=== PATIENT | male | born 1935 | race Caucasian/White ===

== ENCOUNTER 2023-05-17 09:37 | Outpatient (OUT) | payer MEDICARE, SELFPAY ==
--- NOTE | 2023-05-17 09:44 | ECG_ITS ---
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: : 1935 Requested By: JEFFREY GRIMM Order Number: [id number] Reading MD: ZAID CANSECO Measurements Intervals [place] Rate: 62 P: -24 LA: 181 QRS: -54 QRSD: 126 T: 77 QT: 444 QTc: 452 Interpretive Statements SINUS RHYTHM WITH OCCASIONAL VENTRICULAR PREMATURE COMPLEXES LEFT ANTERIOR FASCICULAR BLOCK [QRS AXIS <= -45, QR IN I, RS IN II] VOLTAGE CRITERIA FOR LVH [MEETS CRITERIA IN ONE OF: R(aVL), S(V1), R(V5), R(V5/V6)+S(V1)] POSSIBLE SEPTAL MYOCARDIAL INFARCTION [30 ms Q WAVE IN V1/V2], OF INDETERMINATE AGE No previous ECG available for comparison Electronically Signed On 05-17-2023 22:35:32 EDT by ZAID CANSECO
--- NOTE | 2023-05-17 10:40 | XR_ITS ---
The [address] [address] Patient Name: CHRISTIANE SALAS MRN: [id number] date: 1935 Sex: M Assigned Patient Location: [facility] Current Patient Location: [facility] Accession/Order Number: [id number] Exam Date: 05/17/2023 10:40 Report Date: 05/17/2023 11:50 At the request of: JEFFREY GRIMM Procedure: XR chest 2V EXAM: XR chest 2V HISTORY: Preop exam COMPARISON: None. TECHNIQUE: PA and lateral views of the chest. FINDINGS: The cardiomediastinal silhouette is normal. No focal consolidation is identified. There is no pneumothorax. No pleural effusion is noted. The osseous structures are intact. XR/XR chest 2V IMPRESSION: No acute cardiopulmonary process. Electronically authenticated by: CHAZ DALAL Date: 05/17/2023 11:50
[2023-05-17 10:46] LABS: Basophils Absolute Auto 0.1 10^3/uL (0.0-0.1); Eosinophils Absolute Auto 0.2 10^3/uL (0.0-0.7); Eosinophils Percent Auto 2.7 % (0.9-7.0); Hemoglobin 14.2 g/dL (14.0-18.0); Immature Granulocytes Abs Auto 0.01 10^3/uL (0.00-0.03); Immature Granulocytes Pct Auto 0.2 % (0.0-0.5); Lymphocytes Absolute Auto 1.8 10^3/uL (1.2-3.8); Lymphocytes Percent Auto 30.4 % (20.5-60.0); Mean Corpuscular HGB Conc 32.3 g/dL (29.9-35.2); Mean Corpuscular Hemoglobin 28.4 pg (25.9-34.0); Monocytes Absolute Auto 0.7 10^3/uL (0.3-0.8); Monocytes Percent Auto 11.2 % (1.7-12.0); Neutrophils Absolute Auto 3.2 10^3/uL (1.4-6.5); Neutrophils Percent Auto 54.5 % (43.0-75.0); Platelet Count 133 10^3/uL (150-450); Red Cell Distribution Width 13.9 % (11.0-15.0); White Blood Count 5.9 10^3/uL (4.0-11.0)
[2023-05-17 11:05] LABS: INR 1.06; Partial Thromboplastin Time 26.8 sec (22.3-36.2); Prothrombin Time 11.2 sec (9.0-11.6)
[2023-05-17 11:10] LABS: Anion Gap 10.1; Calcium 8.9 mg/dL (8.5-10.1); Carbon Dioxide 29.2 mmol/L (21.0-32.0); Chloride 107 mmol/L (98-107); Estimated GFR (African America >60 (>=60); Estimated GFR (Non-African Ame >60 (>=60); Glucose 99 mg/dL (74-106); Potassium 4.3 mmol/L (3.5-5.1); Sodium 142 mmol/L (136-145)
== END 2023-05-17 09:38 | disposition home or self-care (01) ==
LOC: PST 09:40
PROVIDERS: Visit Provider Urology
DX: Z01.810 Encounter for preprocedural cardiovascular examination (principal); Z01.812 Encounter for preprocedural laboratory examination; N20.1 Calculus of ureter
CPT/HCPCS: 71046; 80048; 85025; 85610; 85730; 93005

== ENCOUNTER 2023-05-19 09:13 | Day surgery (SDC) | payer MEDICARE, SELFPAY ==
[2023-05-17 10:01] VITALS: BP 143/82; PULSE 69; RESP 16; TEMP 36.4; O2SAT 95; BMI 28.3
[2023-05-19] VITALS (9 sets, daily range): BP systolic 140–159; BP diastolic 69–82; PULSE 62–70; RESP 16–20; TEMP 36.1–36.2; O2SAT 93–96
--- NOTE | 2023-05-19 | FL_ITS ---
[address] [address] Patient Name: CHRISTIANE SALAS MRN: [id number] date: 1935 Sex: M [facility] Patient Location: [facility] Accession/Order Number: [id number] Exam Date: 05/19/2023 11:25 Report Date: 05/19/2023 13:23 At the request of: JEFFREY GRIMM Procedure: FL fluoroscopy <1hr NON-READ EXAM: FL fluoroscopy <1hr NON-READ HISTORY: TECHNIQUE: FINDINGS: Please see Operative Report. Electronically authenticated by: RADIOLOGIST NO Date: 05/19/2023 13:23
--- OUTSIDE RECORDS SUMMARY | 2023-05-19 09:21 | XMS_ITS | CCD ---
Author Name Unknown Address [address] [facility] [address] [place] [address] Organization [facility] Care Team Providers Care Mortgage Underwriter Name Role Phone IVETTE PURCELL Unavailable Unavailable MAST, CANDELARIA Unavailable Unavailable BRITNI SANTOS Unavailable Unavailable MAST, CANDELARIA Unavailable Unavailable MCKEON, JEFFREY Admitting Unavailable MCKEON, JEFFREY Attending Unavailable MCKEON, JEFFREY Consulting Unavailable MAST, CANDELARIA Consulting Unavailable MCKEON, JEFFREY Admitting Unavailable MCKEON, JEFFREY Attending Unavailable MCKEON, JEFFREY Consulting Unavailable ARTEM REYES Consulting Unavailable PONCHO HOLM Consulting Unavailable MAST, CANDELARIA Consulting Unavailable Mast, Candelaria E Unavailable Unavailable Unavailable Unavailable Unavailable Da Saba Unavailable Mast, Candelaria Unavailable Mast, Candelaria Unavailable Britni Santos Unavailable Ivette Purcell Admitting Unavailable Ivette Purcell Attending Unavailable Mast, Candelaria Primary Care Unavailable Mast, Candelaria Attending Unavailable Mast, Candelaria Admitting Unavailable Mast, Candelaria Primary Care Unavailable Jazzy, Dr. Butterfield Attending Unavaila ble Mast, Dr. Candelaria Gonzalez Primary Care Unavailabl e Mast, Dr. Candelaria Gonzalez Primary Care Unavailabl e Ivette Purcell Referring Unavailable Ivette Purcell Attending Unavailable Ivette Purcell Attending Unavailable Mast, Dr. Candelaria Gonzalez Primary Care Unavailabl e Ivette Purcell Referring Unavailable Mast, Dr. Candelaria Gonzalez Primary Care Unavailabl e Mast, Dr. Candelaria Gonzalez Primary Care Unavailabl e Ivette Purcell Referring Unavailable Ivette Purcell Attending Unavailable Candelaria Gusman DO Primary Care Provider Ivette Purcell MD Unavailable IVETTE PURCELL Referring Unavailable CANDELARIA GUSMAN Primary Care Unavailable IVETTE PURCELL Attending Unavailable CANDELARIA GUSMAN Primary Care Unavailable Desirae Silva Unavailable CANDELARIA GUSMAN Primary Care Physician Jeffrey MCKEON Admitting Unavailable Jeffrey MCKEON Referring Unavailable Jeffrey MCKEON Attending Unavailable Buddy Pleitez Attending Unavailable MCKEONJeffrey Attending Unavailable Jeffrey MCKEON Attending Unavailable Jeffrye MCKEON Admitting Unavailable Jeffrey MCKEON Attending Unavailable Allergies Allergy Classification Reported Allergen(s) Allergy Type Date of Onset Reaction(s) Facility (6 sources) Penicillin; Translations: [penicillin] Drug Allergy 5 Unknown, [facility] Repository (2 sources) predniSONE; Translations: [predniSONE] Drug Allergy [facility] Repository (18 sources) Angiotensin Converting Enzyme (Venkata) Inhibitors; Translations: [VENKATA Inhibitors] Allergy to drug (finding) 3 [facility] 3 Repository (18 sources) Penicillins; Translations: [Penicillins] Allergy to drug (finding) 3 [facility] 3 Repository (18 sources) Amoxicillin; Translations: [amoxicillin] Drug Allergy dizziness,nause a, stomach upset, dizziness [facility] Other (17 sources) Penicillin G Drug Allergy Unknown [facility] Other (1 source) Penicillins Drug allergy (disorder) 0 [facility] Repository (1 source) predniSONE Drug Allergy 0 [facility] Repository (1 source) Angiotensin-con verting enzyme inhibitor agent Drug Allergy 3 [facility] (1 source) Penicillins Drug Allergy 3 [facility] Work Phone: Medications Current Medications Medication Drug Class(es) Dates Sig (Normalized) Sig (Original) acetaminophen 325 mg / HYDROcodone bitartrate 5 mg oral tablet (1 source) Opioid Agonist Start: 04-13-2023 End: 04-16-2023 [place] 325 mg-5 mg oral tablet 1 tab(s), Oral, q6hr for pain for 3 day(s), 12 tab(s), Refill(s) 0, [facility] [id number], 167.6, cm, 04/13/23 10:07:00 EST, Height/Length Dosing, 79, kg, 04/13/23 10:07:00 EST, Weight Dosing Start Date: 04/13/23 Stop Date: 04/16/23 Status: Ordered albuterol 0.83 mg/ml inhalation solution (20 sources) beta2-Adrenergic Agonist Start: 05-06-2023 albuterol 0.083% Inh Leticia 3 mL Refill(s) 0 Start Date: 05/06/23 Status: Ordered Albuterol Sulfat e (2.5 MG/3ML) 0.083% USE ONE VIAL VIA NEBULIZER THREE TIMES A DAY NEEDED FOR INHALATION. Inhalation Three times a day PRN for 30 days PRN Active take 1 puff(s) by in halation every four hours albuterol 90 mcg/actuation inhaler Inhal e 1 puff every 4 hours if needed. 0 Active Albuterol Sulfat e (2.5 MG/3ML) 0.083% USE ONE VIAL VIA NEBULIZER THREE TIMES A DAY NEEDED FOR INHALATION. Inhalation Three times a day PRN PRN Active ascorbic acid 226 mg / beta carotene 42443 unt / cuprous oxide 0.8 mg / dl-alpha tocopheryl acetate 200 unt / zinc oxide 34.8 mg oral capsule (1 source) Vitamin C PreserVision ARE DS - 2 Orally daily Active aspirin 81 mg delayed release oral tablet (20 sources) Platelet Aggregation Inhibitor, Nonsteroidal Anti-inflammatory Drug Start: 0 take 1 tablet by mouth once daily aspirin 81 mg Oral EC Tab 81 mg = 1 tab(s), Oral, Daily, Refills(s) 0 Start Date: 09/26/19 Status: Ordered take 1 tablet by francis th every twenty-four hours Aspirin 81 MG 1 tablet Orally Once a day for 30 day(s) Active doxycycline hyclate 100 mg oral tablet (3 sources) Tetracycline-class Drug Start: 03-10-2021 take 1 tablet by mouth every twelve hours Doxycycline Hyclate 100 MG 1 tablet Orally every 12 hrs for 10 days Mar, Active Eye Vitamins (17 sources) Eye Vitamins Orally Active Fish Oils (20 sources) Start: 10-23-2018 take 1 capsule by mouth once daily Fish Oil 1 cap(s), Oral, Daily, Refill(s) 0 Start Date: 10/23/18 Status: Ordered Fish Oil 1200 MG Oral Capsule TAKE DIRECTED. Quantity: 0 Refills: 0 Ordered: 14-Oct-2021 DO Active take 1 capsule by mouth once niyah ly Fish Oil 500 MG Oral Capsule TAKE 1 CAPSULE Daily Quantity: 0 Refills: 0 Ordered: 08-Jan-2021 DO Active take 1 capsule by mouth once niyah ly Fish Oil 1200 MG 1 capsule Orally Once a day Active fluocinonide 0.0005 mg/mg topical gel (11 sources) Corticosteroid Start: 05-06-2023 fluocinonide T op 0.05% Gel Refill(s) 0 Start Date: 05/06/23 Status: Ordered Start: 04-06-2022 Fluocinonide 0 .05 % External Gel APPLY TOPICALLY EVERY DAY NEEDED Quantity: 30 Refills: 0 Ordered: 06-Apr-2022 DO Start : 06-Apr-2022 Active fluocinonide (Li dex) 0.05 % gel Apply topically once daily as needed. 0 Active fluticasone propionate 0.05 mg/actuat metered dose nasal spray (18 sources) Corticosteroid take 1 spray(s) nasa l route twice daily as needed Flonase 50 MCG/ACT 1 spray in each nostril Nasally Twice a day for 30 day(s) prn Active take 1 spray(s) nasa l route twice daily as needed Flonase 50 MCG/ACT 1 spray in each nostril Nasally Twice a day for 30 day(s) prn Active 60 actuat fluticasone propionate 0.25 mg/actuat / salmeterol 0.05 mg/actuat dry powder inhaler (4 sources) Corticosteroid, beta2-Adrenergic Agonist Start: 03-17-2022 take 1 puff(s) by inhalation twice daily Wixela Inhub 250-50 MCG/ACT 1 puff Inhalation Twice a day for 30 days Mar, Active 14 actuat fluticasone furoate 0.1 mg/actuat / vilanterol 0.025 mg/actuat dry powder inhaler (19 sources) Corticosteroid, beta2-Adrenergic Agonist Start: 03-21-2023 take 1 puff(s) by inhalation once daily Fluticasone Furoate-Vilanter ol 100-25 MCG/ACT 1 puff Inhalation Once a day for 90 days Mar, Active Start: 07-16-2019 take 1 puff(s) by in halation every other day Breo Ellipta 1 puff(s), Inhalation, Every other day Start Date: 07/16/19 Status: Ordered Start: 04-16-2019 take 1 puff(s) by in halation every other day BREO ELLIPTA 100 mcg/25 mcg 1 puff Inhalation every other day for 90 days Apr, Active take 1 puff(s) by in halation once daily Breo Ellipta 100-25 MCG/ACT 1 puff Inhalation Once a day for 90 days Active Breo Ellipta 200 -25 MCG/INH Inhalation Aerosol Powder Breath Activated as directed Quantity: 0 Refills: 0 Ordered: 08-Jan-2021 DO Active Hydrochlorothiazide-25 mg 25 mg (12 sources) Start: 04-16-2019 take 0.5 tablet by mouth once daily Hydrochlorothiazide-25 mg 25 mg 0.5 tablet Orally daily Apr, Active Start: 04-16-2019 take 1 tablet by francis th every other day Hydrochlorothiazide-25 mg 25 mg 1 tablet Orally every other day for 30 day(s) Apr, Active Hydrochlorothiazide-25 mg 25 MG (5 sources) Start: 04-16-2019 take 0.5 tablet by mouth once daily Hydrochlorothiazide-25 mg 25 MG 0.5 tablet Orally daily Apr, Active hydrocortisone 0.025 mg/mg topical ointment (2 sources) Corticosteroid Start: 05-06-2023 hydrocortisone topical 2.5% ointment Refill(s) 0 Start Date: 05/06/23 Status: Ordered Hydrocortisone 2 .5 % 1 application Externally Once a day Active Knee Scooter for Ambulation (2 sources) Start: 09-27-2019 Knee Scooter for Ambulation Knee Scooter for Ambulation, Print Requisition, Compound Start Date: 09/27/19 Status: Ordered Magnesium (1 source) take 2 tablets by mouth once daily Magnesium 200 MG 2 tablets with a meal Orally Once a day Active metroNIDAZOLE 0.0075 mg/mg topical gel (11 sources) Nitroimidazole Antimicrobial Start: 05-06-2023 metronidazole topical 0.75% gel Refill(s) 0 Start Date: 05/06/23 Status: Ordered Start: 04-06-2022 metroNIDAZOLE 0.75 % External Gel APPLY TOPICALLY TO FACE EVERY DAY Quantity: 45 Refills: 0 Ordered: 08-Apr-2022 DO Start : 06-Apr-2022 Active metroNIDAZOLE (M etrogel) 0.75 % gel Apply topically once daily. APPLY TOPICALLY TO FACE 0 Active Nitro 0.4 mg Tab (3 sources) Start: 10-23-2018 Nitro 0.4 mg T ab = 1 tab(s), SubLingual, q5min, PRN Chest pain, # 25 tab(s), Refills(s) 3 Start Date: 10/23/18 Status: Ordered nitroglycerin 0.4 mg sublingual tablet (20 sources) Nitrate Vasodilator Nitroglyceri n 0.4 MG 1 tablet under the tongue and allow to dissolve as needed Sublingual as needed PRN Active nitroglycerin (N itrostat) 0.[address] 1 tablet (0.4 mg) under the tongue every 5 minutes if needed for chest pain. UNDER THE TONGUE EVERY 5 MINUTES UP TO 3 DOSES NEEDED FOR CHEST PAIN. 0 Active omega 0-ejv-cda-fish oil 360 mg-108 mg- 180 mg-1,200 mg capsule (1 source) omega 3-dha-epa- fish oil 360 mg-108 mg- 180 mg-1,200 mg capsule Take by mouth. 0 Active ondansetron 4 mg oral tablet (2 sources) Serotonin-3 Receptor Antagonist Start: 021 take 1 tablet by mouth three times daily Zofran ODT 4 mg Tab 4 mg = 1 tab(s), Oral, TID, # 10 tab(s), Refills(s) 0, Pharmacy: [id number], 167.6, cm, 12/19/20 13:23:00 EDT, Height/Length Dosing, 77, kg, 12/19/20 13:23:00 EDT, Weight Dosing Start Date: 12/19/20 Status: Ordered predniSONE 20 mg oral tablet (3 sources) Start: 022 take 3 tablets by mouth every twenty-four hours predniSONE 20 MG 3 tablet Orally Once a day for 5 days Mar, Active PreserVision AREDS 2 (3 sources) Start: 021 take 1 tablet by mouth twice daily PreserVision AREDS 2 1 tab(s), Oral, BID, Refill(s) 0 Start Date: 12/19/20 Status: Ordered rosuvastatin calcium 40 mg oral tablet (20 sources) HMG-CoA Reductase Inhibitor Start: 019 take 1 tablet by mouth at bedtime Crestor 40 mg Tab 40 mg = 1 tab(s), Oral, Bedtime, Refills(s) 0 Start Date: 10/23/18 Status: Ordered tacrolimus 0.001 mg/mg topical ointment (2 sources) Calcineurin Inhibitor Immunosuppressant Start: 024 tacrolimus topical 0.1% ointment Refill(s) 0 Start Date: 05/06/23 Status: Ordered Protopic Active tamsulosin hydrochloride 0.4 mg oral capsule (1 source) alpha-Adrenergic Neel Start: 04-13-2023 End: 04-27-2023 take 1 capsule by mouth once daily Flomax 0.4 mg Cap 0.4 mg = 1 cap(s), Oral, Daily, X 14 day(s), # 14 cap(s), Refills(s) 0, Pharmacy: [id number], 167.6, cm, 04/13/23 10:07:00 EST, Height/Length Dosing, 79, kg, 04/13/23 10:07:00 EST, Weight Dosing Start Date: 04/13/23 Stop Date: 04/27/23 Status: Ordered valsartan 80 mg oral tablet (2 sources) Angiotensin 2 Receptor Neel Start: 03-12-2021 take 1 tablet by mouth every twenty-four hours Valsartan 80 MG 1 tablet Orally Once a day for 30 day(s) Mar, Active vit L-P-lezqop-zinc-lut ein (Eye Multivit-Lutein,C-E -Cu-Zn,) 226 mg-90 mg-2 mg-34.8 mg-5 mg capsule (1 source) vit W-M-oagbpm-zinc-susy tein (Eye Multivit-Lutein,C- E-Cu-Zn,) 226 mg-90 mg-2 mg-34.8 mg-5 mg capsule Take by mouth. 0 Active Zofran ODT 4 mg Tab-Dis (2 sources) Start: 04-13-2023 take 1 tablet by mouth every eight hours as needed for nausea Zofran ODT 4 mg Tab-Dis 4 mg = 1 tab(s), Oral, q8hr, PRN Nausea/Vomiting, # 30 tab(s), Refills(s) 0, Pharmacy: [id number], 167.6, cm, 04/13/23 10:07:00 EST, Height/Length Dosing, 79, kg, 04/13/23 10:07:00 EST, Weight Dosing Start Date: 04/13/23 Status: Ordered Completed/Discontinued Medications Medication Drug Class(es) Dates Sig (Normalized) Sig (Original) Eye Multivitamin/Lutein CAPS (10 sources) Eye Multivitamin /Lutein CAPS TAKE DIRECTED. Quantity: 0 Refills: 0 Ordered: 14-Oct-2021 DO Active hydroCHLOROthiazide 25 mg oral tablet (20 sources) Thiazide Diuretic Start: End: 4 take 1 tablet by mouth once daily hydroCHLOROthiazide (HYDRODiuril) 25 mg tablet Take 1 tablet (25 mg) by mouth once daily. 0 07/01/2020 03/08/2023 Discontinued (Therapy completed) Start: 09-26-2019 take 1 tablet by francis th every other day hydrochlorothiazide 25 mg oral tablet 25 mg = 1 tab(s), Oral, Every other day, Refills(s) 0 Start Date: 09/26/19 Status: Ordered take 0.5 tablet by m outh once daily hydroCHLOROthiazide 25 MG Oral Tablet TAKE 0.5 TABLET Daily Quantity: 45 Refills: 3 Ordered: 15-Jul-2022 DO Active losartan potassium 25 mg oral tablet (15 sources) Angiotensin 2 Receptor Neel Start: 03-10-2020 take 0.5 tablet by mouth once daily Losartan Potassium 25 MG Oral Tablet TAKE 1/2 TABLET BY MOUTH ONE TIME A DAY Quantity: 45 Refills: 0 Ordered: 05-Dec-2020 DO Start : 10-Mar-2020 Active Start: 10-23-2018 losartan 25 mg Tab 12.5 mg = 0.5 tab(s), Oral, Bedtime, Refills(s) 0 Start Date: 10/23/18 Status: Ordered magnesium oxide 400 mg oral tablet (2 sources) Start: 11-18-2022 take 1 tablet by mouth twice daily Magnesium Oxide 400 MG Oral Tablet TAKE 1 TABLET TWICE DAILY. Quantity: 180 Refills: 1 Ordered: 18-Nov-2022 Ivette Purcell MD Start : 18-Nov-2022 Active magnesium oxide (Mag-Ox) 400 mg tablet 1 tablet (400 mg) once daily. 0 Active 24 hr metoprolol succinate 25 mg extended release oral tablet (20 sources) beta-Adrenergic Neel Start: 11-18-2022 take 1 tablet by mouth once daily Metoprolol Succinate ER 25 MG Oral Tablet Extended Release 24 Hour TAKE 1 TABLET DAILY. Quantity: 90 Refills: 3 Ordered: 18-Nov-2022 Ivette Purcell MD Start : 18-Nov-2022 Active Start: 08-06-2020 take 0.5 tablet by out twice daily Metoprolol Tartrate 25 MG Oral Tablet TAKE 1/2 (ONE-HALF) TABLET BY MOUTH TWICE DAILY Quantity: 90 Refills: 0 Ordered: 11-Aug-2022 Ivette Purcell MD Start : 06-Aug-2020 Active Start: 08-06-2020 End: 03-08-2023 take 0.5 tablet by mouth once daily metoprolol tartrate (Lopressor) 25 mg tablet Take 0.5 tablets (12.5 mg) by mouth once daily. 0 08/06/2020 03/08/2023 Discontinued (Duplicate order) Start: 09-26-2019 Metoprolol tar trate 25 mg Tab 12.5 mg = 0.5 tab(s), Oral, BID Start Date: 09/26/19 Status: Ordered take 1 tablet by francis once daily metoprolol tartrate (Lopressor) 25 mg tablet Take 1 tablet (25 mg) by mouth once daily. 0 Active Problems Active Problems Problem Classification Problem Date Documented Date Episodic/Chronic Asthma (20 sources) Asthma; Translations: [Asthma, unspecified type, unspecified] Onset: 3 Resolved: 2 Chronic Calculus of urinary tract (11 sources) Calculus of kidney; Translations: [Renal colic] Onset: 9 Episodic Cardiac dysrhythmias (20 sources) Unspecified atrial fibrillation; Translations: [Cardiac arrhythmia] Onset: 9 Resolved: 2 Chronic Cardiac dysrhythmias (12 sources) Bradycardia, unspecified; Translations: [Bradycardia] Onset: 3 Episodic Chronic obstructive pulmonary disease and bronchiectasis (20 sources) Chronic obstructive lung disease; Translations: [Chronic obstructive pulmonary disease, unspecified] Onset: 1 Resolved: 1 Chronic Coronary atherosclerosis and other heart disease (20 sources) Atherosclerotic heart disease of [place] coronary artery without angina pectoris; Translations: [Disorder of coronary artery] Onset: 8 03-08-2023 Chronic Coronary atherosclerosis and other heart disease (1 source) Presence of coronary angioplasty implant and graft; Translations: [PRESENCE COR ANGPLSTY IMPLANT AND GRAFT] Onset: 9 Episodic Coronary atherosclerosis and other heart disease (1 source) Coronary atherosclerosis and other heart disease Onset: 8 Disorders of lipid metabolism (20 sources) Hyperlipidemia; Translations: [Other and unspecified hyperlipidemia] Onset: 3 03-08-2023 Chronic Disorders of lipid metabolism (1 source) Pure hypercholesterolemia, unspecified; Translations: [PURE HYPERCHOLESTEROLEMIA UNSPEC] Onset: 9 Essential hypertension (20 sources) Essential (primary) hypertension; Translations: [Hypertensive disorder] Onset: 8 Resolved: 2 Chronic Essential hypertension (2 sources) Essential hypertension Onset: 8 Genitourinary symptoms and ill-defined conditions (10 sources) Hematuria, unspecified; Translations: [Microscopic hematuria] Onset: 9 09-17-2018 Episodic Heart valve disorders (20 sources) Aortic valve stenosis; Translations: [Aortic valve disorders] Onset: 3 03-08-2023 Chronic Heart valve disorders (4 sources) Cardiac murmur, unspecified; Translations: [Heart murmur] Onset: 9 09-17-2018 Episodic Hyperplasia of prostate (6 sources) Benign prostatic hyperplasia without lower urinary tract symptoms; Translations: [Benign prostatic hypertrophy with outflow obstruction] Onset: 9 07-16-2019 Chronic Immunizations and screening for infectious disease (8 sources) Patient encounter status; Translations: [Other specified vaccination] Onset: 2 Resolved: 2 Episodic Inflammatory conditions of male genital organs (3 sources) 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-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 Other aftercare (1 source) ocean transportation intermediary (current) use of anticoagulants; Translations: [PLATING EQUIPMENT TENDER CURRNT USE ANTICOAGULANTS] Onset: 9 Episodic Other aftercare (1 source) [facility] (current) use of aspirin; Translations: [HALF-WAY CURRENT USE OF ASPIRIN] Onset: 9 Episodic Other and ill-defined heart disease (18 sources) Diastolic dysfunction; Translations: [Heart disease, unspecified] Chronic Other and ill-defined heart disease (4 sources) Heart disease, unspecified; Translations: [Diastolic dysfunction I51.9] Onset: 1 Resolved: 2 Chronic Other diseases of kidney and ureters (1 source) Urinary tract obstruction; Translations: [Hydronephrosis with renal and ureteral calculous obstruction] Onset: 4 Episodic Other injuries and conditions due to external causes (3 sources) Compression injury of nerve 07-16-2019 Episodic Other lower respiratory disease (18 sources) Dyspnea; Translations: [Other respiratory abnormalities] Onset: 3 12-15-2022 Episodic Other lower respiratory disease (1 source) Dyspnea on exertion; Translations: [Other forms of dyspnea] 03-08-2023 Episodic Other lower respiratory disease (2 sources) Other forms of dyspnea; Translations: [Other forms of dyspnea] Onset: 3 Episodic Other nutritional; endocrine; and metabolic disorders (18 sources) Overweight in adulthood with body mass index of 25 or more but less than 30; Translations: [Overweight] Onset: 3 03-08-2023 Episodic Other nutritional; endocrine; and metabolic disorders (3 sources) Body mass index 25-29 - overweight 07-16-2019 Episodic Ashley-; endo-; and myocarditis; cardiomyopathy (except that caused by tuberculosis or sexually transmitted disease) (18 sources) Valvular endocarditis; Translations: [Endocarditis, valve unspecified, unspecified cause] Onset: 3 Chronic Residual codes; unclassified (17 sources) Sleep apnea; Translations: [Unspecified sleep apnea] Onset: 3 12-15-2022 Chronic Residual codes; unclassified (1 source) Sleep apnea, unspecified Chronic Residual codes; unclassified (1 source) Obstructive sleep apnea syndrome; Translations: [Obstructive sleep apnea (adult) (pediatric)] 03-08-2023 Chronic Residual codes; unclassified (2 sources) Obstructive sleep apnea (adult) (pediatric); Translations: [Obstructive sleep apnea (adult) (pediatric)] Onset: 3 Chronic Retinal detachments; defects; vascular occlusion; and retinopathy (20 sources) Degenerative disorder of macula ; Translations: [Macular degeneration] Chronic Screening and history of mental health and substance abuse codes (5 sources) Personal history of nicotine dependence; Translations: [Ex-smoker] Onset: 9 03-08-2023 Episodic Spondylosis; intervertebral disc disorders; other back problems (19 sources) Acute back pain with sciatica; Translations: [Lumbago with sciatica, left side] Episodic Substance-related disorders (3 sources) Smoker 09-25-2019 Chronic Comment on above: Added secondary to d ocumentation in Social History. Unclassified (1 source) Pure hypercholesterolemia, unspecified / E78.00(ICD-9) Onset: 8 Unclassified (2 sources) Athscl heart disease of [place] coronary artery w/o ang pctrs / I25.10(ICD-9) Onset: 8 Unclassified (1 source) Bradycardia, unspecified; Translations: [Bradycardia, unspecified] Onset: 3 Unclassified (1 source) Supraventricular tachycardia, unspecified; Translations: [Supraventricular tachycardia, unspecified] Onset: 3 Unclassified (3 sources) Drug therapy finding 09-17-2018 Unclassified (1 source) Obstructive hydronephrosis 05-06-2023 Past or Other Problems Problem Classification Problem Date Documented Date Episodic/Chronic Conditions associated with dizziness or vertigo (2 sources) Benign paroxysmal vertigo, left ear Onset: 01-15-2021 Resolved: 02-05-2021 Episodic Unclassified (17 sources) Never smoked tobacco; Translations: [Never a smoker] Unclassified (1 source) Onset: 03-08-2023 03-08-2023 Unclassified (1 source) Supraventricular tachycardia, unspecified; Translations: [Supraventricular tachycardia, unspecified] Onset: 03-08-2023 Results Test Name Value Interpretation Reference Range Facil ity ECG 12-Leadon 05-18-2023 ECG 12-Lead [id number] 0TIFF [facility] Consultation Noteon 05-17-19 Consultation Note [id number]#1.0 0TIFF [facility] ECG 12-Leadon 05-17-2023 ECG 12-Lead [id number]#1.0 0TIFF [facility] Lab Reportson 05-17-2023 Lab Reports [id number] 0TIFF [facility] Lab Reports [id number]#1.0 0TIFF [facility] RAD - MISCon 05-17-2023 RAD - MISC [id number]#1.0 0TIFF [facility] Consent for Procedure/Surger yon 05-16-2023 Consent for Procedure/Surgery [id number] 0TIFF [facility] Consent for Treatmenton Consent for Treatment [id number]#1.0 0TIFF [facility] Creatinineon 05-10-2023 Creatinine [Mass/Vol] 0.9 mg/dL Normal 0[facility]5-1.3 [facility] Comment on above: Order Comment: order scanned into chart. [id number] 05/10/2023 08:20:25 EST Performed By: #### [id number] ####[facility] [id number] [place] [address] Physician Orderon 05-10-2023 Physician Order [id number]. 00TIFF [facility] XR IVPon 05-10-2023 XR IVP Exam Date/Time: 05/10/2023 09:15 EST Reason for Exam: Ureteral stone with hydro;Other (please specify) Report IMPRESSION: MILD LEFT-SIDED HYDROURETERONEPHROSIS SECONDARY TO A 5 MM CALCULUS WITHIN THE DISTAL LEFT URETER. EXAMINATION: XR IVP HISTORY: Ureteral calculus with hydronephrosis COMPARISON: CT abdomen pelvis 04/13/2023 TECHNIQUE: Pulmonology Physician view of the abdomen and pelvis was obtained followed by images obtained at 3, 5, and 10 minutes post administration of contrast. Post void radiographs were taken FINDINGS: Pulmonology Physician radiograph demonstrates a 5 mm calculus at the expected level of the distal left ureter. There is prompt excretion of contrast bilaterally. Normal course of the ureters. Mild left-sided hydroureteronephrosis secondary to the calculus within the distal left ureter. No overt abnormality of the urinary bladder. Ordering Provider: Jeffrey MCKEON FINAL REPORT Dictated: 05/10/2023 4:28 pm Brooks Kirk DO Signed (Electronic Signature): 05/10/2023 4:28 pm Signed by: Brooks Kirk DO Transcribed by: HEAVEN Technologist: CHRIST Technical Comments Contrast: Isovue 300 Contrast amount in ml's: 50 Normal [facility] eGFRon 05-10-2023 eGFR 83 mL/min/1.73 m2 Normal >=59 [facility] Comment on above: Order Comment: Order added by Discern Expert. Performed By: #### 2 [id number], [id number] ####[facility] [address] [place] [address] Ambulatory Visit Summaryon 0 05-06-2023 Ambulatory Visit Summary ABHIJIT TAVAREZ :1935 Visit Date:05/06/2023 Ambulatory Visit Instructions Your Diagnosis Ureteral stone with hydronephrosis History of kidney stones BPH with urinary obstruction Your Care Team Attending Physician - SIRISHA JEAN, Jeffrey Arredondo Primary Care Physician - CANDELARIA GUSMAN DO This Is Your Medications List Contact prescribing physician if questions or concerns albuterol (albuterol 0.083% Inh Leticia 3 mL) aspirin (aspirin 81 mg Oral EC Tab) fluocinonide topical (fluocinonide Top 0.05% Gel) hydrocortisone topical (hydrocortisone topical 2.5% ointment) metoprolol (Metoprolol tartrate 25 mg Tab) metronidazole topical (metronidazole topical 0.75% gel) multivitamin with minerals (PreserVision AREDS 2) nitroglycerin (Nitro 0.4 mg Tab) omega-3 polyunsaturated fatty acids (Fish Oil) rosuvastatin (Crestor 40 mg Tab) tacrolimus topical (tacrolimus topical 0.1% ointment) Procedures Performed Open reduction of fracture (09/26/2019), ESWL - Extracorporeal shock wave lithotripsy of bile duct calculus (09/21/2018), TURP - Transurethral resection of prostate (06/27/2018), Angioplasty, Cataract extraction, Stent placement, Tonsillectomy, Vasectomy. Discharge Vitals Heart Rate (Peripheral) 68 Respiratory Rate 16 Blood Pressure 117/81 Height 168 cm Height 66 in Weight 79 kg Weight 173.8 lb BMI 27.99 What to do next Scheduled Follow-Up Appointments Tuesday 8:00 AM EST Where: [facility] You Need to Schedule the Following Appointments Follow Up with SIRISHA JEAN, LO Harper When: Where: [address] [place] [address]- You Need to Complete the Following Creatinine, Blood, Routine collect, 05/06/23, Order for future visit, Lab Collect, Ureteral stone with hydronephrosis Normal History of kidney stones, pp_set_radiology _subspecialty, Not Required, F...\.br\ Medications\.br\ What How Much When Instructions\.br \ Unchanged albuterol (albuterol 0.083% Inh Leticia 3 mL) Contact prescribing physician if questions or concerns \.br\ Unchanged aspirin (aspirin 81 mg Oral EC Tab) 1 Tablets By Mouth Every day Contact prescribing physician if questions or concerns \.br\ Unchanged fluocinonide topical (fluocinonide Top 0.05% Gel) Contact prescribing physician if questions or concerns \.br\ Unchanged hydrocortisone topical (hydrocortisone topical 2.5% ointment) Contact prescribing physician if questions or concerns \.br\ Unchanged metoprolol (Metoprolol tartrate 25 mg Tab) 0.5 Tablets By Mouth 2 times a day Contact prescribing physician if questions or concerns \.br\ Unchanged metronidazole topical (metronidazole topical 0.75% gel) Contact prescribing physician if questions or concerns \.br\ Unchanged multivitamin with minerals (PreserVision AREDS 2) 1 Tablets By Mouth 2 times a day Contact prescribing physician if questions or concerns \.br\ Unchanged nitroglycerin (Nitro 0.4 mg Tab) 1 Tablets Sublingual Every 5 minutes as needed for Chest pain Contact prescribing physician if questions or concerns \.br\ Unchanged omega-3 polyunsaturated fatty acids (Fish Oil) 1 Capsules By Mouth Every day Contact prescribing physician if questions or concerns \.br\ Unchanged rosuvastatin (Crestor 40 mg Tab) 1 Tablets By Mouth At bedtime Contact prescribing physician if questions or concerns \.br\ Unchanged tacrolimus topical (tacrolimus topical 0.1% ointment) Contact prescribing physician if questions or concerns \.br\ Allergies\.br\ penicillin (Swelling)\.br\ Problems\.br\ Ongoing - Any problem that you are currently receiving treatment for.\.br\ Anticoagulated\. br\ Atrial fibrillation\.br \ BMI 28.0-28.9,adult\ .br\ BPH with urinary obstruction\.br\ Chronic prostatitis\.br\ Coronary artery disease\.br\ Enlarged prostate with urinary obstruction\.br\ Former smoker\.br\ Heart murmur\.br\ History of kidney stones\.br\ Hypercholesterem ia\.br\ Kidney stones\.br\ Microscopic hematuria\.br\ Nocturia\.br\ Pinched nerve\.br\ Smoker\.br\ Ureteral stone with hydronephrosis\. br\ Urinary urgency\.br\ Patient Survey\.br\ You may receive a survey via text or e-mail asking about your office visit. Please share your experience with us by completing your survey. We appreciate your feedback and thank you for choosing us for your care.\.br\ Education Materials\.br\ Hydronephrosis\. br\ \.br\ Hydronephrosis is the swelling of one or both kidneys due to a blockage that stops urine from flowing out of the body. Kidneys filter waste from the blood and produce urine. This condition can lead to kidney failure and may become life-threatening if not treated promptly.\.br\ What are the causes?\.br\ In infants and children, common causes include problems that occur when a baby is developing in the womb. These can include problems in the kidneys or in the tubes that drain urine into the bladder (ureters).\.br\ In adults, common causes include:\.br\ ? \.br\ Kidney stones.\.br\ ? \.br\ .\.br\ ? \.br\ A tumor or cyst in the abdomen or pelvis.\.br\ ? \.br\ An enlarged prostate gland.\.br\ Other causes include:\.br\ ? \.br\ Bladder infection.\.br\ ? \.br\ Scar tissue from a previous surgery or injury.\.br\ ? \.br\ A blood clot.\.br\ ? \.br\ Cancer of the prostate, bladder, uterus, ovary, or colon.\.br\ What are the signs or symptoms?\.br\ Symptoms of this condition include:\.br\ ? \.br\ Pain or discomfort in your side (flank) or abdomen.\.br\ ? \.br\ Swelling in your abdomen.\.br\ ? \.br\ Nausea and vomiting.\.br\ ? \.br\ Fever.\.br\ ? \.br\ Pain when passing urine.\.br\ ? \.br\ Feelings of urgency when you need to urinate.\.br\ ? \.br\ Urinating more often than normal.\.br\ In some cases, you may not have any symptoms.\.br\ How is this diagnosed?\.br\ This condition may be diagnosed based on:\.br\ ? \.br\ Your symptoms and medical history.\.br\ ? \.br\ A physical exam.\.br\ ? \.br\ Blood and urine tests.\.br\ ? \.br\ Imaging tests, such as an ultrasound, CT scan, or MRI.\.br\ ? \.br\ A procedure to look at your urinary tract and bladder by inserting a scope into the urethra (cystoscopy).\.b r\ How is this treated?\.br\ Treatment for this condition depends on where the blockage is, how long it has been there, and what caused it. The goal of treatment is to remove the blockage. Treatment may include:\.br\ ? \.br\ Antibiotic medicines to treat or prevent infection.\.br\ ? \.br\ A procedure to place a small, thin tube (stent) into a blocked ureter. The stent will keep the ureter open so that urine can drain through it.\.br\ ? \.br\ A nonsurgical procedure that crushes kidney stones with shock waves (extracorporeal shock wave lithotripsy).\.b r\ ? \.br\ If kidney failure occurs, treatment may include dialysis or a kidney transplant.\.br\ Follow these instructions at home:\.br\ \.br\ ? \.br\ Take dpku-lgc-bqninxc and prescription medicines only as told by your health care provider.\.br\ ? \.br\ If you were prescribed an antibiotic medicine, take it exactly as told by your health care provider. Do not stop taking the antibiotic even if you start to feel better.\.br\ ? \.br\ Rest and return to your normal activities as told by your health care provider. Ask your health care provider what activities are safe for you.\.br\ ? \.br\ Drink enough fluid to keep your urine pale yellow.\.br\ ? \.br\ Keep all follow-up visits. This is important.\.br\ Contact a health care provider if:\.br\ ? \.br\ You continue to have symptoms after treatment.\.br\ ? \.br\ You develop new symptoms.\.br\ ? \.br\ Your urine becomes cloudy or bloody.\.br\ ? \.br\ You have a fever.\.br\ Get help right away if:\.br\ ? \.br\ You have severe flank or abdominal pain.\.br\ ? \.br\ You cannot drink fluids without vomiting.\.br\ Summary\.br\ ? \.br\ Hydronephrosis is the swelling of one or both kidneys due to a blockage that stops urine from flowing out of the body.\.br\ ? \.br\ Hydronephrosis can lead to kidney failure and may become life-threatening if not treated promptly.\.br\ ? \.br\ The goal of treatment is to remove the blockage. It may include a procedure to insert a stent into a blocked ureter, a procedure to break up kidney stones, or taking antibiotic medicines.\.br\ ? \.br\ Follow your health care provider's instructions for taking care of yourself at home, including instructions about drinking fluids, taking medicines, and limiting activities.\.br\ This information is not intended to replace advice given to you by your health care provider. Make sure you discuss any questions you have with your health care provider.\.br\ Document Revised: 06/10/2020 Document Reviewed: 06/10/2020 [employer] Patient Education ? 2022 [employer].\.br\ \.br\ [facility] Patient Educationon 05-06-19 Patient Education Urology Hydronephrosis Hydronephrosis is the swelling of one or both kidneys due to a blockage that stops urine from flowing out of the body. Kidneys filter waste from the blood and produce urine. This condition can lead to kidney failure and may become life-threatening if not treated promptly. What are the causes? In infants and children, common causes include problems that occur when a baby is developing in the womb. These can include problems in the kidneys or in the tubes that drain urine into the bladder (ureters). In adults, common causes include: ? Kidney stones. ? . ? A tumor or cyst in the abdomen or pelvis. ? An enlarged prostate gland. Other causes include: ? Bladder infection. ? Scar tissue from a previous surgery or injury. ? A blood clot. ? Cancer of the prostate, bladder, uterus, ovary, or colon. What are the signs or symptoms? Symptoms of this condition include: ? Pain or discomfort in your side (flank) or abdomen. ? Swelling in your abdomen. ? Nausea and vomiting. ? Fever. ? Pain when passing urine. ? Feelings of urgency when you need to urinate. ? Urinating more often than normal. In some cases, you may not have any symptoms. How is this diagnosed? This condition may be diagnosed based on: ? Your symptoms and medical history. ? A physical exam. ? Blood and urine tests. ? Imaging tests, such as an ultrasound, CT scan, or MRI. ? A procedure to look at your urinary tract and bladder by inserting a scope into the urethra (cystoscopy). How is this treated? Treatment for this condition depends on where the blockage is, how long it has been there, and what caused it. The goal of treatment is to remove the blockage. Treatment may include: ? Antibiotic medicines to treat or prevent infection. ? A procedure to place a small, thin tube (stent) into a blocked ureter. The stent will keep the ureter open so that urine can drain through it. ? A nonsurgical procedure that crushes kidney stones with shock waves (extracorporeal shock wave lithotripsy). ? If kidney failure occurs, treatment may include dialysis or a kidney transplant. Follow these instructions at home: ? Take bgai-zzn-lvloolm and prescription medicines only as told by your health care provider. ? If you were prescribed an antibiotic medicine, take it exactly as told by your health care provider. Do not stop taking the antibiotic even if you start to feel better. ? Rest and return to your normal activities as told by your health care provider. Ask your health care provider what activities are safe for you. ? Drink enough fluid to keep your urine pale yellow. ? Keep all follow-up visits. This is important. Contact a health care provider if: ? You continue to have symptoms after treatment. ? You develop new symptoms. ? Your urine becomes cloudy or bloody. ? You have a fever. Get help right away if: ? You have severe flank or abdominal pain. ? You cannot drink fluids without vomiting. Summary ? Hydronephrosis is the swelling of one or both kidneys due to a blockage that stops urine from flowing out of the body. ? Hydronephrosis can lead to kidney failure and may become life-threatening if not treated promptly. ? The goal of treatment is to remove the blockage. It may include a procedure to insert a stent into a blocked ureter, a procedure to break up kidney stones, or taking antibiotic medicines. ? Follow your health care provider's instructions for taking care of yourself at home, including instructions about drinking fluids, taking medicines, and limiting activities. This information is not intended to replace advice given to you by your health care provider. Make sure you discuss any questions you have with your health care provider. Document Revised: 06/10/2020 Document Reviewed: 06/10/2020 [employer] Patient Education ? 2022 [employer]. [facility] Screenson 05-06-2023 Screens [id number] Normal [facility] Urology Office/Clinic Noteon 05-06-2023 Urology Office/Clinic Note Chief Complaint ER f/u HPI Staff New pt here for f/u to ER visit. Last seen in office 07/16/19 by PRW. Previous dx: enlarged prostate with urinary obstruction, kidney stones, nocturia. S/p TURP 06/27/18 and ESWL 09/21/18. [facility] ER visit 04/13/23. CC: L flank pain, N&V, irregular heartbeat, clammy, and dizzy. Given [place], Zofran, fluids, and Flomax. Urine strainer also provided. CT AP wo con 04/13/23 [facility] [place] - 6 x 4 mm L UVJ stone. Denies current pain. Denies pain/burning and visible blood in urine. Does not think he passed stone. Intermittent urgency, occasional leaking. Not often. Not bothersome. Strong stream. History of Present Illness Tests reviewed: reviewed UA, ER records, CT, and labs. I have reviewed the previous health record information and history for this patient from external provider. I have reviewed and verified the staff HPI to be accurate for this encounter. There have been no associated fever, chills, flank pain, or blood in the urine. Denies any urinary infections since last encounter. Review of Systems PHQ Score Initial Depression Screen Score: 0 SCORE ROS - Provider Constitutional: denies weight loss, denies hot flashes. Eyes: denies eye problems. Gastrointestinal: denies nausea, denies vomiting. Cardiovascular: denies chest pain or angina. Integumentary: no dryness Musculoskeletal: denies musculoskeletal symptoms. ENMT: denies otolaryngeal symptoms. Respiratory: no shortness of breath. Heme/Lymph: denies easy bleeding tendency, denies easy bruising tendency. Psychiatric: no confusion, no anxiety. Genitourinary: See HPI. Physical Exam Vitals & Measurements HR: 68(Peripheral) RR: 16 BP: 117/81 HT: 66 in HT: 168 cm WT: 79 kg WT: 173.8 lb BMI: 27.99 General Appearance: alert, no distress, well nourished, well developed male. Head: normocephalic . Eyes: normal orbit and globe. ENMT: normal examination of external ears. Chest: Lungs CTA, respirations non labored. Cardiovascular: regular rate and rhythm. Abdomen: soft, non distended, no tenderness, no mass or organomegaly, no hernia. Genitourinary: normal scrotum, normal testes, normal urethra, normal epididymis, normal vas deferens/spermatic cord. Flank Pain: Symmetrical tenderness on exam. Bladder: nonpalpable. Penis: normal shaft, normal glans. Lymph Nodes: unremarkable palpation of the cervical area. Skin: warm, dry, no bruising. Psychiatric: cooperative, affect appropriate for age, normal judgement, euthymic mood. Assessment/Plan Abhijit is an 88 yo male new to our office due to recent [facility] ER visit. Last seen by Dr. Mckeon 07/2019. Last seen in office 07/16/19 by PRW. 1. Ureteral stone with hydronephrosis (N13.2: Hydronephrosis with renal and ureteral calculous obstruction) Pt presented to [facility] ER 04/13/23 with left sided flank pain, N/V, irregular heartbeat, and dizziness. CT AP wo con 04/13/23 shows a 6x 4 mm distal left ureteral calculus near the UVJ with mild left hydronephrosis and ill-defined perinephric edema. Given [place], Zofran, fluids, and Flomax. Urine strainer also provided, however pt states he was not given one. Pt does not think he passed the stone. UA today negative for blood. Pt states he looked in the toilet after voiding the first few weeks, but has no longer been watching to see if he passes it. Pt does state that he has been dealing with intermittent twinges even prior to ER visit. Total of 4 months. KUB 05/04/23 does not mention stone. Stool burden. Symmetrical tenderness on exam. Discussed scheduling CT vs IVP for further eval. Will proceed with IVP. If the stone is still present, will schedule cysto, ureteroscopy, laser litho with stent placement. Risks/benefits discussed today. In the event of uncontrolled pain, N/V, fever or chills, pt needs to present to the ER. -Schedule IVP, pt to be called with results 2. History of kidney stones (Z87.442: Personal history of urinary calculi) S/p L ESWL 09/2018. No renal stones seen on recent CT. 3. BPH with urinary obstruction (N40.1: Benign prostatic hyperplasia with lower urinary tract symptoms) S/p TURP 06/27/18. Not taking any BPH meds. IPSS 8. Follow-up With When Contact Information Jeffrey MCKEON MD, [address] [place] [address]- Additional Instructions: Schedule IVP --- to be called with results Patient Education Hydronephrosis I, Carmen Beck, personally scribed for Dr. Mckeon on 05/06/2023 10:02:48. . Documentation recorded by the scribCarmen johnson, accurately reflects the services(s) I performed and decisions made by me. Authenticated by Dr. Mckeon on 05/06/2023 10:05:38. Problem List/Past Medical History Ongoing Anticoagulated Atrial fibrillation BMI 28.0-28.9,adult BPH with urinary obstruction Chronic prostatitis Coronary artery disease Enlarged prostate with urinary obstruction Former smoker Hea (more content not included)... Normal [facility] Comment on above: Result Comment: Elec tronically Signed By: Jeffrey MCKEON MD\.br\Date and Time Signed: 05/06/23 10:05 EST\.br\Electronically Co-Signed By: Carmen Beck\.br\Date and Time Co-Signed: 05/06/23 10:02 EST XR Abdomen 1 Viewon 05-05-19 24 XR Abdomen 1 View Exam Date/Time: 05/04/2023 13:47 EST Reason for Exam: N20.0 Calculus of kidney;Kidney stone Report IMPRESSION: THERE ARE NO ACUTE CHANGES CLINICAL HISTORY: Kidney stone, N20.0 Calculus of kidney COMPARISON: NONE. KUB FINDINGS: There are no distended loops of bowel. There is no evidence of obstruction. Evaluation for kidney stones is limited due to overlying bowel gas. There are no acute osseous changes. Ordering Provider: Jeffrey MCKEON FINAL REPORT Dictated: 05/05/2023 12:22 pm Sterling JEAN, Ghulam Delaney Signed (Electronic Signature): 05/05/2023 12:22 pm Signed by: Ghulam Katz MD, V. Transcribed by: HEAVEN Technologist: RADHA Technical Comments Radiation Dose: Ka,r in mGy = na DAP = na Normal [facility] Consent for Treatmenton 04-08 Consent for Treatment [id number] 0TIFF Normal [facility] BMPon 04-13-2023 Anion gap [Moles/Vol] 11 mmol/L Normal 6-16 [facility] Comment on above: Performed By: #### 2 [id number], [id number], 3942355, 1026977, 88138264, 7359918 ####[facility] [address] [place] [address] BUN/Creat Ratio 22 No Units High 10-20 [facility] Comment on above: Performed By: #### 2 223972, [id number], 8525350, 5579302, 39328946, 2180464 ####[facility] [address] [place] [address] Calcium [Mass/Vol] 8.9 mg/dL Normal 8.9-11.1 [facility] Comment on above: Performed By: #### 2 990615, 55937795, 2766749, 9365036, 17971163, 8860458 ####[facility] [address] [place] [address] Chloride [Moles/Vol] 106 mmol/L Normal 101-111 [facility] Comment on above: Performed By: #### 2 798389, 05830908, 8570156, 0683320, 87691054, 2286389 ####[facility] [address] [place] [address] CO2 [Moles/Vol] 26 mmol/L Normal 21-31 [facility] Comment on above: Performed By: #### 2 415753, 58371393, 4710161, 6879910, 14400027, 2484332 ####[facility] [address] [place] [address] Creatinine [Mass/Vol] 1.2 mg/dL Normal 0.5-1.3 [facility] Comment on above: Performed By: #### 2 989674, 88248787, 0113334, 4172064, 85939397, 4718349 ####[facility] [address] [place] [address] Glucose [Mass/Vol] 129 mg/dL Normal 55-199 [facility] Comment on above: Performed By: #### 2 780601, 21449351, 5775293, 2512841, 31424380, 1307972 ####[facility] [address] [place] [address] Potassium [Moles/Vol] 4.4 mmol/L Normal 3.5-5.3 [facility] Comment on above: Performed By: #### 2 898536, 24889597, 4952344, 4575469, 44021797, 6729465 ####[facility] [address] [place] [address] Sodium [Moles/Vol] 139 mmol/L Normal 135-145 [facility] Comment on above: Performed By: #### 2 672323, 84406912, 2367456, 4714804, 69709301, 1278970 ####[facility] [address] [place] [address] Urea nitrogen [Mass/Vol] 26 mg/dL High 5-21 [facility] Comment on above: Performed By: #### 2 283169, 39727102, 2273015, 3572466, 35946748, 1288397 ####[facility] [address] [place] [address] CBC w/ Auto Diffon 4 Basophil Absolute 0.1 E9/L Normal 0.0-0.2 [facility] Comment on above: Performed By: #### 2 826432, 64364842, 2976563, 3139522, 95519394, 5890472 ####[facility] [address] [address] Basophils/100 WBC (Bld) 0.5 % Normal 0.0-2.0 [facility] Comment on above: Performed By: #### 2 428582, 15083932, 3745148, 9603968, 65056177, 4788548 ####[address] [address] Eos Absolute 0.0 E9/L Normal 0.0-0.5 [facility] Comment on above: Performed By: #### 2 843923, 95812524, 0723406, 7083088, 60887396, 0517018 ####[address] [address] Eosinophils/100 WBC (Bld) 0.3 % Normal 0.0-8.0 [facility] Comment on above: Performed By: #### 2 333501, 45515081, 0191040, 7875364, 88749564, 8674378 ####[address] [address] Erythrocyte distribution width (RBC) [Ratio] 15.1 % High 10.9-14.2 [facility] Comment on above: Performed By: #### 2 864977, 08327544, 0680983, 6886485, 70465574, 8575421 ####[address] [address] Hematocrit (Bld) [Volume fraction] 43.0 % Normal 37.7-49.0 [facility] Comment on above: Performed By: #### 2 185300, 52543945, 7774941, 2973786, 57555023, 4013147 ####[address] [address] Hemoglobin (Bld) [Mass/Vol] 13.8 g/dL Normal 13.5-17.5 [facility] Comment on above: Performed By: #### 2 677458, 28374542, 4557231, 9501605, 73411752, 6645132 ####[facility] [address] [place] [address] Lymph Absolute 1.1 E9/L Normal 1.0-4.0 [facility] Comment on above: Performed By: #### 2 583922, 42905864, 5434440, 8910298, 24101641, 9016030 ####[address] [address] Lymphocytes/100 WBC (Bld) 10.1 % Low 14.0-50.0 [facility] Comment on above: Performed By: #### 2 068611, 92214806, 3897866, 9164882, 73405342, 1100967 ####[address] [address] MCH (RBC) [Entitic mass] 27.8 pg Normal 27.0-34.0 [facility] Comment on above: Performed By: #### 2 854756, 43856533, 4111030, 1712705, 86334685, 6331587 ####[address] [address] MCHC (RBC) [Mass/Vol] 32.4 g/dL Normal 31.4-36.0 [facility] Comment on above: Performed By: #### 2 052911, 80098219, 0145175, 5852788, 42583867, 1432658 ####[address] [address] MCV (RBC) [Entitic vol] 85.6 fL Normal 80.0-100.0 [facility] Comment on above: Performed By: #### 2 395359, 50680542, 5947865, 7130954, 19979180, 5066756 ####[place] [address] [place] [address] Garden Absolute 0.6 E9/L Normal 0.2-1.0 [facility] Comment on above: Performed By: #### 2 [id number], [id number], [id number], [id number], [id number], [id number] ####[facility] [address] [place] [address] Monocytes/100 WBC (Bld) 5.3 % Normal 4.0-14.0 [facility] Comment on above: Performed By: #### 2 [id number], [id number], [id number], [id number], [id number], [id number] ####[place] [address] [place] [address] Neutro Absolute 9.3 E9/L High 2.0-7.5 [facility] Comment on above: Performed By: #### 2 [id number], [id number], [id number], [id number], [id number], [id number] ####[address] [address] Neutro Auto 83.8 % High 36.0-75.0 [facility] Comment on above: Performed By: #### 2 662376, [id number], 9932060, 1118208, [id number], [id number] ####[facility] [address] [place] [address] Platelet 145.0 E9/L Low 150.0-500.0 [facility] Comment on above: Performed By: #### 2 336963, [id number], 3737995, 2619732, [id number], [id number] ####[address] [address] Platelet mean volume (Bld) [Entitic vol] 7.8 fL Normal 6.4-10.8 [facility] Comment on above: Performed By: #### 2 715428, [id number], 5473255, 4364946, [id number], [id number] ####[facility] [address] [place] [address] RBC 5.0 E12/L Normal 4.3-5.9 [facility] Comment on above: Performed By: #### 2 100150, [id number], 0805125, 0562923, [id number], [id number] ####[facility] [address] [place] [address] WBC 11.0 E9/L Normal 4.0-11.0 [facility] Comment on above: Performed By: #### 2 257768, [id number], 0953777, 8594762, 17061331, 9304108 ####[facility] [address] [place] [address] CHEMISTRYOrdered By: SYSTEM SYSTEM on 04-13-2023 Albumin [Mass/Vol] 4.2 g/dL Normal 3.3 - 5.0 gm/dL R emisol Chem Albumin/Globulin [Mass ratio] 1.8 {ratio} Normal 1.1 - 2.2 Remisol Chem Alk Phos 35 [iU]/d Normal 21 - 98 Int._Unit/L Remisol Chem ALT 17 [iU]/d Normal 6 - 46 Int._Unit/L Remisol Chem Anion gap [Moles/Vol] 11 mmol/L Normal 6 - 16 mEq/L Remisol Chem AST 19 [iU]/d Normal 5 - 43 Int._Unit/L Remisol Chem Bili Direct 0.1 mg/dL Normal 0.0 - 0.4 mg/dL Remisol Chem Bili Indirect 0.6 mg/dL Normal 0.1 - 0.9 mg/dL Remiso l Chem Bili Total 0.7 mg/dL Normal 0.0 - 1.1 mg/dL Remisol C hem Calcium [Mass/Vol] 8.9 mg/dL Normal 8.9 - 11.1 mg/dL Remisol Chem Chloride [Moles/Vol] 106 mmol/L Normal 101 - 111 mmol/L Remisol Chem CO2 [Moles/Vol] 26 mmol/L Normal 21 - 31 mmol/L Remis ol Chem Creatinine [Mass/Vol] 1.2 mg/dL Normal 0.5 - 1.3 mg/dL Remisol Chem eGFR 59 mL/min/1.73 m2 Normal >=59mL/min /1.73 m2 Remisol Chem Globulin (S) [Mass/Vol] 2.4 g/dL Normal 1.4 - 4.0 gm/dL Remisol Chem Glucose [Mass/Vol] 129 mg/dL Normal 55 - 199 mg/dL Re misol Chem Lipase Lvl 32 unit/L Normal 13 - 58 unit/L Remisol Ch em Potassium [Moles/Vol] 4.4 mmol/L Normal 3.5 - 5.3 mmol/L Remisol Chem Protein [Mass/Vol] 6.6 g/dL Normal 6.0 - 7.8 gm/dL R emisol Chem Sodium [Moles/Vol] 139 mmol/L Normal 135 - 145 mmol/L Remisol Chem Troponin 9.20 pg/mL Low 15.90 - 38.40 pg/mL Remisol Chem Comment on above: Interpretive Data: T he 95% CI (Confidence Interval) PPV (Positive Predictive Value) for myocardial infarction in females is 38 pg/mL, in males 51 pg/mL. The results should be used in conjunction with clinical conditions of myocardial infarction. (Access High Sensitivity Troponin I Instructions For Use, Valeryi Appleton, October 2017) Urea nitrogen [Mass/Vol] 26 mg/dL High 5 - 21 mg/dL Remisol Chem Urea nitrogen/Creatinine [Mass ratio] 22 mg/mg High 10 - [address] Abdomen/Pelvis w/o Contra ston 04-13-2023 CT Abdomen/Pelvis w/o Contrast Exam Date/Time: 04/13/2023 11:59 EST Reason for Exam: Abdominal pain, acute, nonlocalized;Other (please specify) Report IMPRESSION: MILDLY OBSTRUCTING APPROXIMATELY 6 X 4 MM LEFT UVJ CALCULUS. CLINICAL HISTORY: Abdominal pain, acute, nonlocalized. COMPARISON: 09/25/2018. TECHNIQUE: Spiral unenhanced images were obtained of the abdomen and pelvis without contrast. All CT scans at this facility use dose modulation, iterative reconstruction, and/or weight based dosing when appropriate to reduce radiation dose to as low as reasonably achievable. Unless otherwise stated, incidental findings identified in this report do not require routine follow-up imaging. FINDINGS: Liver: No enlargement, fatty infiltration, or suspicious lesion identified without contrast. Biliary: The gallbladder is unremarkable. No bile duct dilation. Pancreas: Unremarkable. No mass or duct dilation identified without contrast. Spleen: Not enlarged. No mass identified without contrast. Adrenals: Unremarkable. Kidneys: Approximately 6 x 4 mm distal left ureteral calculus near the UVJ with mild left hydronephrosis and ill-defined perinephric edema. No other significant urinary tract calculi or suspicious mass. Stable approximately 4.3 cm fluid density right upper pole peripelvic cyst. GI tract: No abnormal dilation or wall thickening. Mild to moderate predominantly sigmoid diverticulosis. Normal appendix. Lymph nodes: No pathologically enlarged lymph nodes. Mesentery/peritoneum: No organized fluid collection, ascites, focal inflammatory changes, or mass. Retroperitoneum: No organized fluid collection, focal inflammatory changes or mass. Vasculature: Borderline fusiform infrarenal abdominal aortic aneurysm to nearly 3 cm, new from 09/25/2018. Mild calcific atherosclerotic plaquing. Pelvis: The nearly decompressed urinary bladder is otherwise unremarkable. No mass, organized fluid collection, or ascites. Bones/soft tissue: No acute osseous findings identified. Mild to moderate degenerative changes, predominantly of the lumbar spine. Small fat-containing bilateral inguinal hernias. Lower thorax: Mild to moderate probable scarring and/or atelectasis. Report Ordering Provider: Buddy Pleitez FINAL REPORT Dictated: 04/13/2023 12:16 pm David Pina MD Signed (Electronic Signature): 04/13/2023 12:16 pm Signed by: David Pina MD Transcribed by: HEAVEN Technologist: KAL Technical Comments Rectal Contrast Given? No Oral contrast amount in ml's: 0 [facility] Consent for Treatmenton Consent for Treatment [id number] [id number] [facility] Discharge Instructionson Discharge Instructions [id number] TIFF [facility] ED Clinical Summaryon 2023 ED Clinical Summary [place] [id number] ED Clinical Summary Person Information Name: ABHIJIT TAVAREZ [facility] Age: 88 Years : 1935 Sex: Male Language: Bruneian PCP: ALEX Sandoval (CANDELARIA RAMIRES Marital Status: Phone: [phone] Visit Id: Visit Reason: Flank pain; Vomiting; Nausea; Palpitations; N/V ABD PAIN CLAMMY COLD IRREGULAR HEART BEAT Speciality: Acuity: 2 Enc Type: Emergency Med Service: Emergency Arrival: 04/13/2023 09:55:58 Discharge: 04/13/2023 13:00:00 LOS: 000 03:05 Checkin: 04/13/2023 09:55:58 Checkout: 04/13/2023 13:00:00 Dispo Type: Home (Routine DC) EVENTS: Event Name Event Status Request Date/Time Start Date/Time Complete Date/Time Arrive Complete 04/13/2023 09:55:58 04/13/2023 09:55:58 04/13/2023 09:55:58 Document Home Meds Request 04/13/2023 09:55:58 Triage Complete 04/13/2023 09:55:58 04/13/2023 10:07:42 04/13/2023 10:07:42 Bed Assign Complete 04/13/2023 10:00:58 04/13/2023 10:00:58 04/13/2023 10:00:58 Dr Exam Complete 04/13/2023 10:00:58 04/13/2023 10:07:07 04/13/2023 10:07:07 RN Exam Complete 04/13/2023 10:00:58 04/13/2023 10:32:08 04/13/2023 10:32:08 EKG Complete 04/13/2023 10:02:05 04/13/2023 10:07:45 Registration Complete 04/13/2023 10:07:07 04/13/2023 10:23:36 04/13/2023 10:23:36 Reg Complete Request 04/13/2023 10:23:36 Reg Bed Request Complete 04/13/2023 10:23:36 04/13/2023 10:23:36 04/13/2023 10:23:36 Meds Admin Complete 04/13/2023 10:48:51 04/13/2023 10:58:55 Pending Labs Complete 04/13/2023 10:48:51 04/13/2023 11:36:33 Lab Complete 04/13/2023 10:48:51 04/13/2023 11:31:05 Urine Collect Complete 04/13/2023 10:48:51 04/13/2023 11:16:50 Patient Care Request 04/13/2023 10:48:51 CT Complete 04/13/2023 10:48:51 04/13/2023 11:47:46 04/13/2023 11:59:50 Pending Labs Complete 04/13/2023 11:02:35 04/13/2023 11:02:35 04/13/2023 11:31:05 Lab Complete 04/13/2023 11:02:35 04/13/2023 11:02:35 04/13/2023 11:31:05 Pending Labs Complete 04/13/2023 11:02:49 04/13/2023 11:02:49 04/13/2023 11:02:50 Discharge Complete 04/13/2023 12:35:14 04/13/2023 13:04:27 04/13/2023 13:04:27 Transfer Complete 04/13/2023 13:04:27 04/13/2023 13:04:27 04/13/2023 13:04:27 AD[address]: [id number] [place] [phone] PHYS DOC NOTES: MEDICAL INFORMATION: Prescriptions Given: New Medications [id number], [address] [facility] [place] [id number], [phone] acetaminophen-hydrocod one (Houston 325 mg-5 mg oral tablet) 1 Tablets By Mouth every 6 hours as needed for pain for 3 Days. Refills: 0. tamsulosin (Flomax 0.4 mg Cap) 1 Capsules By Mouth every day for 14 Days. Refills: 0. Medications to Continue Taking That Have Changed [facility], [address] [facility] [place], [place] [id number], [phone] START: ondansetron (Zofran ODT 4 mg Tab-Dis) 1 Tablets By Mouth every 8 hours as needed Nausea/Vomiting. Refills: 0. Other Medications START: ondansetron (Zofran ODT 4 mg Tab) 1 Tablets By Mouth 3 times a day. Refills: 0. Medications to Continue with No Changes Other Medications aspirin (aspirin 81 mg Oral EC Tab) 1 Tablets By Mouth every day. hydrochlorothiazide (hydrochlorothiazide 25 mg oral tablet) 1 Tablets By Mouth every other day. metoprolol (Metoprolol tartrate 25 mg Tab) 0.5 Tablets By Mouth 2 times a day. Misc Prescription (Knee Scooter for Ambulation) 0. Refills: 0. multivitamin with minerals (PreserVision AREDS 2) 1 Tablets By Mouth 2 times a day. PATIENT EDUCATION INFORMATION: Instructions: Kidney Stones Follow up: With: Address: When: Ricardo JACKSON [address], [address], [facility] [address] [place] [address] Business (1) In 3 days 04/16/2023 Comments: Call Dr for diagnosis based follow up With: Address: When: [facility], [address] [facility], [facility] [place] [address] Business (1) In 3 days 04/16/2023 Comments: Call the office of your primary care doctor to arrange for follow-up within the above-stated timeframe. Follow-up with your primary care doctor about this ED visit. You should review your labs, imaging, and diagnoses from this ED visit with your primary care physician. There are occasionally non-emergent findings that require additional follow-up after your ED visit. If you were prescribed medications you should discuss possible side-effects and drug interactions with your pharmacist. Call 911 or go to the nearest Emergency Department if you develop any new or worsening symptoms. Seek immediate medical attention if you develop: worsening abdominal pain, new or worsening nausea, new or worsening vomiting, new or worsening diarrhea, chest pain, shortness of breath, pain with urination, problems urinating, fever, chills, weakness, or any new or worsening symptoms. DIAGNOSIS: Ureteral colic [facility] ED Note-Physicianon 04-13-19 ED Note-Physician Basic Information Time Seen: Buddy Pleitez DO 04/13/2023 10:07 Chief Complaint Patient presents with left sided flank pain, nausea, vomitting, irregular heartbeat, clammy, and dizzy that started this morning History of Present Illness 88-year-old male to the emergency department chief complaint of left-sided flank pain, nausea and episode of vomiting that started this morning. He was clammy and dizzy with the pain. He has a history of kidney stones with similar symptoms. Reports some hematuria. Review of Systems A 10 point review of systems is negative except as noted above. Medical and Surgical History: Reviewed and noted Social history: Lives at home Tobacco: Denies Physical Exam Vitals & Measurements T: 36.5 ?C(Oral) HR: 59(Monitored) RR: 18 BP: 105/58 SpO2: 92% HT: 167.64 cm WT: 79 kg BMI: 28.11 VITALS: I have reviewed the triage vital signs. GENERAL: Uncomfortable adult male holding left flank NEURO: Alert and oriented. Moves all extremities. Face is symmetric and expressive. EYES: PERRL. No scleral icterus or conjunctival injection. No discharge. HENT: Normocephalic, atraumatic. Hearing is grossly intact. Nares grossly patent and without discharge. Mucous membranes moist. NECK: No JVD. Patient moves neck without restriction. CARDIO: Rhythm regular. Normal rate. No murmur, rub, or gallop. Pulses equal bilaterally in the upper and lower extremity. No lower extremity edema. PULM: Lungs clear to auscultation in all anderson. No wheezes, rales, or rhonchi. No conversational dyspnea. No splinting, stridor, or accessory muscle use. GI/: Abdomen is soft and non-tender. Normoactive bowel sounds. Mild left-sided flank tenderness. EXTREMITIES: Symmetric muscle bulk. No joint swelling. No clubbing, cyanosis, or deformity. SKIN: Warm and dry. Normal turgor. No rash or lesions appreciated. PSYCH: Mood, affect, and interaction is appropriate to the setting. Medical Decision Making 88-year-old male with history of kidney stones to the emergency department chief complaint of left-sided flank pain consistent with previous kidney stones. Vital stable, the patient is afebrile. Toradol, Zofran, morphine for symptoms. Labs, urinalysis and CT scan are ordered for evaluation. Patient agrees with this plan. CBC and chemistry without significant abnormalities. His troponin is normal. EKG without acute findings. CT scan does show a 4 x 6 left UVJ stone. He rates his pain a 1 out of 10. He is able to tolerate oral intake. Normal kidney function. No infected stone. He is appropriate for outpatient urology follow-up. Houston, Zofran, fluids, Flomax are prescribed. Urine strainer. Urology referral given. Return precautions were discussed. All questions were answered. Patient is agree with this plan. Patient was discharged home. Assessment/Plan Ureteral colic (N23: Unspecified renal colic) Ordered: acetaminophen-hydrocod one, 1 tab(s), Oral, q6hr for pain for 3 day(s), 12 tab(s), Refill(s) 0, [facility], 167.6, cm, 04/13/23 10:07:00 EST, Height/Length Dosing, 79, kg, 04/13/23 10:07:00 EST, Weight Dosing Orders: ketorolac, 30 mg = 1 mL, Injection, IV Push, Once, Stop date 04/13/23 10:47:00 EST, STAT, Start date 04/13/23 10:47:00 EST, 04/13/23 10:47:00 EST morphine, 4 mg = 1 mL, Injection, IV Push, Once, Stop date 04/13/23 10:47:00 EST, STAT, Start date 04/13/23 10:47:00 EST, 04/13/23 10:47:00 EST ondansetron, 4 mg = 2 mL, Injection, IV Push, Once, Stop date 04/13/23 10:47:00 EST, STAT, Start date 04/13/23 10:47:00 EST, 04/13/23 10:47:00 EST ondansetron, 4 mg = 1 tab(s), Oral, q8hr, PRN Nausea/Vomiting, # 30 tab(s), Refills(s) 0, Pharmacy: [facility], 167.6, cm, 04/13/23 10:07:00 EST, Height/Length Dosing, 79, kg, 04/13/23 10:07:00 EST, Weight Dosing Sodium Chloride 0.9% intravenous solution, 1,000 mL, Soln-IV, IV, Once, Stop date 04/13/23 10:47:00 EST, STAT, Start date 04/13/23 10:47:00 EST, Infuse over 61, minute(s) tamsulosin, 0.4 mg = 1 cap(s), Oral, Daily, X 14 day(s), # 14 cap(s), Refills(s) 0, Pharmacy: [facility], 167.6, cm, 04/13/23 10:07:00 EST, Height/Length Dosing, 79, kg, 04/13/23 10:07:00 EST, Weight Dosing Basic Metabolic Panel CBC w/ Auto Diff CT Abdomen/Pelvis w/o Contrast ED Cardiac Monitoring eGFR Extra Blue Tube Hepatic Function Panel Lipase Level Saline Lock Insert Troponin 0 Hr. UA With Cult Reflex Medications Administered Given ketorolac 30 mg/mL Inj 1 mL, 30 mg, IV Push morphine 4 mg/mL Inj, 4 mg, IV Push NS 1000 ml Bolus, 1000 mL, IV ondansetron 4 mg/2 mL Inj, 4 mg, IV Push Disposition Plan Patient Discharge Condition Stable Discharge Disposition Home Discharge Prescription List Prescriptions Flomax 0.4 mg Cap, 0.4 mg= 1 cap(s), Oral, Daily Houston 325 mg-5 mg oral tablet, 1 tab(s), Oral, q6hr, PRN Zofran ODT 4 mg Tab-Dis, 4 mg= 1 tab(s), Oral, q8hr, PRN Follow-up With When Contact Information Ricardo JACKSON In 3 days 04/16/2023 EST (more content not included)... [facility] Comment on above: Result Comment: Elec tronically Signed By: Buddy Pleitez DO\.br\Date and Time Signed: 04/13/23 12:50 EST ED Patient Education Noteon 04-13-2023 ED Patient Education Note Urology Kidney Stones Kidney stones are solid, rock-like deposits that form inside of the kidneys. The kidneys are a pair of organs that make urine. A kidney stone may form in a kidney and move into other parts of the urinary tract, including the tubes that connect the kidneys to the bladder (ureters), the bladder, and the tube that carries urine out of the body (urethra). As the stone moves through these areas, it can cause intense pain and block the flow of urine. Kidney stones are created when high levels of certain minerals are found in the urine. The stones are usually passed out of the body through urination, but in some cases, medical treatment may be needed to remove them. What are the causes? Kidney stones may be caused by: ? A condition in which certain glands produce too much parathyroid hormone (primary hyperparathyroidism), which causes too much calcium buildup in the blood. ? A buildup of uric acid crystals in the bladder (hyperuricosuria). Uric acid is a chemical that the body produces when you eat certain foods. It usually leaves the body in the urine. ? Narrowing (stricture) of one or both of the ureters. ? A kidney blockage that is present at (congenital obstruction). ? Past surgery on the kidney or the ureters. What increases the risk? The following factors may make you more likely to develop this condition: ? Having had a kidney stone in the past. ? Having a family history of kidney stones. ? Not drinking enough water. ? Eating a diet that is high in protein, salt (sodium), or sugar. ? Being overweight or obese. What are the signs or symptoms? Symptoms of a kidney stone may include: ? Pain in the side of the abdomen, right below the ribs (flank pain). Pain usually spreads (radiates) to the groin. ? Needing to urinate often or urgently. ? Painful urination. ? Blood in the urine (hematuria). ? Nausea. ? Vomiting. ? Fever and chills. How is this diagnosed? This condition may be diagnosed based on: ? Your symptoms and medical history. ? A physical exam. ? Blood tests. ? Urine tests. These may be done before and after the stone passes out of your body through urination. ? Imaging tests, such as a CT scan, abdominal X-ray, or ultrasound. ? A procedure to examine the inside of the bladder (cystoscopy). How is this treated? Treatment for kidney stones depends on the size, location, and makeup of the stones. Kidney stones will often pass out of the body through urination. You may need to: ? Increase your fluid intake to help pass the stone. In some cases, you may be given fluids through an IV and may need to be monitored in the hospital. ? Take medicine for pain. ? Make changes in your diet to help prevent kidney stones from coming back. Sometimes, procedures are needed to remove a kidney stone. This may involve: ? A procedure to break up kidney stones using: ? A focused beam of light (laser therapy). ? Shock waves (extracorporeal shock wave lithotripsy). ? Surgery to remove kidney stones. This may be needed if you have severe pain or have stones that block your urinary tract. Follow these instructions at home: Medicines ? Take lixo-rgz-tbkanmc and prescription medicines only as told by your health care provider. ? Ask your health care provider if the medicine prescribed to you requires you to avoid driving or using heavy machinery. Eating and drinking ? Drink enough fluid to keep your urine pale yellow. You may be instructed to drink at least 8?10 glasses of water each day. This will help you pass the kidney stone. ? If directed, change your diet. This may include: ? Limiting how much sodium you eat. ? Eating more fruits and vegetables. ? Limiting how much animal protein you eat. Animal proteins include red meat, poultry, fish, and eggs. ? Eating a normal amount of calcium (1,000?1,300 mg per day). ? Follow instructions from your health care provider about eating or drinking restrictions. General instructions ? Collect urine samples as told by your health care provider. You may need to collect a urine sample: ? 24 hours after you pass the stone. ? 8?12 weeks after you pass the kidney stone, and every 6?12 months after that. ? Strain your urine every time you urinate, for as long as directed. Use the strainer that your health care provider recommends. ? Do not throw out the kidney stone after passing it. Keep the stone so it can be tested by your health care provider. Testing the makeup of your kidney stone may help prevent you from getting kidney stones in the future. ? Keep all follow-up visits. You may need follow-up X-rays or ultrasounds to make sure that your stone has passed. How is this prevented? To prevent another kidney stone: ? Drink enough fluid to keep your urine pale yellow. This is the best way to prevent kidney stones. ? Eat a healthy diet. Follow recommendations from (more content not included)... [facility] ED Patient Summaryon 024 ED Patient Summary [address] [address] Patient Discharge Instructions Person Information Name: ABHIJIT TAVAREZ Age: 88 Years Arrival Date: 04/13/2023 09:55:58 Discharge Diagnosis: Ureteral colic Primary Care Physician: [facility] (DO), CANDELARIA E Provider Information Primary Provider: Buddy Pleitez DO Advanced Science Education Professor:None The exam and treatment you received in the Emergency Department were for an urgent problem and are not intended as complete care. It is important that you follow up with a doctor, nurse practitioner, or physician?s rehab assistant for ongoing care. If your symptoms become worse or you do not improve as expected and you are unable to reach your usual health care provider, you should return to the Emergency Department. We are available 24 hours a day. ABHIJIT TAVAREZ has been given the following list of patient education materials, prescriptions and follow-up instructions: Follow-up Instructions: With: Address: When: Ricardo JACKSON [address], [address], [facility] [address] [place] [address] Business (1) In 3 days 04/16/2023 Comments: Call Dr for diagnosis based follow up With: Address: When: [facility], [address], [facility] [place] [address] Business (1) In 3 days 04/16/2023 Comments: Call the office of your primary care doctor to arrange for follow-up within the above-stated timeframe. Follow-up with your primary care doctor about this ED visit. You should review your labs, imaging, and diagnoses from this ED visit with your primary care physician. There are occasionally non-emergent findings that require additional follow-up after your ED visit. If you were prescribed medications you should discuss possible side-effects and drug interactions with your pharmacist. Call 911 or go to the nearest Emergency Department if you develop any new or worsening symptoms. Seek immediate medical attention if you develop: worsening abdominal pain, new or worsening nausea, new or worsening vomiting, new or worsening diarrhea, chest pain, shortness of breath, pain with urination, problems urinating, fever, chills, weakness, or any new or worsening symptoms. In the event that this physician does not participate in your insurance network, please consult with your insurance company to find a nearby participating provider. Patient Education Materials: Kidney Stones A MESSAGE TO ALL PATIENTS REGARDING OPIOIDS PRESCRIPTION OPIOIDS: WHAT YOU NEED TO KNOW Prescription opioids can be used to help relieve oavmrayg-dq-qcyude pain and are often prescribed following a surgery or injury, or for certain health conditions. These medications can be an important part of the treatment but also come with serious risks. It is important to work with your healthcare provider to make sure you are getting the safest, most effective care. WHAT ARE THE RISKS AND SIDE EFFECTS OF OPIOID USE? Prescription opioids carry serious risks of addiction and overdose, especially with prolonged use. An opioid overdose, often marked by slowed breathing, can cause sudden . The use of prescription opioids can have a number of side effects as well, even when taken as directed: ? Tolerance?meaning you might need to take more of the medication for the same pain relief ? Physical dependence?meaning you have symptoms of withdrawal when a medication is stopped ? Increased sensitivity to pain ? Constipation ? Nausea, vomiting, and dry mouth ? Sleepiness and dizziness ? Confusion ? Depression ? Low levels of testosterone that can result in lower sex drive, energy, and strength ? Itching and sweating RISKS ARE GREATER WITH: ? History of drug misuse, substance use disorder, or overdose ? Mental health conditions (such as depression or anxiety) ? Sleep apnea ? Older age (65 years and older) ? Avoid alcohol while taking prescription opioids. Also, unless specifically advised by your health care provider, medications to avoid include: ? Benzodiazepines (such as Xanax or Valium) ? Muscle relaxants (such as Soma or Flexeril) ? Hypnotics (such as Ambien or Lunesta) ? Other prescription opioids KNOW YOUR OPTIONS Talk to your health care provider about ways to manage your pain that don?t involve prescription opioids. Some of these options may actually work better and have fewer risks and side effects. Options may include: ? Pain relievers such as acetaminophen, ibuprofen, and naproxen ? Some medication that are also used for depression or seizures ? Physical therapy and exercise ? Cognitive behavioral therapy, a psychological, goal-directed approach, in which patients learn how to modify physical, behavioral, and emotional triggers of pain and stress. IF YOU ARE PRESCRIBED OPIOIDS FOR PAIN: ? Never take opioids in greater a (more content not included)... Normal [facility] HEMATOLOGYOrdered By: SYSTEM SYSTEM on 04-13-2023 Basophil Absolute 0.1 E9/L Normal 0.0 - 0.2 E9/L Rem isol Heme Basophils/100 WBC (Bld) 0.5 % Normal 0.0 - 2.0 % Remisol Heme Eos Absolute 0.0 E9/L Normal 0.0 - 0.5 E9/L Remisol Heme Eosinophils/100 WBC (Bld) 0.3 % Normal 0.0 - 8.0 % Remisol Heme Erythrocyte distribution width (RBC) [Ratio] 15.1 % High 10.9 - 14.2 % Remisol Heme Hematocrit (Bld) [Volume fraction] 43.0 % Normal 37.7 - 49.0 % Remisol Heme Hemoglobin (Bld) [Mass/Vol] 13.8 g/dL Normal 13.5 - 17.5 gm/dL Remisol Heme Lymph Absolute 1.1 E9/L Normal 1.0 - 4.0 E9/L Remiso l Heme Lymphocytes/100 WBC (Bld) 10.1 % Low 14.0 - 50.0 % Remisol Heme MCH (RBC) [Entitic mass] 27.8 pg Normal 27.0 - 34.0 pg Remisol Heme MCHC (RBC) [Mass/Vol] 32.4 g/dL Normal 31.4 - 36.0 gm/dL Remisol Heme MCV (RBC) [Entitic vol] 85.6 fL Normal 80.0 - 100.0 fL Remisol Heme Garden Absolute 0.6 E9/L Normal 0.2 - 1.0 E9/L Remisol Heme Monocytes/100 WBC (Bld) 5.3 % Normal 4.0 - 14.0 % Remisol Heme Neutro Absolute 9.3 E9/L High 2.0 - 7.5 E9/L Remis ol Heme Neutro Auto 83.8 % High 36.0 - 75.0 % Remisol He me Platelet 145.0 E9/L Low 150.0 - 500.0 E9/L Remisol Heme Platelet mean volume (Bld) [Entitic vol] 7.8 fL Normal 6.4 - 10.8 fL Remisol Heme RBC 5.0 E12/L Normal 4.3 - 5.9 E12/L Remisol H jennifer WBC 11.0 E9/L Normal 4.0 - 11.0 E9/L Remisol H jennifer Hep Func Panelon 04-13-2023 Albumin [Mass/Vol] 4.2 g/dL Normal 3.3-5.0 [facility] Comment on above: Performed By: #### 2 350643, [id number], 8432050, 8417476, 39719589, 1423789 ####[facility] [address] [place] [address] Albumin/Globulin [Mass ratio] 1.8 {ratio} Normal 1.1-2.2 [facility] Comment on above: Performed By: #### 2 089064, 66042499, 1667994, 5160154, 88435986, 0673196 ####[facility] [address] [place] [address] Alk Phos 35 Int._Unit/L Normal 21-98 [facility] Comment on above: Performed By: #### 2 555649, 48068591, 1255657, 0145785, 51953809, 4590888 ####[address] [place] [address] ALT 17 Int._Unit/L Normal 6-46 [facility] Comment on above: Performed By: #### 2 451656, 43275111, 1677416, 4220271, 59308429, 9937163 ####[facility] [address] [place] [address] AST 19 Int._Unit/L Normal 5-43 [facility] Comment on above: Performed By: #### 2 390106, 53917656, 5097709, 8939207, 56831468, 8010859 ####[facility] [address] [place] [address] Bili Direct 0.1 mg/dL Normal 0.0-0.4 [facility] Comment on above: Performed By: #### 2 097004, 80075802, 7911942, 0908981, 76012378, 4414700 ####[facility] [address] [place] [address] Bili Indirect 0.6 mg/dL Normal 0.1-0.9 [facility] Comment on above: Performed By: #### 2 471849, 63058495, 1330330, 9199695, 60563353, 0384466 ####[facility] [address] [place] [address] Bili Total 0.7 mg/dL Normal 0.0-1.1 [facility] Comment on above: Performed By: #### 2 994872, 11406266, 3206393, 9115012, 42129984, 5181621 ####[facility] [address] [place] [address] Globulin (S) [Mass/Vol] 2.4 g/dL Normal 1.4-4.0 [facility] Comment on above: Performed By: #### 2 720271, 48925420, 7731658, 6919912, 04742448, 2227806 ####[facility] [address] [place] [address] Protein [Mass/Vol] 6.6 g/dL Normal 6.0-7.8 [facility] Comment on above: Performed By: #### 2 262267, 59491844, 8906272, 3388957, 51070550, 3938928 ####[facility] [address] [place] [address] Lipase Levelon 04-13-2023 Lipase Lvl 32 unit/L Normal 13-58 [facility] Comment on above: Performed By: #### 2 201032, 21859254, 3345619, 3768003, 99970593, 5939508 ####[address] [place] [address] Medication Listson Medication Lists [id number] 30 [id number]#1.00 TIFF Normal [facility] Troponin 0 Hr.on 04-13-2023 Troponin 9.20 pg/mL Low 15.90-38.40 [facility] Comment on above: Result Comment: The 95% CI (Confidence Interval) PPV (Positive Predictive Value) for myocardial infarction in females is 38 pg/mL, in males 51 pg/mL. The results should be used in conjunction with clinical conditions of myocardial infarction. (Access High Sensitivity Troponin I Instructions For Use, Valeriy Appleton, October 2017) Performed By: #### 2 841559, 04803533, 5080855, 6063976, 75477834, 7339682 ####[facility] [address] [facility] [place] [address] UA With Cult Reflexon 2023 Bacteria LM Ql (Urine sed) TRACE Normal Trace [facility] Comment on above: Performed By: #### 1 0810127 ####[address] [address] Bilirubin Ql (U) Negative Normal Negative [facility] Comment on above: Performed By: #### 1 8678235 ####[address] [address] Clarity (U) CLEAR Normal Clear [facility] Comment on above: Performed By: #### 1 5213828 ####[address] [place] [address] Color (U) YELLOW Normal Yellow [facility] Comment on above: Performed By: #### 1 1820427 ####[facility] [address] [place] [address], [place] [address] Epithelial cells.squamous LM.HPF (Urine sed) [#/Area] 3-4 Normal 0-2 [facility] Comment on above: Performed By: #### 1 2902412 ####[facility] [address] [place] [address] Glucose Test strip (U) [Mass/Vol] Negative Normal Negative [facility] Comment on above: Performed By: #### 1 4667040 ####[facility] [address] [facility] [place] [address] Hemoglobin Ql (U) 2+ Abnormal Negative [facility] Comment on above: Performed By: #### 1 2594305 ####[facility] [address] [place] [address] Ketones (U) [Mass/Vol] Negative Normal Negative [facility] Comment on above: Performed By: #### 1 1225681 ####[address] [address] [place].plasma/Lith ium.RBC (Bld) [Mass ratio] 4-20 Normal 0-3 [facility] Comment on above: Performed By: #### 1 5800103 ####[address] [address] Mucus Ql (Urine sed) 2+ Normal [facility] Comment on above: Performed By: #### 1 4115038 ####[address] [address] Nitrite Ql (U) Negative Normal Negative [facility] Comment on above: Performed By: #### 1 7268358 ####[address] [address] pH (U) 6.0 [pH] Invalid Interpretation Code 5.0-9.0 [facility] Comment on above: Performed By: #### 1 6812954 ####[address] [address] Protein (U) [Mass/Vol] 1+ Abnormal Negative [facility] Comment on above: Performed By: #### 1 0224884 ####[address] [address] Specific gravity (U) [Rel density] >=1.030 Invalid Interpretation Code 1.005-1.030 [facility] Comment on above: Performed By: #### 1 0232547 ####[address] [address] Type of Urine collection method Clean Catch Normal [facility] Comment on above: Performed By: #### 1 9934524 ####[address] [address] Urobilinogen Qn (U) 0.2 {Negrita'U}/dL Normal 0.0-1.0 [facility] Comment on above: Performed By: #### 1 3806783 ####[address] [address] WBC Auto Ql (U) Negative Normal Negative [facility] Comment on above: Performed By: #### 1 4113876 ####[facility] [address] [place] [address] WBC LM.HPF (Urine sed) [#/Area] 0-5 Normal 0-5 [facility] Comment on above: Performed By: #### 1 2915518 ####[facility] [address] [place] [address] URINALYSISOrdered By: Lionel Hardwick on 04-13-2023 Bacteria LM Ql (Urine sed) Trace /HPF Normal Trace/HPF [facility] UA Auto SS Bilirubin Ql (U) Negative (04/13/23 10:40 AM) Normal Negative [facility] UA Auto SS Clarity (U) Clear (04/13/23 10:40 AM) Normal Clear [facility] UA Auto SS Color (U) Yellow (04/13/23 10:40 AM) Normal Yellow [facility] UA Auto SS Epithelial cells.squamous LM.HPF (Urine sed) [#/Area] 3-4 /HPF Normal 0-2/HPF [facility] UA Auto SS Glucose Test strip (U) [Mass/Vol] Negative (04/13/23 10:40 AM) Normal Negative [facility] UA Auto SS Hemoglobin Ql (U) 2+ *ABN* (04/13/23 10:40 AM) Invalid Interpretation Code Negative [facility] UA Auto SS Ketones (U) [Mass/Vol] Negative (04/13/23 10:40 AM) Normal Negative [facility] UA Auto SS [place].plasma/Lith ium.RBC (Bld) [Mass ratio] 4-20 /HPF Normal 0-3/HPF [facility] UA Auto SS Mucus Ql (Urine sed) 2+ (04/13/23 10:40 AM) Normal [facility] UA Auto SS Nitrite Ql (U) Negative (04/13/23 10:40 AM) Normal Negative [facility] UA Auto SS pH (U) 6.0 *NA* (04/13/23 10:40 AM) Invalid Interpretation Code 5.0 - 9.0 [facility] UA Auto SS Protein (U) [Mass/Vol] 1+ *ABN* (04/13/23 10:40 AM) Invalid Interpretation Code Negative [facility] UA Auto SS Specific gravity (U) [Rel density] >=1.030 *NA* (04/13/23 10:40 AM) Invalid Interpretation Code 1.005 - 1.030 [facility] UA Auto SS UA Spec Desc Clean Catch (04/13/23 10:40 AM) Normal [facility] UA Auto SS Urobilinogen Qn (U) 0.2036850 {Negrita'U}/dL Normal 0.0 - 1.0 EU/dL [facility] UA Auto SS WBC Auto Ql (U) Negative (04/13/23 10:40 AM) Normal Negative [facility] UA Auto SS WBC LM.HPF (Urine sed) [#/Area] 0-5 /HPF Normal 0-5/HPF [facility] UA Auto SS eGFRon 04-13-2023 eGFR 59 mL/min/1.73 m2 Normal >=59 [facility] Comment on above: Order Comment: Order added by Discern Expert. Performed By: #### 2 992767, 93936624, 0218793, 5121506, 91884632, 4173816 ####[facility] [address] [place] [address] Office Visit (Cardiology)on 11-18-2022 Follow-up visit Diagnoses/Problems Assessed Coronary artery disease without angina pectoris, unspecified vessel or lesion type, unspecified whether [place] or transplanted heart (414.00) (I25.10) Aortic stenosis (424.1) (I35.0) Bradycardia (427.89) (R00.1) Dyspnea (786.09) (R06.00) Hyperlipidemia (272.4) (E78.5) Never a smoker Sleep apnea (780.57) (G47.30) Asthma (493.90) (J45.909) Overweight with body mass index (BMI) of 27 to 27.9 in adult (278.02,V85.23) (E66.3,Z68.27) Ventricular ectopic beats (427.69) (I49.3) Paroxysmal SVT (supraventricular tachycardia) (427.0) (I47.1) PAC (premature atrial contraction) (427.61) (I49.1) Orders Aortic stenosis, Bradycardia, Coronary artery disease without angina pectoris, unspecified vessel or lesion type, unspecified whether [place] or transplanted heart, Dyspnea Start: Magnesium Oxide 400 MG Oral Tablet; TAKE 1 TABLET TWICE DAILY Bradycardia IO Holter Monitor up to 48 Hrs; Status:Complete; Done: [id number] Bradycardia, Dyspnea Start: Metoprolol Succinate ER 25 MG Oral Tablet Extended Release 24 Hour; TAKE 1 TABLET DAILY Overweight with body mass index (BMI) of 27 to 27.9 in adult Healthy Weight Tips; Status:Complete - Retrospective Authorization; Done: [id number] Some eating tips that can help you lose weight.; Status:Complete - Retrospective Authorization; Done: [id number] SocHx: Never a smoker Tobacco Use Screening; Status:Complete; Done: [id number] Unlinked Stop: hydroCHLOROthiazide 25 MG Oral Tablet Patient Instructions Please bring all medicines, vitamins, and herbal supplements with you when you come to the office. Prescriptions will not be filled unless you are compliant with your follow up appointments or have a follow up appointment scheduled as per instruction of your physician. Refills should be requested at the time of your visit. Follow up in 4 months The provider reviewed the following test(s) and result(s) with the patient: echocardiogram and laboratory tests Chief Complaint ABHIJIT TAVAREZ is being seen for a 4 month follow-up of. History of Present Illness Patient is here for earlier follow-up. He was seen recently by his family physician and complained some palpitation and shortness of breath. Patient underwent echocardiogram that showed basically moderate aortic stenosis with preserved LV systolic function and his echo was unchanged from before. He underwent Holter monitor which showed frequent ventricular and supraventricular ectopy including runs of supraventricular tachycardia. Patient has been on long-term diuretic therapy was given by his mixing technician for concern about volume overload. His recent laboratory data showed his potassium was 3.8. The patient describes intermittent lightheadedness but no dizziness or syncope. ASSESSMENT: 1. Coronary artery disease, prior percutaneous coronary intervention to the marginal, he denies chest pain. His last stress test 3 years ago was negative. Described functional class I 2., Frequent ventricular ectopy and supraventricular ectopy and runs of supraventricular tachycardia 3. Asthma and breath unchanged from before. 4. Moderate aortic stenosis based on his l recent echocardiogram 5. Mild obesity 6. Classic sleep apnea symptomatology 7. Hypertriglyceridemia 8. SVT RECOMMENDATIONS: 1. I advised the patient to stop his hydrochlorothiazide. Start magnesium oxide 400 mg twice daily and metoprolol ER 25 mg daily and advised to notify me change in cardiac status or symptoms 2. The patient was advised to lose weight and to exercise. 3. I advised him to repeat his Holter monitor in 30 days to see if medication changes will make an impact. If continue to have frequent ventricular ectopy will consider EP evaluation 4. The patient was advised to notify me any change in cardiac status or symptoms. 5. I advised him to discuss with his mixing technician the diagnosis of sleep apnea and consider outpatient sleep study 6. Follow-up in 9 months Surgical History Problems History of Ankle surgery History of Back surgery History of Colonoscopy History of Lithotripsy History of Percutaneous transluminal coronary angioplasty History of Transurethral resection of prostate Current Meds Medication NameInstruction Albuterol Sulfate HFA 108 (90 Base) MCG/ACT Inhalation Aerosol SolutionINHALE 1 PUFF EVERY 4 HOURS NEEDED. Aspirin 81 MG Oral Tablet Delayed ReleaseTAKE 1 TABLET DAILY. Eye Multivitamin/Lutein CAPSTAKE DIRECTED. Fish Oil 1200 MG Oral CapsuleTAKE DIRECTED. Fluocinonide 0.05 % External GelAPPLY TOPICALLY EVERY DAY NEEDED hydroCHLOROthiazide 25 MG Oral TabletTAKE 0.5 TABLET Daily metroNIDAZOLE 0.75 % External GelAPPLY TOPICALLY TO FACE EVERY DAY Nitroglycerin 0.4 MG Sublingual Tablet SublingualPLACE 1 TABLET UNDER THE TONGUE EVERY 5 MINUTES UP TO 3 DOSES NEEDED FOR CHEST PAIN. Rosuvastatin Calcium 40 MG Oral Tablettake 1 tablet by mouth at bedtime Allergies Medication AC (more content not included)... Normal [employer] Tobacco Screening.on 023 Adult depression screening assessment No [facility] y 250 DO Work Phone: Fall risk assessment a) No falls within the last year [facility] 250 DO Work Phone: Tobacco use status [facility] b) No [facility] y 250 DO Work Phone: Echocardiogramon 11-09-2022 Echocardiography [facility] [address] [place] [address], [address] [place] [address] TRANSTHORACIC ECHOCARDIOGRAM REPORT Patient Name: ABHIJIT TAVAREZ Reading Physician: [id number] Ivette Purcell MD Study Date: 11/09/2022 Referring Physician: IVETTE PURCELL MRN/PID: [id number] PCP: Candelaria Gusman Accession/Order#: [id number] Department Location: Merged [facility] Gisselle Fierro Date of : 1935 Fellow: Gender: M Nurse: Admit Date: Sampler Ovens: Caroline Chilel RDCS, RVT Height: 167.64 cm CC Report to: Weight: 81.19 kg Study Type: Echocardiogram BSA: 1.91 m2 Blood Pressure: 118 /60 mmHg Diagnosis/ICD: I35.0-Nonrheumatic aortic (valve) stenosis Indication: CAD, PTCA, 2/6 Systolic Murmur, Dyspnea, Hyperlipidemia, Overweight, LA, Asthma Procedure/CPT: Echo Complete w Full [id number] Study Detail: The following Echo studies were performed: 2D, M-Mode, Doppler and color flow. PHYSICIAN INTERPRETATION: Left Ventricle: Left ventricular systolic function is normal, with an estimated ejection fraction of 60%. There are no regional wall motion abnormalities. The left ventricular cavity size is normal. Spectral Doppler shows an impaired relaxation pattern of left ventricular diastolic filling. Mild LVH. Left Atrium: The left atrium is mildly dilated. Mildly dilated left atrium. Right Ventricle: The right ventricle is normal in size. There is normal right ventricular global systolic function. Right Atrium: The right atrium is normal in size. Aortic Valve: The aortic valve appears structurally normal. There is mild aortic valve regurgitation. The peak instantaneous gradient of the aortic valve is 47.6 mmHg. The mean gradient of the aortic valve is 25.0 mmHg. The aortic valve is calcified with appearance of aortic stenosis. Peak gradient measured at 48 mmHg. Mean gradient measured at 25 mmHg. Calculated aortic valve area is 1.16 cm???. This is consistent with moderate aortic stenosis. Mitral Valve: The mitral valve is mildly thickened. There is mild to moderate mitral valve regurgitation. Tricuspid Valve: The tricuspid valve is structurally normal. No evidence of tricuspid regurgitation. Pulmonic Valve: The pulmonic valve is structurally normal. There is no indication of pulmonic valve regurgitation. Pericardium: There is no pericardial effusion noted. Aorta: The aortic root is normal. CONCLUSIONS: 1. Left ventricular systolic function is normal with a 60% estimated ejection fraction. 2. Mild LVH. 3. Spectral Doppler shows an impaired relaxation pattern of left ventricular diastolic filling. 4. Mildly dilated left atrium. 5. Mild to moderate mitral valve regurgitation. 6. The aortic valve is calcified with appearance of aortic stenosis. Peak gradient measured at 48 mmHg. Mean gradient measured at 25 mmHg. Calculated aortic valve area is 1.16 cm???. This is consistent with moderate aortic stenosis. 7. Mild aortic valve regurgitation. 8. When compared to prior study LV systolic function appears better. QUANTITATIVE DATA SUMMARY: 2D MEASUREMENTS: Normal Ranges: Ao Root d: 2.90 cm (2.0-3.7cm) LAs: 4.60 cm (2.7-4.0cm) RVIDd: 3.10 cm (0.9-3.6cm) IVSd: 1.00 cm (0.6-1.1cm) LVPWd: 1.00 cm (0.6-1.1cm) LVIDd: 4.90 cm (3.9-5.9cm) LVIDs: 3.50 cm LV Mass Index: 92.3 g/m2 LV % FS 28.6 % LV SYSTOLIC FUNCTION BY 2D PLANIMETRY (MOD): Normal Ranges: EF-A4C View: 63.7 % (>=55%) LV DIASTOLIC FUNCTION: Normal Ranges: MV Peak E: 0.58 m/s (0.7-1.2 m/s) MV Peak A: 0.95 m/s (0.42-0.7 m/s) E/A Ratio: 0.61 (1.0-2.2) MV lateral e' 0.09 m/s MV medial e' 0.05 m/s E/e' Ratio: 6.60 (<8.0) MITRAL VALVE: Normal Ranges: MV Vmax: 1.03 m/s (<=1.3m/s) MV peak P.2 mmHg (<5mmHg) MV mean P.0 mmHg (<48mmHg) MITRAL INSUFFICIENCY: Normal Ranges: MR Vmax: 519.00 cm/s dP/dt: 1298 mmHg/s (>1200mmHg/sec) AORTIC VALVE: Normal Ranges: AoV Vmax: 3.45 m/s (<=1.7m/s) AoV Peak P.6 mmHg (<20mmHg) AoV Mean P.0 mmHg (1.7-11.5mmHg) LVOT Max Donn: 0.89 m/s (<=1.1m/s) AoV VTI: 75.30 cm (18-25cm) LVOT VTI: 22.30 cm LVOT Diameter: 2.40 cm (1.8-2.4cm) AoV Area, VTI: 1.34 cm2 (2.5-5.5cm2) AoV Area,Vmax: 1.16 cm2 (2.5-4.5cm2) AoV Dimensionless Index: 0.30 AORTIC INSUFFICIENCY: AI Vmax: 4.21 m/s AI Half-time: 609 msec AI Decel Rate: 209.00 cm/s2 PULMONIC VALVE: Normal Ranges: PV Max Donn: 0.7 m/s (0.6-0.9m/s) PV Max P.0 mmHg PIEDV: 1.70 m/s PADP: 14.6 mmHg [id number] Ivette Purcell MD Electronically signed on 11/09/2022 at 2:17:16 PM Final Normal [facility] [place] holter monitor recordingo n 10-31-2022 [place] holter monitor recording [facility] [place] [address] Holter Monitor Report Signed Patient: Abhijit Tavarez MR#: [id number] 91 : 1935 Acct:[id number] Age/Sex: 87 / M ADM Date: 10/25/22 Loc: Room: Type: [facility] Attending Dr: Candelaria Gusman DO Copies to: Candelaria Morales MD Ordering Provider: Candelaria Gusman DO Date of Service: 10/25/22 [place] holter monitor recording: Bradycardia ORDERING: Candelaria Gusman DO CLINICAL INFORMATION: Bradycardia. The patient underwent 24-hour Holter monitoring for a history and/or complaints of bradycardia. The following observations were made: 1. Rhythm is sinus with heart rates ranging between 46 and 100 beats per minute. The average heart rate was 69 beats per minute and the longest pause was 1.6 seconds. 2. There were 24,361 ventricular ectopic beats noted. These were predominantly isolated beats, although there were 186 couplets, 1 triplet, and one 4-beat run at a rate of 114 beats per minute. There were also frequent episodes of bigeminy or trigeminy. 3. There were 9056 supraventricular ectopic beats noted. These were isolated beats, although there were 36 couplets, and there were also 7 runs of SVT, ranging in length from 3 to 17 beats at rates up to 150 beats per minute. 4. During the recording, the patient had complaints of shortness of breath on 2 occasions. These were associated with ventricular ectopy, but there was no extreme of heart rate and no significant extremes involving the frequency or density of the ventricular arrhythmia. Correlation is suggested. Transcribed By: LESA 11/01/22 1429 Dictated By: Eric Phillips MD 10/31/22 1730 Signed By: 11/01/[address] [facility] Alanine Aminotransferaseon 0 10-21-2022 ALT [Catalytic activity/Vol] 24 U/L Normal 7-52 [facility] Comment on above: Performed By: #### B MP, AST, LIPID, ALT #### [address] Aspartate Amino Transferaseo n 10-21-2022 AST [Catalytic activity/Vol] 21 U/L Normal 13-39 [facility] Comment on above: Performed By: #### B MP, AST, LIPID, ALT #### [address] Basic Metabolic Panelon 10-05 Anion gap [Moles/Vol] 10.1 mmol/L Normal 6.0-15.0 [facility] Comment on above: Performed By: #### B MP, AST, LIPID, ALT #### [address] Calcium [Mass/Vol] 9.1 mg/dL Normal 8.6-10.3 [facility] Comment on above: Performed By: #### B MP, AST, LIPID, ALT #### [address] Chloride [Moles/Vol] 103 mmol/L Normal 98-107 [facility] Comment on above: Performed By: #### B MP, AST, LIPID, ALT #### [place] [id number] [place] CO2 [Moles/Vol] 31.7 mmol/L High 21.0-31.0 [facility] Comment on above: Performed By: #### B MP, AST, LIPID, ALT #### [facility] [address] Creatinine [Mass/Vol] 0.96 mg/dL Normal 0.70-1.30 [facility] Comment on above: Performed By: #### B MP, AST, LIPID, ALT #### [facility] [address] [place] [address] [place] GFR/1.73 sq M.predicted MDRD (S/P/Bld) [Vol rate/Area] mL/min/{1.73_m2} Normal [facility] Comment on above: Performed By: #### B MP, AST, LIPID, ALT #### [address] Glucose [Mass/Vol] 92 mg/dL Normal 70-100 [facility] Comment on above: Result Comment: [facility] Glucose Reference Range is dependent on time and content of last meal. Glucose of more than 200 mg/dL in a nonstressed, ambulatory subject supports the diagnosis of Diabetes Mellitus. ADA recommended reference range Performed By: #### B MP, AST, LIPID, ALT #### [facility] [address] [place] [address] [place] Potassium [Moles/Vol] 3.8 mmol/L Normal 3.5-5.1 [facility] Comment on above: Performed By: #### B MP, AST, LIPID, ALT #### [facility] [address] [place] [address] [place] Sodium [Moles/Vol] 141 mmol/L Normal 136-145 [facility] Comment on above: Performed By: #### B MP, AST, LIPID, ALT #### [facility] [address] [place] [address] [place] Urea nitrogen [Mass/Vol] 20 mg/dL Normal 7-25 [facility] Comment on above: Performed By: #### B MP, AST, LIPID, ALT #### [facility] [address] [place] [id number] [facility] Laboratory - Chemistry and C hemistry - challengeon 10-21-2022 Cholesterol [Mass/Vol] 130\S\130 below low threshold 140-200 -[facility] y 250 DO Work Phone: Comment on above: Chol less than 200 m g/dl low risk Chol 201-239 mg/dl borderline risk Chol 240 mg/dl and greater high risk Cholesterol in LDL [Mass/Vol] 64\S\64 Normal 0-100 [facility] y 250 DO Work Phone: Comment on above: LDL ATP III CLASSIFI CATION LDL less than 100 mg/dL Optimal LDL 100-129 mg/dL Near or above optimal LDL 130-159 mg/dL Borderline high LDL 160-189 mg/dL High LDL greater than 189 mg/dL Very high Lipid Panelon 10-21-2022 Cholesterol [Mass/Vol] 130 mg/dL Low 140-200 [facility] Comment on above: Result Comment: Chol less than 200 mg/dl low risk Chol 201-239 mg/dl borderline risk Chol 240 mg/dl and greater high risk Performed By: #### B MP, AST, LIPID, ALT #### [facility] [address] [place] [id number] [facility] Cholesterol in HDL [Mass/Vol] 30 mg/dL Normal 23-92 [facility] Comment on above: Result Comment: HDL CHOL ATP-III CLASSIFICATION Cardiovascular Risk HDL > or equal to 60 mg/dL LOW HDL < 40 mg/dL HIGH Performed By: #### B MP, AST, LIPID, ALT #### [facility] [address] Cholesterol.total/C holesterol in HDL [Mass ratio] 4.3 {ratio} Normal <5.0 [facility] Comment on above: Result Comment: PERF ORMED BY: [place] [address] PATHOLOGIST CORPORATE SAFETY MANAGER TRE CHUNG M.D. Performed By: #### B MP, AST, LIPID, ALT #### [facility] [address] LDL Cholesterol,Calcula stephy 64 mg/dL Normal 0-100 [facility] Comment on above: Result Comment: LDL ATP III CLASSIFICATION LDL less than 100 mg/dL Optimal LDL 100-129 mg/dL Near or above optimal LDL 130-159 mg/dL Borderline high LDL 160-189 mg/dL High LDL greater than 189 mg/dL Very high Performed By: #### B MP, AST, LIPID, ALT #### [facility] [address] Triglyceride w/Reflex 182 mg/dL High 0-149 [facility] Comment on above: Result Comment: TRIG ATP III CLASSIFICATION TRIG less than 150 mg/dL Normal TRIG 150-199 mg/dL Borderline high TRIG 200-500 mg/dL High TRIG greater than 500 mg/dL Very high Standard traceable to the Center for Disease Conrtrol and Prevention (CDC) test method. Performed By: #### B MP, AST, LIPID, ALT #### [facility] [address] VLDL CHOLESTEROL 36 mg/dL Normal [facility] Comment on above: Performed By: #### B MP, AST, LIPID, ALT #### [facility] [address] No Panel Informationon 10-21 > 60.[address] [facility] [employer] y 250 DO Work Phone: 10.1\S\10.1 Normal 6.0-15.0 [facility] [employer] y 250 DO Work Phone: 9.1\S\9.1 Normal 8.6-10.3 [facility] [employer] y 250 DO Work Phone: 31.7\S\31.7 above high threshold 21.0-31.0 [facility] [employer] y 250 DO Work Phone: 103\S\103 Normal 98-107 [facility] [employer] y 250 DO Work Phone: 3.8\S\3.8 Normal 3.5-5.1 [facility] y 250 DO Work Phone: 141\S\141 Normal 136-145 [facility] Eder brooks 250 DO Work Phone: 0.96\S\0.96 Normal 0.70-1.30 [facility] Eder brooks 250 DO Work Phone: 20\S\20 Normal 7-25 [facility] Eder brooks 250 DO Work Phone: 92\S\92 Normal 70-100 [facility] Eder brooks 250 DO Work Phone: Comment on above: Random Glucose Refer ence Range is dependent on time and content of last meal. Glucose of more than 200 mg/dL in a nonstressed, ambulatory subject supports the diagnosis of Diabetes Mellitus. ADA recommended reference range 21\S\21 Normal 13-39 [facility] Eder brooks 250 DO Work Phone: 24\S\24 Normal 7-52 [facility] Eder brooks 250 DO Work Phone: 4.3\S\4.3 Normal <5.0 [facility] Eder brooks 250 DO Work Phone: Comment on above: PERFORMED BY:[place] [address] [place] [phone] MEDICAL DIRECTORTRE CHUNG M.D. 36\S\[address] [facility] Eder brooks 250 DO Work Phone: 182\S\182 above high threshold 0-149 [facility] Eder brooks 250 DO Work Phone: Comment on above: TRIG ATP III CLASSIF ICATION TRIG less than 150 mg/dL Normal TRIG 150-199 mg/dL Borderline high TRIG 200-500 mg/dL High TRIG greater than 500 mg/dL Very high Standard traceable to the Center for Disease Conrtrol and Prevention (CDC) test method. 30\S\30 Normal 23-92 [facility] Eder brooks 250 DO Work Phone: Comment on above: HDL CHOL ATP-III CLA SSIFICATION Cardiovascular Risk HDL > or equal to 60 mg/dL LOW HDL < 40 mg/dL HIGH Office Visit (Cardiology)on 07-15-2022 Follow-up visit Diagnoses/Problems Assessed Coronary artery disease without angina pectoris, unspecified vessel or lesion type, unspecified whether emmonak or transplanted heart (414.00) (I25.10) Aortic stenosis (424.1) (I35.0) Hyperlipidemia (272.4) (E78.5) Dyspnea (786.09) (R06.00) Never a smoker Overweight with body mass index (BMI) of 29 to 29.9 in adult (278.02,V85.25) (E66.3,Z68.29) Sleep apnea (780.57) (G47.30) Asthma (493.90) (J45.909) Orders Aortic stenosis Echocardiogram; Status:Hold For - Scheduling,Retrospecti ve Authorization; Requested for:08Nov2022; Aortic stenosis, Coronary artery disease without angina pectoris, unspecified vessel or lesion type, unspecified whether emmonak or transplanted heart, Dyspnea Basic Metabolic Panel; Status:Active - Retrospective Authorization; Requested for:15Jul2022; Coronary artery disease without angina pectoris, unspecified vessel or lesion type, unspecified whether emmonak or transplanted heart Changed: From Aspirin EC 81 MG TBEC TAKE 1 TABLET DAILY To Aspirin 81 MG Oral Tablet Delayed Release TAKE 1 TABLET DAILY Renew: Metoprolol Tartrate 25 MG Oral Tablet; TAKE 1/2 (ONE-HALF) TABLET BY MOUTH TWICE DAILY Coronary artery disease without angina pectoris, unspecified vessel or lesion type, unspecified whether emmonak or transplanted heart, Hyperlipidemia ALT - Alanine Aminotransferase, Serum; Status:Active - Retrospective Authorization; Requested for:15Jul2022; AST; Status:Active - Retrospective Authorization; Requested for:15Jul2022; Lipid Panel; Status:Active - Retrospective Authorization; Requested for:15Jul2022; Overweight with body mass index (BMI) of 29 to 29.9 in adult Healthy Weight Tips; Status:Complete - Retrospective Authorization; Done: 15Jul2022 Some eating tips that can help you lose weight.; Status:Complete - Retrospective Authorization; Done: 15Jul2022 SocHx: Never a smoker Tobacco Use Screening; Status:Complete; Done: [id number] Patient Instructions Please bring all medicines, vitamins, and herbal supplements with you when you come to the office. Prescriptions will not be filled unless you are compliant with your follow up appointments or have a follow up appointment scheduled as per instruction of your physician. Refills should be requested at the time of your visit. Echo-9m Lab Follow up in 9 months Chief Complaint ABHIJIT TAVAREZ is being seen for a 9 month follow-up of. History of Present Illness Patient is here for follow-up and management for coronary artery disease with remote PCI to the marginal, hyperlipidemia, aortic stenosis, obesity and hypercaloric triglyceridemia./Time I saw him he denies any other complaint of chest pain, palpitation, lightheadedness, dizziness or syncope. He continues to be reasonably active. No recent lab available. ASSESSMENT: 1. Coronary artery disease, prior percutaneous coronary intervention to the marginal, he denies chest pain. His last stress test 3 years ago was negative. Described functional class I 2. Hyperlipidemia controlled. No recent labs 3. Symptoms of asthma and shortness of breath unchanged from before. Appears to be due to asthma 4. Moderate aortic stenosis based on his last echocardiogram 5. Mild obesity 6. Classic sleep apnea symptomatology 7. Hypertriglyceridemia RECOMMENDATIONS: 1. I advised the patient to continue present medical and continue to encourage him to take fish oil 2000 mg daily 2. The patient was advised to lose weight and to exercise. 3. I advised him to repeat his lab and echocardiogram 4. The patient was advised to notify me any change in cardiac status or symptoms. 5. I advised him to discuss with his mixing technician the diagnosis of sleep apnea and consider outpatient sleep study 6. Follow-up in 9 months Current Meds Medication NameInstruction Albuterol Sulfate HFA 108 (90 Base) MCG/ACT Inhalation Aerosol SolutionINHALE 1 PUFF EVERY 4 HOURS NEEDED. Aspirin EC 81 MG TBECTAKE 1 TABLET DAILY. Eye Multivitamin/Lutein CAPSTAKE DIRECTED. Fish Oil 1200 MG Oral CapsuleTAKE DIRECTED. Fluocinonide 0.05 % External GelAPPLY TOPICALLY EVERY DAY NEEDED hydroCHLOROthiazide 25 MG Oral TabletTAKE 0.5 TABLET Daily Metoprolol Tartrate 25 MG Oral TabletTAKE 1/2 (ONE-HALF) TABLET BY MOUTH TWICE DAILY metroNIDAZOLE 0.75 % External GelAPPLY TOPICALLY TO FACE EVERY DAY Nitroglycerin 0.4 MG Sublingual Tablet SublingualPLACE 1 TABLET UNDER THE TONGUE EVERY 5 MINUTES UP TO 3 DOSES NEEDED FOR CHEST PAIN. Rosuvastatin Calcium 40 MG Oral TabletTAKE 1 TABLET Bedtime Allergies Medication VENKATA Inhibitors Cough; Recorded By: Jeri Butler; 01/06/2021 8:15:31 AM Penicillins Swelling; Recorded By: Jeri Butler; 01/06/2021 8:15:31 AM Social History Problems Consumes alcohol (V49.89) (Z78.9) Daily caffeine consumption, 2-3 servings a day Never a smoker No illicit drug use Review of Systems Constitutional: not feeling tired. Cardiovascula (more content not included)... Normal [employer] Tobacco Screening.on 023 Adult depression screening assessment No [facility] y 250 DO Work Phone: Fall risk assessment a) No falls within the last year [facility] y 250 DO Work Phone: Tobacco use status [facility] b) No [facility] y 250 DO Work Phone: Tobacco Screening.on 022 Adult depression screening assessment No [facility] y 250 DO Work Phone: Fall risk assessment a) No falls within the last year [facility] y 250 DO Work Phone: Tobacco use status [facility] b) No [facility] y 250 DO Work Phone: COVID Quick Testingon 2021 Result Negative [facility] Other Tobacco Screening.on 021 Fall risk assessment a) No falls within the last year [facility] y 250 DO Work Phone: Tobacco use status [facility] b) No [facility] y 250 DO Work Phone: SARS-CoV-2 (COVID-19) PCRon 09-29-2019 COVID-19 PCR Not Detected Normal Not Detected [facility] Comment on above: Order Comment: Edilia Suresh Result Comment: Perf ormed In House Performed By: #### [id number] #### [facility] (DEFAULT) [address] [place] [address] XR KUB 1 VIEWon 09-21-2018 XR KUB 1 VIEW Patient: RHONDA TAVAREZ Exam Date: 09/21/2018 : 1935 Gender:M Ordering : DR JEFFREY MCKEON . Admission #: [id number] Family : Order #: [id number] CLICK HERE TO VIEW EXAM RADIOLOGY REPORT PROCEDURE: RADIOGRAPH KUB 1 VIEW COMPARISON: None. INDICATIONS: Left kidney stone FINDINGS: KIDNEY/URETER - RIGHT: No definite renal or ureteral stones. KIDNEY/URETER - LEFT: No definite renal or ureteral stones. PELVIS: No visible ureteral calcifications. BOWEL: No abnormal dilation or deviation. BONES: No acute abnormality. OTHER: Negative. No abnormal gaseous collections. CONCLUSION: 1. Limited examination due to dense overlying bowel content. 2. No appreciable urinary tract calculi. Dictated by: Artem Reyes M.D. on 09/21/2018 at 13:01 Approved by: Artem Reyes M.D. on 09/21/2018 at 13:03 Normal [facility] CBC AUTO DIFFon 09-18-2018 Basophils (Bld) [#/Vol] 0.0 103/ul Normal 0.0-0.1 [facility] Comment on above: Performed By: #### C BC #### [facility] [address] [place], [place] [address] Jose Elias Phylicia Basophils/100 WBC (Bld) 0.8 % Normal 0.2-2.0 [facility] Comment on above: Performed By: #### C BC #### [facility] [address] [place], [place] [address] Jose Elias Phylicia Eosinophils (Bld) [#/Vol] 0.2 103/ul Normal 0.0-0.7 [facility] Comment on above: Performed By: #### C BC #### [facility] [address] [place], [place] [address] Jose Elias Phylicia Eosinophils/100 WBC (Bld) 3.8 % Normal 0.9-7.0 [facility] Comment on above: Performed By: #### C BC #### [facility] [address] [place] [address] Jose Elias [place] Erythrocyte distribution width (RBC) [Ratio] 13.5 % Normal 11.0-15.0 [facility] Comment on above: Performed By: #### C BC #### [facility] [address] [place] [address] Jose Elias Phylicia Hematocrit (Bld) [Volume fraction] 41.2 % Critically low 42.0-54.0 [facility] Comment on above: Performed By: #### C BC #### [facility] [address] [place] [address] Jose Elias Phylicia Hemoglobin (Bld) [Mass/Vol] 13.4 g/dL Critically low 14.0-18.0 [facility] Comment on above: Performed By: #### C BC #### [facility] [address] [place] [address] Jose Elias Phylicia IG # 0.01 10e3/ul Normal 0.00-0.03 [facility] Comment on above: Performed By: #### C BC #### [facility] [address] [place] [address] Jose Eliascindi Whatley IG % 0.2 % Normal 0.0-0.5 [facility] Comment on above: Performed By: #### C BC #### [facility] [address] [place] [address] Jose Elias Phylicia Lymphocytes (Bld) [#/Vol] 1.4 103/ul Normal 1.2-3.8 [facility] Comment on above: Performed By: #### C BC #### [facility] [address] [place], [place] [phone] Jose Elias Villalobosen Lymphocytes/100 WBC (Bld) 28.5 % Normal 20.5-60.0 [facility] Comment on above: Performed By: #### C BC #### [facility] [address] [place], [place] [id number] Jose Eliascindi [place] MANUAL DIFF REQ NO Normal [facility] Comment on above: Performed By: #### C BC #### [facility] [address] [place], [place] [address] Jose Elias Phylicia MCH (RBC) [Entitic mass] 28.7 pg Normal 25.9-34.0 [facility] Comment on above: Performed By: #### C BC #### [facility] [address] [place], [place] [address] Jose Elias Phylicia MCHC (RBC) [Mass/Vol] 32.5 g/dL Normal 29.9-35.2 [facility] Comment on above: Performed By: #### C BC #### [facility] [address] [place], [place] [address] Jose Elias Phylicia MCV (RBC) [Entitic vol] 88.2 fL Normal 80.0-94.0 [facility] Comment on above: Performed By: #### C BC #### [facility] [address] [place] [id number] Jose Elias Phylicia Monocytes (Bld) [#/Vol] 0.4 103/ul Normal 0.3-0.8 [facility] Comment on above: Performed By: #### C BC #### [facility] [address] [place], [place] [address] Jose Elias Phylicia Monocytes/100 WBC (Bld) 8.9 % Normal 1.7-12.0 [facility] Comment on above: Performed By: #### C BC #### [facility] [address] [place], [place] [address] Jose Elias Phylicia Neutrophils (Bld) [#/Vol] 2.9 103/ul Normal 1.4-6.5 [facility] Comment on above: Performed By: #### C BC #### [facility] [address] [place], [place] [address] Jose Elias Phylicia Neutrophils/100 WBC (Bld) 57.8 % Normal 43.0-75.0 [facility] Comment on above: Performed By: #### C BC #### [facility] [address] [place], [place] [address] Jose Elias Phylicia Platelet mean volume (Bld) [Entitic vol] 9.6 fL Normal 9.5-13.5 [facility] Comment on above: Performed By: #### C BC #### [facility] [address] [place], [place] [phone] Jose Elias Phylicia Platelets (Bld) [#/Vol] 174 103/ul Normal 150-450 [facility] Comment on above: Performed By: #### C BC #### [facility] [address] [place], [place] [phone] Jose Elias Phylicia RBC (Bld) [#/Vol] 4.67 106/ul Critically low 4.70-6.10 [facility] Comment on above: Performed By: #### C BC #### [facility] [address] [place], [place] [phone] Jose Elias Phylicia WBC (Bld) [#/Vol] 4.9 103/ul Normal 4.0-11.0 [facility] Comment on above: Performed By: #### C BC #### [facility] [address] [place], [place] [phone] Jose Elias Phylicia PROF CHEM 8 (BAS METB)on Anion gap [Moles/Vol] 12.0 mmol/L Normal [facility] Comment on above: Performed By: #### B MP #### [facility] [address] [place], [place] [phone] Jose Elias Phylicia Calcium [Mass/Vol] 9.1 mg/dL Normal 8.4-10.2 [facility] Comment on above: Performed By: #### B MP #### [facility] [address] [place], [place] [phone] Jose Elias Phylicia Chloride [Moles/Vol] 104 mmol/L Normal 98-107 [facility] Comment on above: Performed By: #### B MP #### [facility] [address] [place], [place] [address] Jose Elias Phylicia CO2 [Moles/Vol] 28.7 mmol/L Normal 22.0-30.0 [facility] Comment on above: Performed By: #### B MP #### [facility] [address] [place], [place] [address] Jose Elias Phylicia Creatinine [Mass/Vol] 1.02 mg/dL Normal 0.66-1.25 [facility] Comment on above: Performed By: #### B MP #### [facility] [address] [place] [id number] Jose Elias Phylicia EGFR-AF BULGARIAN >60 Normal >=60 [facility] Comment on above: Performed By: #### B MP #### [facility] [address] [place] [id number] Jose Elias Phylicia EGFR-NON AF BULGARIAN >60 Normal >=60 [facility] Comment on above: Performed By: #### B MP #### [facility] [address] [place] [address] Jose Elias Phylicia Glucose [Mass/Vol] 118 mg/dL Critically high 74-106 [facility] Comment on above: Performed By: #### B MP #### [facility] [address] [place] [address] Jose Elias Phylicia Potassium [Moles/Vol] 3.7 mmol/L Normal 3.4-5.0 [facility] Comment on above: Performed By: #### B MP #### [facility] [address] [place] [address] Jose Elias Phylicia Sodium [Moles/Vol] 141 mmol/L Normal 137-145 [facility] Comment on above: Performed By: #### B MP #### [facility] [address] [place] [address] Jose Elias Phylicia Urea nitrogen [Mass/Vol] 20.0 mg/dL Normal 9.0-20.0 [facility] Comment on above: Performed By: #### B MP #### [facility] [address] [place] [address] Jose Elias Phylicia Urea nitrogen/Creatinine [Mass ratio] 19.6 mg/mg Normal [facility] Comment on above: Performed By: #### B MP #### [facility] [address] [place], [place] [phone] Jose Eliascindi Villalobosen PROTIMEon 09-18-2018 INR Coag (PPP) [Relative time] 1.03 {INR} Normal [facility] Comment on above: Performed By: #### P T, PTT #### [facility] [address] [place], [place] [address] Jose Elias Phylicia PT Coag (PPP) [Time] 10.7 s Normal 9.0-11.6 [facility] Comment on above: Performed By: #### P T, PTT #### [facility] [address] [place] [address] Jose Elias Phylicia PT Coag (PPP) [Time] SEE BELOW Normal [facility] Comment on above: Result Comment: OTIS RED INR: 2.0 - 3.0 CONDITIONS NOT LISTED BELOW 2.5 - 3.5 FOR PROSTHETIC HEART VALVE REPLACEMENT 2.5 - 3.5 RECURRENT THROMBOSIS Performed By: #### P T, PTT #### [facility] [address] [place] [address] Jose Elias Phylicia PT Coag (PPP) [Time] PLEASE NOTE: NORMAL RANGE CHANGE 11-22-2013 DUE TO REAGENT LOT CHANGE Normal [facility] Comment on above: Performed By: #### P T, PTT #### [facility] [address] [place] [address] Jose Elias Phylicia PTTon 09-18-2018 aPTT Coag (Bld) [Time] 24.9 s Normal 22.3-36.2 [facility] Comment on above: Performed By: #### P T, PTT #### [facility] [address] [place] [address] Jose Elias Phylicia aPTT Coag (Bld) [Time] PLEASE NOTE: NORMAL RANGE CHANGE 01-29-2015 DUE TO REAGENT LOT CHANGE Normal [facility] Comment on above: Performed By: #### P T, PTT #### [facility] [address] [place] [address] Jose Elias Phylicia ALT (SGPT)on 03-16-2017 Alanine aminotransferase (ALT) 34 U/L Normal [facility] Comment on above: Performed By: #### 1 [id number] ####[facility] [address] [place] [address] Performed By: #### 1 [id number] ####[facility] Cdn[address] [place] [address] Comprehensive Metabolic Pane kwame 03-16-2017 Albumin 4.5 g/dL Normal 3.4-5.0 [facility] Comment on above: Performed By: #### 1 [id number] ####[facility] [address]an[address] [place] [address] Albumin/Globulin Ratio 1.5 {ratio} Normal 0.9-2.4 [facility] Comment on above: Performed By: #### 1 [id number] ####[facility] Tla[address] [place] [address] Alkaline phosphatase (ALP) 21 U/L Low 45-117 [facility] Comment on above: Performed By: #### 1 [id number] ####[facility] R[address] [place] [address] Anion gap 13 mmol/L Normal 10-20 [facility] Comment on above: Performed By: #### 1 [id number] ####[facility] [address] [place] [address] Performed By: #### 1 [id number] ####[facility] [address]md[address] [place] [address] Aspartate aminotransferase (AST) 38 U/L Normal 13-39 [facility] Comment on above: Performed By: #### 1 [id number] ####[facility] [address] [place] [address] Performed By: #### 1 [id number] ####[facility] [address] [place] [address] Bilirubin (total) 0.9 mg/dL Normal 0.0-1.2 [facility] Comment on above: Performed By: #### 1 [id number] ####[facility] [id number] [place] [address] BUN/Creatinine Ratio 17 mg/mg Normal 5-25 [facility] Comment on above: Performed By: #### 1 [id number] ####[facility] [id number] [place] [address] Calcium 9.7 mg/dL Normal 8.6-10.3 [facility] Comment on above: Performed By: #### 1 [id number] ####[facility] [id number] [place] [address] Chloride 104 mmol/L Normal 98-107 [facility] Comment on above: Performed By: #### 1 [id number] ####[facility] [id number] [place] [address] Performed By: #### 1 [id number] ####[facility] [id number] [place] [address] eGFR (MDRD) mL/min/{1.73_m2} Normal [facility] Comment on above: Result Comment: Inte rpretation for Chronic Kidney Disease:Stages 1&2 >60 Healthy or potential kidney damage.Mild decrease of GFR.Stage 3 30-59 Moderate decrease of GFR.Stage 4 15-29 Severe decrease of GFR.Stage 5 <15 Kidney failure or on dialysis. Performed By: #### 1 [id number] ####[facility] [address] [place] [address] Performed By: #### 1 [id number] ####[facility] [id number] [place] [address] Glucose mass conc 80 mg/dL Normal 70-100 [facility] Comment on above: Performed By: #### 1 [id number] ####[facility] [address] [place] [address] Protein 7.5 g/dL Normal 6.4-8.2 [facility] Comment on above: Performed By: #### 1 [id number] ####[facility] [id number] [place] [address] Sodium 140 mmol/L Normal 136-145 [facility] Healthcare Comment on above: Performed By: #### 1 [id number] ####[facility] [address] [place] [address] Performed By: #### 1 [id number] ####[facility] [address] [place] [address] Urea nitrogen 19 mg/dL Normal 6-23 [facility] Healthcare Comment on above: Performed By: #### 1 [id number] ####[facility] [address] [place] [address] Performed By: #### 1 [id number] ####[facility] [address] [place] [address] Creatinineon 03-16-2017 Creatinine 1.12 mg/dL Normal 0.50-1.30 [facility] Comment on above: Performed By: #### 1 [id number] ####[facility] [address] [place] [address] Performed By: #### 1 [id number] ####[facility] [id number] [place] [address] Electrolyte Panelon 03-16-19 18 Bicarbonate (HCO3) 27 mmol/L Normal 21-32 [facility] Comment on above: Performed By: #### 1 [id number] ####[facility] [address] [place] [address] Performed By: #### 1 [id number] ####[facility] [id number] [place] [address] Potassium molar conc 4.1 mmol/L Normal 3.5-5.1 [facility] Healthcare Comment on above: Performed By: #### 1 [id number] ####[facility] [address] [place] [address] Performed By: #### 1 [id number] ####[facility] [id number] [place] [address] Lipid Panelon 03-16-2017 Cholesterol 191 mg/dL Normal <200 [facility] Comment on above: Performed By: #### 1 [id number] ####[facility] [address] [place] [address] Cholesterol in VLDL mass conc 34 mg/dL Abnormal <30 [facility] Comment on above: Performed By: #### 1 [id number] ####[facility] [id number] [place] [address] Cholesterol to HDL Ratio 6.2 {ratio} Normal [facility] Comment on above: Performed By: #### 1 [id number] ####[facility] [address] [place] [facility] [place] [address] HDL Cholesterol 31 mg/dL Abnormal [facility] Comment on above: Result Comment: Norm al Mod Risk High Risk5-9 >48 42-48 <4210- 14 >45 40-45 <4015-19 >38 34-38 <34Adult >39 Performed By: #### 1 [id number] ####[facility] [address] [place] [address] LDL Cholesterol 126 mg/dL Normal <130 [facility] Comment on above: Performed By: #### 1 [id number] ####[facility] [address] [place] [address] Triglyceride 169 mg/dL Abnormal <150 [facility] Comment on above: Result Comment: 150- 199 Borderline [id number] High>500 Very High Performed By: #### 1 [id number] ####[facility] [address] [place] [address] Vital Signs Date Time Vital Sign Value Performing Clinician Facility 05-06-2023 09:18-0500 Blood Pressure Location Jeffrey MCKEON [facility] 05-06-2023 09:18-0500 Diastolic blood pressure 81 mm[Hg] Jeffrey MCKEON [facility] 05-06-2023 09:18-0500 Heart rate 68 /min Jeffrey MCKEON [facility] 05-06-2023 09:18-0500 Respiratory rate 16 /min Jeffrey MCKEON [facility] 05-06-2023 09:18-0500 Systolic blood pressure 117 mm[Hg] Jeffrey MCKEON [facility] 04-13-2023 12:42-0500 Diastolic blood pressure 67 mm[Hg] Buddy Pleitez [facility] 04-13-2023 12:42-0500 Heart rate 67 /min Buddy Maik [facility] 04-13-2023 12:42-0500 Mean blood pressure 88 mm[Hg] Buddy Maik [facility] 04-13-2023 12:42-0500 Respiratory rate 8 /min Buddy Maik [facility] 04-13-2023 12:42-0500 SaO2% (BldA) [Mass fraction] 95 % Buddy Maik [facility] 04-13-2023 12:42-0500 Systolic blood pressure 129 mm[Hg] Buddy Maik [facility] 04-13-2023 12:00-0500 Diastolic blood pressure 63 mm[Hg] Buddy Maik [facility] 04-13-2023 12:00-0500 Heart rate 66 /min Buddy Maik [facility] 04-13-2023 12:00-0500 Mean blood pressure 83 mm[Hg] Buddy Maik [facility] 04-13-2023 12:00-0500 Respiratory rate 23 /min Buddy Maik [facility] 04-13-2023 12:00-0500 SaO2% (BldA) [Mass fraction] 99 % Buddy Maik [facility] 04-13-2023 12:00-0500 Systolic blood pressure 124 mm[Hg] Buddy Maik [facility] 04-13-2023 11:22-0500 Heart rate 59 /min Buddy Maik [facility] 04-13-2023 11:22-0500 SaO2% (BldA) [Mass fraction] 92 % Buddy Maik [facility] 04-13-2023 11:00-0500 Diastolic blood pressure 64 mm[Hg] Buddy Pleitez [facility] 04-13-2023 11:00-0500 Respiratory rate 15 /min Buddy Pleitez [facility] 04-13-2023 11:00-0500 Systolic blood pressure 120 mm[Hg] Buddy Pleitez [facility] 04-13-2023 10:30-0500 Respiratory rate 18 /min Buddy Pleitez [facility] 04-13-2023 10:01-0500 Body temperature 97.7 [degF] Buddy Pleitez [facility] 04-13-2023 10:01-0500 Heart rate 57 /min Buddy Pleitez [facility] 04-13-2023 10:01-0500 Respiratory rate 18 /min Buddy Pleitez [facility] 03-21-2023 14:30-0500 Body height 165.1 cm Desirae Ricardo Other [employer] [facility] [employer] Other 03-21-2023 14:30-0500 Body mass index (BMI) [Ratio] 29.12 kg/m2 Desirae Ricardo Other [employer] Other 03-21-2023 14:30-0500 Body temperature 97.4 [degF] Desirae Ricardo Other [employer] Other 03-21-2023 14:30-0500 Body weight 79.38 kg Desirae Ricardo Other [employer] Other 03-21-2023 14:30-0500 Diastolic blood pressure 82 mm[Hg] Desirae Ricardo Other [employer] Other 03-21-2023 14:30-0500 Respiratory rate 20 /min Desirae Ricardo Other [employer] Other 03-21-2023 14:30-0500 SaO2% (BldA) [Mass fraction] 95 % Desirae Ricardo Other [employer] Other 03-21-2023 14:30-0500 Systolic blood pressure 142 mm[Hg] Desirae Ricardo Other [employer] Other 03-08-2023 14:10-0500 Body height 167.6 cm Ivette Purcell MD Work Phone: [facility] 03-08-2023 14:10-0500 Body mass index (BMI) [Ratio] 28.41 kg/m2 Ivette Purcell MD Work Phone: [facility] 03-08-2023 14:10-0500 Body weight 79.83 kg Ivette Purcell MD Work Phone: [facility] 03-08-2023 14:10-0500 Diastolic blood pressure 74 mm[Hg] Ivette Purcell MD Work Phone: [facility] 03-08-2023 14:10-0500 Heart rate 60 /min Ivette Purcell MD Work Phone: [facility] 03-08-2023 14:10-0500 Systolic blood pressure 134 mm[Hg] Ivette Purcell MD Work Phone: [facility] 11-18-2022 13:46-0400 Body height 167.64 cm Candelaria Gusman Work Phone: [address] Work Phone: 11-18-2022 13:46-0400 Body mass index (BMI) [Ratio] 27.6 kg/m2 Candelaria E Mast Work Phone: [facility] 250 DO Work Phone: 11-18-2022 13:46-0400 Body surface area Derived from formula 1.87 m2 Candelaria E Mast Work Phone: [facility] 250 DO Work Phone: 11-18-2022 13:46-0400 Body weight 77.57 kg Candelaria E Mast Work Phone: [facility] 250 DO Work Phone: 11-18-2022 13:46-0400 Diastolic blood pressure 60 mm[Hg] Candelaria E Mast Work Phone: [facility] 250 DO Work Phone: 11-18-2022 13:46-0400 Heart rate 60 /min Candelaria E Mast Work Phone: [facility] 250 DO Work Phone: 11-18-2022 13:46-0400 Systolic blood pressure 140 mm[Hg] Candelaria E Mast Work Phone: [facility] 250 DO Work Phone: 10-21-2022 09:01-0400 Body height 167.64 cm Candelaria E Mast Work Phone: [facility] 250 DO Work Phone: 10-21-2022 09:01-0400 Body mass index (BMI) [Ratio] 27.76 kg/m2 Candelaria E Mast Work Phone: [facility] 250 DO Work Phone: 10-21-2022 09:01-0400 Body surface area Derived from formula 1.88 m2 Candelaria E Mast Work Phone: [facility] [employer] 250 DO Work Phone: 10-21-2022 09:01-0400 Body weight 78.02 kg Candelaria E Mast Work Phone: [facility] [employer] 250 DO Work Phone: 10-21-2022 09:01-0400 Diastolic blood pressure 60 mm[Hg] Candelaria E Mast Work Phone: [facility] [employer] 250 DO Work Phone: 10-21-2022 09:01-0400 Heart rate 67 /min Candelaria E Mast Work Phone: [facility] [employer] 250 DO Work Phone: 10-21-2022 09:01-0400 Systolic blood pressure 128 mm[Hg] Candelaria E Mast Work Phone: [facility] [employer] 250 DO Work Phone: 10-12-2022 16:45-0400 Body height 165.1 cm Candelaria Mast Other [employer] Other 10-12-2022 16:45-0400 Body mass index (BMI) [Ratio] 29.07 kg/m2 Candelaria Mast Other [employer] Other 10-12-2022 16:45-0400 Body temperature 97.4 [degF] Candelaria Mast Other [employer] Other 10-12-2022 16:45-0400 Body weight 79.24 kg Candelaria Mast Other [employer] Other 10-12-2022 16:45-0400 Diastolic blood pressure 70 mm[Hg] Candelaria Mast Other [facility] [employer] Other 10-12-2022 16:45-0400 Respiratory rate 20 /min Candelaria Mast Other [employer] Other 10-12-2022 16:45-0400 SaO2% (BldA) [Mass fraction] 97 % Candelaria Mast Other [employer] Other 10-12-2022 16:45-0400 Systolic blood pressure 150 mm[Hg] Candelaria Mast Other [employer] Other 07-15-2022 13:42-0400 Body height 167.64 cm Candelaria E Mast Work Phone: [facility] [employer] 250 DO Work Phone: 07-15-2022 13:42-0400 Body mass index (BMI) [Ratio] 28.89 kg/m2 Candelaria E Mast Work Phone: [facility] [employer] 250 DO Work Phone: 07-15-2022 13:42-0400 Body surface area Derived from formula 1.91 m2 Candelaria E Mast Work Phone: [facility] [employer] 250 DO Work Phone: 07-15-2022 13:42-0400 Body weight 81.19 kg Candelaria E Mast Work Phone: [facility] 250 DO Work Phone: 07-15-2022 13:42-0400 Diastolic blood pressure 68 mm[Hg] Candelaria E Mast Work Phone: [facility] 250 DO Work Phone: 07-15-2022 13:42-0400 Heart rate 64 /min Candelaria E Mast Work Phone: [facility] [employer] 250 DO Work Phone: 07-15-2022 13:42-0400 Systolic blood pressure 122 mm[Hg] Candelaria Johnson Mast Work Phone: [facility] [employer] 250 DO Work Phone: 03-17-2022 10:30-0500 Body height 165.1 cm Antonioer Jayant Other [employer] Other 03-17-2022 10:30-0500 Body temperature 96.4 [degF] Christopher Jayant Other [employer] Other 03-17-2022 10:30-0500 Diastolic blood pressure 73 mm[Hg] Christjenniferer Jayant Other [employer] Other 03-17-2022 10:30-0500 Respiratory rate 20 /min Christopher Jayant Other [employer] Other 03-17-2022 10:30-0500 SaO2% (BldA) [Mass fraction] 96 % Christopher Jayant Other [employer] Other 03-17-2022 10:30-0500 Systolic blood pressure 137 mm[Hg] Christjenniferer Jayant Other [employer] Other 12-09-2021 10:30-0400 Body height 165.1 cm Christopher Jayant Other [employer] Other 12-09-2021 10:30-0400 Body mass index (BMI) [Ratio] 29.45 kg/m2 Christopher Jayant Other [employer] Other 12-09-2021 10:30-0400 Body temperature 97.2 [degF] Da Saba Other [employer] Other 12-09-2021 10:30-0400 Body weight 80.29 kg Da Hannano Other [employer] Other 12-09-2021 10:30-0400 Diastolic blood pressure 70 mm[Hg] Da Hannano Other [employer] Other 12-09-2021 10:30-0400 Respiratory rate 20 /min Da Hannano Other [employer] Other 12-09-2021 10:30-0400 SaO2% (BldA) [Mass fraction] 95 % Da Saba Other [employer] Other 12-09-2021 10:30-0400 Systolic blood pressure 121 mm[Hg] Da Saba Other [employer] Other 10-14-2021 13:53-0400 Body height 167.64 cm [employer] Work Phone: [facility] [employer] 250 DO Work Phone: 10-14-2021 13:53-0400 Body mass index (BMI) [Ratio] 29.38 kg/m2 Candelaria E Mast Work Phone: [facility] [employer] 250 DO Work Phone: 10-14-2021 13:53-0400 Body surface area Derived from formula 1.92 m2 Candelaria E Mast Work Phone: [facility] [employer] 250 DO Work Phone: 10-14-2021 13:53-0400 Body weight 82.56 kg Candelaria E Mast Work Phone: [facility] 250 DO Work Phone: 10-14-2021 13:53-0400 Diastolic blood pressure 52 mm[Hg] Candelaria E Mast Work Phone: [facility] 250 DO Work Phone: 10-14-2021 13:53-0400 Heart rate 60 /min Candelaria E Mast Work Phone: [facility] 250 DO Work Phone: 10-14-2021 13:53-0400 Systolic blood pressure 128 mm[Hg] Candelaria E Mast Work Phone: [facility] 250 DO Work Phone: 09-17-2021 13:30-0400 55 1 Candelaria E Mast Work Phone: [facility] [address] [place] Work Phone: Comment on above: [id number] 04-30-2021 14:30-0500 Body height 165.1 cm Candelaria Mast Other [facility] [employer] Other 04-30-2021 14:30-0500 Body mass index (BMI) [Ratio] 30.5 kg/m2 Candelaria Mast Other [employer] Other 04-30-2021 14:30-0500 Body temperature 98.5 [degF] Candelaria Mast Other [employer] Other 04-30-2021 14:30-0500 Body weight 83.14 kg Candelaria Mast Other [employer] Other 04-30-2021 14:30-0500 Diastolic blood pressure 84 mm[Hg] Candelaria Mast Other [employer] Other 04-30-2021 14:30-0500 Respiratory rate 18 /min Candelaria Mast Other [employer] Other 04-30-2021 14:30-0500 SaO2% (BldA) [Mass fraction] 97 % Candelaria Mast Other [employer] Other 04-30-2021 14:30-0500 Systolic blood pressure 134 mm[Hg] Candelaria Mast Other [employer] Other 03-10-2021 10:30-0500 Body height 165.1 cm Britni Santos Other [employer] Other 03-10-2021 10:30-0500 Body mass index (BMI) [Ratio] 30.57 kg/m2 Britni Santos Other [employer] Other 03-10-2021 10:30-0500 Body temperature 98.2 [degF] Britni Santos Other [employer] Other 03-10-2021 10:30-0500 Body weight 83.33 kg Britni Santos Other [employer] Other 03-10-2021 10:30-0500 Diastolic blood pressure 70 mm[Hg] Britni Santos Other [employer] Other 03-10-2021 10:30-0500 Respiratory rate 18 /min Britni Santos Other [employer] Other 03-10-2021 10:30-0500 SaO2% (BldA) [Mass fraction] 98 % Britni Danielle Other [employer] Other 03-10-2021 10:30-0500 Systolic blood pressure 122 mm[Hg] Britni Danielle Other [employer] Other 02-05-2021 15:00-0500 Body height 165.1 cm Candelaria Mast Other [employer] Other 02-05-2021 15:00-0500 Body mass index (BMI) [Ratio] 29.82 kg/m2 Candelaria Mast Other [employer] Other 02-05-2021 15:00-0500 Body temperature 98.7 [degF] Candelaria Mast Other [employer] Other 02-05-2021 15:00-0500 Body weight 81.29 kg Candelaria Mast Other [employer] Other 02-05-2021 15:00-0500 Diastolic blood pressure 74 mm[Hg] Candelaria Mast Other [employer] Other 02-05-2021 15:00-0500 Respiratory rate 18 /min Candelaria Mast Other [employer] Other 02-05-2021 15:00-0500 SaO2% (BldA) [Mass fraction] 96 % Candelaria Mast Other [employer] Other 02-05-2021 15:00-0500 Systolic blood pressure 136 mm[Hg] Candelaria Mast Other [employer] Other 01-15-2021 15:45-0500 Body height 165.1 cm Candelaria Mast Other [employer] Other 01-15-2021 15:45-0500 Body mass index (BMI) [Ratio] 29.73 kg/m2 Candelaria Mast Other [employer] Other 01-15-2021 15:45-0500 Body temperature 99 [degF] Candelaria Mast Other [employer] Other 01-15-2021 15:45-0500 Body weight 81.06 kg Candelaria Mast Other [employer] Other 01-15-2021 15:45-0500 Diastolic blood pressure 78 mm[Hg] Candelaria Mast Other [employer] Other 01-15-2021 15:45-0500 SaO2% (BldA) [Mass fraction] 93 % Candelaria Mast Other [employer] Other 01-15-2021 15:45-0500 Systolic blood pressure 110 mm[Hg] Candelaria Mast Other [employer] Other 01-08-2021 13:37-0400 Body height 167.64 cm Candelaria E Mast Work Phone: [employer] 250 DO Work Phone: 01-08-2021 13:37-0400 Body mass index (BMI) [Ratio] 28.57 kg/m2 Candelaria E Mast Work Phone: [employer] 250 DO Work Phone: 01-08-2021 13:37-0400 Body surface area Derived from formula 1.9 m2 Candelaria E Mast Work Phone: [facility] 250 DO Work Phone: 01-08-2021 13:37-0400 Body weight 80.29 kg Candelaria E Mast Work Phone: [facility] 250 DO Work Phone: 01-08-2021 13:37-0400 Diastolic blood pressure 72 mm[Hg] Candelaria E Mast Work Phone: [facility] 250 DO Work Phone: 01-08-2021 13:37-0400 Heart rate 60 /min Candelaria E Mast Work Phone: [facility] 250 DO Work Phone: 01-08-2021 13:37-0400 Systolic blood pressure 122 mm[Hg] Candelaria E Mast Work Phone: [facility] [employer] 250 DO Work Phone: 12-10-2020 10:30-0400 Body height 165.1 cm Da Hannano Other [employer] Other 12-10-2020 10:30-0400 Body temperature 97.2 [degF] Christjenniferer Jayant Other [employer] Other 12-10-2020 10:30-0400 Diastolic blood pressure 69 mm[Hg] Christjenniferer Jayant Other [employer] Other 12-10-2020 10:30-0400 Respiratory rate 20 /min Christjenniferer Jayant Other [employer] Other 12-10-2020 10:30-0400 SaO2% (BldA) [Mass fraction] 95 % Antonioer Jayant Other [employer] Other 12-10-2020 10:30-0400 Systolic blood pressure 121 mm[Hg] Da Saba Other [employer] Other Encounters Encounter Date Encounter Type Care Provider Facility Start: 05-19-2023 ambulatory Jeffrey MCKEON Varshai ty:CD:[id number] Start: 05-10-2023 End: 05-11-2023 ambulatory Jeffrey MCKEON Facility:[facility] [place] Start: 05-06-2023 End: 05-07-2023 ambulatory Jeffrey MCKEON Facility:[facility] Start: 05-06-2023 End: 05-06-2023 Patient encounter procedure Jeffrey MCKEON [facility] Start: 05-04-2023 End: 05-05-2023 ambulatory Jeffrey MCKEON Facility:[facility] Start: 05-04-2023 End: 05-04-2023 Patient encounter procedure Jeffrey MCKEON [facility] Start: 04-13-2023 End: 04-13-2023 Emergency department patient visit Buddy Pleitez Facility:[facility] Start: 04-13-2023 End: 04-13-2023 Emergency department patient visit Buddy Pleitez [facility] Start: 03-21-2023 End: 03-21-2023 ambulatory Desirae Ricardo Other [employer] Other Start: 03-21-2023 Office outpatient vi sit 25 minutes Desirae Ricardo [facility] Start: 03-08-2023 End: 03-08-2023 ambulatory [facility] Start: 03-08-2023 End: 03-08-2023 Office outpatient visit 25 minutes Ivette Purcell MD Work Phone: [facility] Comment on above: 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 250 DO Work Phone: Start: 11-18-[address] Candelaria Gusman Fa cility:[id number] Start: 11-15-2022 Rx Renewal Candelaria E Mast Work Phone: [facility] [address] [place] Work Phone: Start: 11-10-2022 Chart Update Candelaria E Mast Work Phone: [facility] [address] [place] Work Phone: Start: 11-09-[address] Ivette Purcell Facility:[id number] Start: 11-02-2022 End: 11-02-2022 ambulatory Candelaria Mast Other [facility] [employer] Other Start: 11-02-2022 Telephone encounter Candelaria Mast [facility] [place] Start: 11-01-[address] Candelaria Gusman Fa cility:[id number] Start: 10-25-2022 End: 10-25-2022 ambulatory Candelaria Mast Facility:[facility] Start: 10-22-2022 Chart Update Candelaria E Mast Work Phone: [facility] 250 DO Work Phone: Start: 10-21-2022 EKG, Provider: JOHNNIE SANDERS DIRECTOR PLANS 1,[id number], Status: Pen, Time: 9:00 AM Candelaria E Mast Work Phone: [facility] 250 DO Work Phone: Start: 10-21-2022 Patient encounter procedure Candelaria E Mast Work Phone: [facility] 250 DO Work Phone: Start: 10-21-2022 End: 10-21-2022 ambulatory Moanahif Cristopheri Facility:[facility] Start: 10-19-2022 Telephone encounter Candelaria E Mas t Work Phone: [facility] 250 DO Work Phone: Start: 10-14-2022 End: 10-14-2022 ambulatory Candelaria Mast Other [employer] Other Start: 10-14-2022 Telephone encounter Candelaria Mast [facility] Start: 10-12-2022 End: 10-12-2022 ambulatory Candelaria Mast Other [employer] Other Start: 10-12-2022 Office outpatient vi sit 25 minutes Candelaria Mast [facility] Start: 08-11-2022 Rx Renewal Candelaria E Mast Work Phone: [facility] [address] [place] Work Phone: Start: 07-15-2022 Office outpatient vi sit 25 minutes Candelaria E Mast Work Phone: [facility] 250 DO Work Phone: Start: 07-15-2022 ambulatory Ivette Purcell Faci lity: Start: 03-17-2022 End: 03-17-2022 ambulatory Da Saba Other [employer] Other Start: 03-17-2022 Office outpatient vi sit 15 minutes Sudarshanopher Jayant [facility] Start: 12-09-2021 End: 12-09-2021 ambulatory Da Saba Other [employer] Other Start: 12-09-2021 Office outpatient vi sit 25 minutes Da Saba [facility] Start: 10-14-2021 Office outpatient vi sit 25 minutes Candelaria E Mast Work Phone: [facility] 250 DO Work Phone: Start: 10-05-2021 Rx Renewal Candelaria E Mast Work Phone: [facility] 250 DO Work Phone: Start: 09-18-2021 Chart Update Candelaria E Mast Work Phone: [facility] 600 DO Work Phone: Start: 09-17-2021 Patient encounter procedure Candelaria E Mast Work Phone: [facility] [address] [place] Work Phone: Start: 08-14-2021 Rx Renewal Candelaria E Mast Work Phone: [facility] 250 DO Work Phone: Start: 07-17-2021 Rx Renewal Candelaria E Mast Work Phone: [facility] 250 DO Work Phone: Start: 05-11-2021 End: 05-11-2021 ambulatory Candelaria Mast Other [facility] [employer] Other Start: 05-11-2021 Telephone encounter Candelaria Mast [facility] Start: 04-30-2021 End: 04-30-2021 ambulatory Candelaria Mast Other [facility] [employer] Other Start: 04-30-2021 Patient encounter procedure Candelaria Mast [facility] Start: 04-30-2021 Telephone encounter Candelaria Mast [facility] [place] Start: 04-08-2021 End: 04-08-2021 ambulatory Candelaria Mast Other [employer] Other Start: 04-08-2021 Telephone encounter Candelaria Mast [facility] [place] Start: 03-12-2021 End: 03-12-2021 ambulatory Candelaria Mast Other [employer] Other Start: 03-12-2021 Telephone encounter Candelaria Mast [facility] [place] Start: 03-10-2021 End: 03-10-2021 ambulatory Britni Danielle Other [employer] Other Start: 03-10-2021 Office outpatient vi sit 25 minutes Britni Santos [facility] [place] Start: 02-09-2021 End: 02-09-2021 ambulatory Candelaria Mast Other [employer] Other Start: 02-09-2021 Telephone encounter Candelaria Mast [facility] [place] Start: 02-05-2021 End: 02-05-2021 ambulatory Candelaria Mast Other [employer] Other Start: 02-05-2021 Office outpatient vi sit 10 minutes Candelaria Mast [facility] [place] Start: 01-15-2021 End: 01-15-2021 ambulatory Candelaria Mast Other [employer] Other Start: 01-15-2021 Office outpatient vi sit 15 minutes Candelaria Mast [facility] [place] Start: 01-08-2021 Office outpatient vi sit 15 minutes Candelaria E Mast Work Phone: [facility] 250 DO Work Phone: Start: 12-18-2020 Telephone encounter Candelaria Mast [facility] [place] Start: 10-06-2021 Office outpatient vi sit 15 minutes Da Saba [facility] Start: 10-02-2018 Encounter for preprocedural laboratory examination JEFFREY MCKEON [facility] Start: 09-21-2018 End: 09-21-2018 Patient encounter procedure JEFFREY MCKEON Facility:[facility]1 Start: 09-18-2018 End: 09-19-2018 Patient encounter procedure JEFFREY MCKEON Facility:[facility] Start: 03-16-2017 Ambulatory BRITNI SANTOS Facility :[id number] Start: 08-05-2015 Adult health examination Barrie Saba Other [employer] Other Encounter for preprocedural laboratory examination JEFFREY MCKEON [facility] Procedures Date Procedure Procedure Detail Performing Clinician Start: 12-16-2022 HOLTER OR EVENT CARD IAC MONITOR IVETTE PURCELL Start: 12-14-2022 OUTSIDE CARDIOLOGY SCAN IVETTE PURCELL Start: 11-09-2022 Echocardiography Candelaria E Mast Work Phone: Start: 09-17-2021 Echocardiography Candelaria E Mast Work Phone: Start: 07-17-2020 Lipid 1996 panel - S joyce or Plasma Ivette Purcell MD Work Phone: Start: 09-26-2019 Open reduction of fracture Buddy Maik Comment on above: Ankle Start: 09-21-2018 Extracorporeal shock wave lithotripsy of the bile duct Buddy Pleitez Comment on above: Left side Start: 06-27-2018 Transurethral prostatectomy Buddyatiya Pleitez Angioplasty of blood vessel Buddy Pleitez Colonoscopy Candelaria E Mast Work Phone: Extraction of cataract Buddy Pleitez Lithotripsy Candelaria E Mast Work Phone: Operative procedure on ankle Candelaria E Mast Work Phone: Percutaneous translu trung coronary angioplasty Candelaria E Mast Work Phone: Placement of stent Buddy roca Comment on above: Cardiac stent placem ent x 5 Procedure on back Candelaria E Mas t Work Phone: Tonsillectomy Buddy Pleitez Transurethral prostatectomy Candelaria E Mast Work Phone: Vasectomy Buddy Pleitez Plan of Treatment Date Care Activity Detail Author Start: 07-17-2025 Lipid panel Lipid Panel [facility] Start: 08-17-2023 End: 08-17-2023 Patient encounter procedure 08/17/2023 2:50 PM EDT Office Visit [facility] [address] [place] [address] Ivette Purcell MD [address] [facility] [place] [address] [facility] Start: 03-08-2023 FUV, Provider: Ivette Purcell, Status: Pen, Time: 2:00 PM FUV, Provider: Ivette Purcell, Status: Pen, Time: 2:[address] 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 Nonrheumatic aortic valve stenosis PAC (premature atrial contraction) Paroxysmal SVT (supraventricular tachycardia) Essential hypertension Mixed hyperlipidemia Expected: 03/08/2023 (Approximate), Expires: 03/08/2024 [facility] Work Phone: Comment on above: Expected: 03/08/2023 (Approximate), Expi res: 03/08/2024 Start: 03-08-2023 End: 03-08-2024 Aspartate aminotransferase [Enzymatic activity/volume] in Serum or Plasma by With P-5'-P Aspartate Aminotransferase Lab Routine 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 Nonrheumatic aortic valve stenosis PAC (premature atrial contraction) Paroxysmal SVT (supraventricular tachycardia) Ventricular ectopic beat Essential hypertension Expected: 03/08/2023 (Approximate), Expires: 03/08/2024 [facility] Work Phone: Comment on above: Expected: 03/08/2023 (Approximate), Expi res: 03/08/2024 Start: 03-08-2023 End: 03-08-2024 Basic metabolic 2000 panel - Serum or Plasma Basic Metabolic Panel Lab Routine 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 Nonrheumatic aortic valve stenosis Paroxysmal SVT (supraventricular tachycardia) Essential hypertension Mixed hyperlipidemia Expected: 03/08/2023 (Approximate), Expires: 03/08/2024 [facility] Work Phone: Comment on above: Expected: 03/08/2023 (Approximate), Expi res: 03/08/2024 Start: 03-08-2023 End: 03-08-2024 Lipid 1996 panel - Serum or Plasma Lipid Panel Lab Routine 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 Mixed hyperlipidemia Expected: 03/08/2023 (Approximate), Expires: 03/08/2024 [facility] Work Phone: Comment on above: Expected: 03/08/2023 (Approximate), Expi res: 03/08/2024 Start: 03-08-2023 End: 03-08-2024 Magnesium [Mass/volume] in Serum or Plasma Magnesium Lab Routine 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 PAC (premature atrial contraction) Expected: 03/08/2023 (Approximate), Expires: 03/08/2024 [facility] Work Phone: Comment on above: Expected: 03/08/2023 (Approximate), Expi res: 03/08/2024 Start: 12-16-2022 HOLTER 48, Provider: JOHNNIE SANDERS DIRECTOR PLANS 1,[id number], Status: Pen, Time: 8:30 AM HOLTER 48, Provider: NOH [id number] DIRECTOR PLANS 1,[id number], Status: Pen, Time: 8:30 AM [facility] 250 DO Work Phone: Start: 11-18-2022 FUV, Provider: Ivette Purcell, Status: Pen, Time: 1:30 PM FUV, Provider: Ivette Purcell, Status: Pen, Time: 1:30 PM [facility] [address] [place] Work Phone: Start: 11-09-2022 ECHO, Provider: RHODA [facility]VI ULTRASOUND 01,[id number], Status: Pen, Time: 10:45 AM ECHO, Provider: RHODA [facility]VI ULTRASOUND 01,[id number], Status: Pen, Time: 10:45 AM [facility] 250 DO Work Phone: Start: 11-05-2022 Influenza vaccination Influenza Vaccine (#1) [facility] Start: 07-15-2022 FUV, Provider: Ivette Purcell, Status: Pen, Time: 1:20 PM FUV, Provider: Ivette Purcell, Status: Pen, Time: 1:20 PM [facility] 250 DO Work Phone: Start: 10-14-2021 FUV, Provider: Ivette Purcell, Status: Pen, Time: 1:30 PM FUV, Provider: Ivette Purcell, Status: Pen, Time: 1:30 PM [facility] 250 DO Work Phone: Start: 09-17-2021 ECHO, Provider: RHODA [facility] ULTRASOUND 01,[id number], Status: Pen, Time: 1:30 PM ECHO, Provider: RHODA [facility] ULTRASOUND 01,[id number], Status: Pen, Time: 1:30 PM [facility] DO Work Phone: Start: 06-11-2021 COVID-19 Vaccine (3 - Pfizer series) COVID-19 Vaccine (3 - Pfizer series) [facility] Start: 1987 Zoster Vaccines (1 of 2) Zoster Vaccines (1 of 2) [facility] Start: 1959 DTaP/Tdap/Td Vaccines (1 - Tdap) DTaP/Tdap/Td Vaccines (1 - Tdap) [facility] Start: 1955 Diabetes mellitus screening Diabetes Screening [facility] Start: 1937 Medicare Annual Wellness Visit Medicare Annual Wellness Visit (AWV) [facility] Immunizations Immunization Date Immunization Notes Care Provider Reagan núñez 04-16-2021 Comirnaty 30 MCG/0.3 ML Intramuscular Suspension Candelaria E Mast Work Phone: [facility] 600 DO Work Phone: 04-16-2021 SARS-CoV-2 mRNA (rchscowunpf-rtmq-fkhch se) vaccine Jeffrey MCKEON [facility] 05-01-2020 Do not use COVID-19 Pfizer 2 dose Christopher Jayant Other [facility] Comment on above: Result Comment: 2023: [id number] 04-08-2020 Do not use COVID-19 Pfizer 2 dose Christopher Jayant Other [facility] Comment on above: Result Comment: 2023: [id number] 11-14-2015 pneumococcal conjuga te vaccine, 13 valent Candelaria E Mast Work Phone: [facility] 250 DO Work Phone: 03-07-2015 pneumococcal polysaccharide vaccine, 23 valent Candelaria E Mast Work Phone: [facility] 250 DO Work Phone: Comment on above: Series: Payers Date Payer Category Payer Self-pay 2002 Medicare MEDICARE MEDICAR E PART A AND B [id number] 2002-Present [address] [place] [address] [id number] 1959 Medicare [id number] 1959 Unknown [id number] 1937 Unknown [id number] 1937 Unknown [id number] 1937 Unknown [id number] [id number] 1937 Unknown [id number] 1937 Unknown [id number] [id number] 1937 Unknown [id number] [id number] 1937 Unknown [id number] [id number] 1937 Unknown [id number] [id number] 1937 Unknown [id number] [id number] 1937 Unknown [id number] [id number] 1937 Unknown [id number] [id number] 1937 Unknown [id number] [id number] 1937 Unknown [id number] [id number] Medicare [id number] Unknown Unknown [id number] Unknown [id number] Social History Date Type Detail Facility Start: 03-08-2023 Daily caffeine consumption, 2-3 servings a day Daily caffeine consumption, 2-3 servings a day [facility] Other Start: 03-08-2023 Sex Assigned At F [facility] Start: 03-08-2023 Tobacco smoking status NHIS Ex-smoker [facility] End: 03-07-1961 History of tobacco use Current smoker [facility] Work Phone: End: 03-07-1961 History of tobacco use Cigarette Smoker [facility] Work Phone: Start: 03-08-2023 Tobacco use and exposure Smokeless tobacco non-user [facility] Work Phone: Start: 03-08-2023 Alcohol intake Lifetime non-d leonie (finding) [facility] Work Phone: Start: 1935 Sex Assigned At Not on file [facility] Work Phone: Start: 02-26-2023 End: 03-08-2023 Exposure to SARS-CoV-2 (event) Not sure [facility] Start: 09-25-2019 Tobacco smoking status Smokes tobacco daily (finding) [facility] Start: 05-06-2023 Tobacco smoking status Occasional tobacco smoker (finding) [facility] Tobacco smoking status Never [facility] Medical Equipment Procedure Code Equipment Code Equipment Origin al Text Equipment Identifier Dates ANKLE FRACTURE O RIF Unknown 09/26/19 Unknown Ankle L FDA Start: 09-26-2019 ANKLE FRACTURE O RIF Unknown 09/26/19 Unknown Ankle L FDA Start: 09-26-2019 ANKLE FRACTURE O RIF Unknown 09/26/19 Unknown Ankle L FDA Start: 09-26-2019 ANKLE FRACTURE O RIF Unknown 09/26/19 Unknown Ankle L FDA Start: 09-26-2019 ANKLE FRACTURE O RIF Unknown 09/26/19 Unknown Ankle L FDA Start: 09-26-2019 ANKLE FRACTURE O RIF Unknown 09/26/19 Unknown Ankle L FDA Start: 09-26-2019 ANKLE FRACTURE O RIF Unknown 09/26/19 Unknown Ankle L FDA Start: 09-26-2019 ANKLE FRACTURE O RIF Unknown 09/26/19 Unknown Ankle L FDA Start: 09-26-2019 ANKLE FRACTURE O RIF Unknown 09/26/19 Unknown Ankle L FDA Start: 09-26-2019 ANKLE FRACTURE O RIF Unknown 09/26/19 Unknown Ankle L FDA Start: 09-26-2019 ANKLE FRACTURE O RIF Unknown 09/26/19 Unknown Ankle L FDA Start: 09-26-2019 ANKLE FRACTURE O RIF Unknown 09/26/19 Unknown Ankle L FDA Start: 09-26-2019 ANKLE FRACTURE O RIF Unknown 09/26/19 Unknown Ankle L FDA Start: 09-26-2019 ANKLE FRACTURE O RIF Unknown 09/26/19 Unknown Ankle L FDA Start: 09-26-2019 ANKLE FRACTURE O RIF Unknown 09/26/19 Unknown Ankle L FDA Start: 09-26-2019 Functional Status Date Assessment Result Facility 05-06-2023 Functional Status N/A [facility] 04-13-2023 Functional Status N/A [facility] Clinical Notes 01-08-2019 to 05-06-2023 Note Date & Type Note Facility 05-06-2023 Hospital Discharg e instructions Patient Education 05/06/2023 10:00:39 Hydronephrosis Hydronephrosis Hydronephrosis is the swelling of one or both kidneys due to a blockage that stops urine from flowing out of the body. Kidneys filter waste from the blood and produce urine. This condition can lead to kidney failure and may become life-threatening if not treated promptly. What are the causes? In infants and children, common causes include problems that occur when a baby is developing in the womb. These can include problems in the kidneys or in the tubes that drain urine into the bladder (ureters). In adults, common causes include: Kidney stones. . A tumor or cyst in the abdomen or pelvis. An enlarged prostate gland. Other causes include: Bladder infection. Scar tissue from a previous surgery or injury. A blood clot. Cancer of the prostate, bladder, uterus, ovary, or colon. What are the signs or symptoms? Symptoms of this condition include: Pain or discomfort in your side (flank) or abdomen. Swelling in your abdomen. Nausea and vomiting. Fever. Pain when passing urine. Feelings of urgency when you need to urinate. Urinating more often than normal. In some cases, you may not have any symptoms. How is this diagnosed? This condition may be diagnosed based on: Your symptoms and medical history. A physical exam. Blood and urine tests. Imaging tests, such as an ultrasound, CT scan, or MRI. A procedure to look at your urinary tract and bladder by inserting a scope into the urethra (cystoscopy). How is this treated? Treatment for this condition depends on where the blockage is, how long it has been there, and what caused it. The goal of treatment is to remove the blockage. Treatment may include: Antibiotic medicines to treat or prevent infection. A procedure to place a small, thin tube (stent) into a blocked ureter. The stent will keep the ureter open so that urine can drain through it. A nonsurgical procedure that crushes kidney stones with shock waves (extracorporeal shock wave lithotripsy). If kidney failure occurs, treatment may include dialysis or a kidney transplant. Follow these instructions at home: Take ghqt-lpw-bmmbggt and prescription medicines only as told by your health care provider. If you were prescribed an antibiotic medicine, take it exactly as told by your health care provider. Do not stop taking the antibiotic even if you start to feel better. Rest and return to your normal activities as told by your health care provider. Ask your health care provider what activities are safe for you. Drink enough fluid to keep your urine pale yellow. Keep all follow-up visits. This is important. Contact a health care provider if: You continue to have symptoms after treatment. You develop new symptoms. Your urine becomes cloudy or bloody. You have a fever. Get help right away if: You have severe flank or abdominal pain. You cannot drink fluids without vomiting. Summary Hydronephrosis is the swelling of one or both kidneys due to a blockage that stops urine from flowing out of the body. Hydronephrosis can lead to kidney failure and may become life-threatening if not treated promptly. The goal of treatment is to remove the blockage. It may include a procedure to insert a stent into a blocked ureter, a procedure to break up kidney stones, or taking antibiotic medicines. Follow your health care provider's instructions for taking care of yourself at home, including instructions about drinking fluids, taking medicines, and limiting activities. This information is not intended to replace advice given to you by your health care provider. Make sure you discuss any questions you have with your health care provider. Document Revised: 06/10/2020 Document Reviewed: 06/10/2020 Elsevier Patient Education 2022 [employer]. Follow Up Care 04/20/2023 14:11:17 With:SIRISHA JEAN, Jeffrey Arredondo, URL Address: [address] [place] [address]- When: Unknown [facility] 04-13-2023 Hospital Discharg e instructions Patient Education 04/13/2023 12:38:16 Kidney Stones Kidney Stones Kidney stones are solid, rock-like deposits that form inside of the kidneys. The kidneys are a pair of organs that make urine. A kidney stone may form in a kidney and move into other parts of the urinary tract, including the tubes that connect the kidneys to the bladder (ureters), the bladder, and the tube that carries urine out of the body (urethra). As the stone moves through these areas, it can cause intense pain and block the flow of urine. Kidney stones are created when high levels of certain minerals are found in the urine. The stones are usually passed out of the body through urination, but in some cases, medical treatment may be needed to remove them. What are the causes? Kidney stones may be caused by: A condition in which certain glands produce too much parathyroid hormone (primary hyperparathyroidism), which causes too much calcium buildup in the blood. A buildup of uric acid crystals in the bladder (hyperuricosuria). Uric acid is a chemical that the body produces when you eat certain foods. It usually leaves the body in the urine. Narrowing (stricture) of one or both of the ureters. A kidney blockage that is present at (congenital obstruction). Past surgery on the kidney or the ureters. What increases the risk? The following factors may make you more likely to develop this condition: Having had a kidney stone in the past. Having a family history of kidney stones. Not drinking enough water. Eating a diet that is high in protein, salt (sodium), or sugar. Being overweight or obese. What are the signs or symptoms? Symptoms of a kidney stone may include: Pain in the side of the abdomen, right below the ribs (flank pain). Pain usually spreads (radiates) to the groin. Needing to urinate often or urgently. Painful urination. Blood in the urine (hematuria). Nausea. Vomiting. Fever and chills. How is this diagnosed? This condition may be diagnosed based on: Your symptoms and medical history. A physical exam. Blood tests. Urine tests. These may be done before and after the stone passes out of your body through urination. Imaging tests, such as a CT scan, abdominal X-ray, or ultrasound. A procedure to examine the inside of the bladder (cystoscopy). How is this treated? Treatment for kidney stones depends on the size, location, and makeup of the stones. Kidney stones will often pass out of the body through urination. You may need to: Increase your fluid intake to help pass the stone. In some cases, you may be given fluids through an IV and may need to be monitored in the hospital. Take medicine for pain. Make changes in your diet to help prevent kidney stones from coming back. Sometimes, procedures are needed to remove a kidney stone. This may involve: A procedure to break up kidney stones using: ?A focused beam of light (laser therapy). ?Shock waves (extracorporeal shock wave lithotripsy). Surgery to remove kidney stones. This may be needed if you have severe pain or have stones that block your urinary tract. Follow these instructions at home: Medicines Take qkdt-mwf-qwzmnbe and prescription medicines only as told by your health care provider. Ask your health care provider if the medicine prescribed to you requires you to avoid driving or using heavy machinery. Eating and drinking Drink enough fluid to keep your urine pale yellow. You may be instructed to drink at least 8 10 glasses of water each day. This will help you pass the kidney stone. If directed, change your diet. This may include: ?Limiting how much sodium you eat. ?Eating more fruits and vegetables. ?Limiting how much animal protein you eat. Animal proteins include red meat, poultry, fish, and eggs. ?Eating a normal amount of calcium (1,000 1,300 mg per day). Follow instructions from your health care provider about eating or drinking restrictions. General instructions Collect urine samples as told by your health care provider. You may need to collect a urine sample: ?24 hours after you pass the stone. ?8 12 weeks after you pass the kidney stone, and every 6 12 months after that. Strain your urine every time you urinate, for as long as directed. Use the strainer that your health care provider recommends. Do not throw out the kidney stone after passing it. Keep the stone so it can be tested by your health care provider. Testing the makeup of your kidney stone may help prevent you from getting kidney stones in the future. Keep all follow-up visits. You may need follow-up X-rays or ultrasounds to make sure that your stone has passed. How is this prevented? To prevent another kidney stone: Drink enough fluid to keep your urine pale yellow. This is the best way to prevent kidney stones. Eat a healthy diet. Follow recommendations from your health care provider about foods to avoid. Recommendations vary depending on the type of kidney stone that you have. You may be instructed to eat a low-protein diet. Maintain a healthy weight. Where to find more information National Kidney Foundation (NKF): www.kidney.org U[employer] Care Foundation (UCF): www.urologyhealth.org Contact a health care provider if: You have pain that gets worse or does not get better with medicine. Get help right away if: You have a fever or chills. You develop severe pain. You develop new abdominal pain. You faint. You are unable to urinate. Summary Kidney stones are solid, rock-like deposits that form inside of the kidneys. Kidney stones can cause nausea, vomiting, blood in the urine, abdominal pain, and the urge to urinate often. Treatment for kidney stones depends on the size, location, and makeup of the stones. Kidney stones will often pass out of the body through urination. Kidney stones can be prevented by drinking enough fluids, eating a healthy diet, and maintaining a healthy weight. This information is not intended to replace advice given to you by your health care provider. Make sure you discuss any questions you have with your health care provider. Document Revised: 06/02/2022 Document Reviewed: 06/02/2022 [employer] Patient Education 2022 [employer]. Follow Up Care 04/13/2023 09:57:17 With:Ricardo JACKSON Address: [address] [place], [place] [address], [place] [address]- Business (1) When:04/16/2023 12:35:07 Comments:Call for diagnosis based follow up With:CANDELARIA GUSMAN Address: [facility] [address] [place] [address]- Business (1) When:04/16/2023 12:34:53 Comments:Call the office of your primary care doctor to arrange for follow-up within the above-stated timeframe. Follow-up with your primary care doctor about this ED visit. You should review your labs, imaging, and diagnoses from this ED visit with your primary care physician. There are occasionally non-emergent findings that require additional follow-up after your ED visit. If you were prescribed medications you should discuss possible side-effects and drug interactions with your pharmacist. Call 911 or go to the nearest Emergency Department if you develop any new or worsening symptoms.Seek immediate medical attention if you develop:worsening abdominal pain, new or worsening nausea, new or worsening vomiting, new or worsening diarrhea, chest pain, shortness of breath, pain with urination, problems urinating, fever, chills, weakness, or any new or worsening symptoms. [facility] 04-13-2023 Evaluation + Plan note Extrac stephy from: Title:ED Note Author:Buddy Pleitez DO Date: Ureteral colic (N23: Unspeci fied renal colic) Ordered: acetaminophen-hydrocodone, 1 tab(s), Oral, q6hr for pain for 3 day(s), 12 tab(s), Refill(s) 0, [id number], 167.6, cm, 04/13/23 10:07:00 EST, Height/Length Dosing, 79, kg, 04/13/23 10:07:00 EST, Weight Dosing Orders: ketorolac, 30 mg = 1 mL, Injection, IV Push, Once, Stop date 04/13/23 10:47:00 EST, STAT, Start date 04/13/23 10:47:00 EST, 04/13/23 10:47:00 EST morphine, 4 mg = 1 mL, Injection, IV Push, Once, Stop date 04/13/23 10:47:00 EST, STAT, Start date 04/13/23 10:47:00 EST, 04/13/23 10:47:00 EST ondansetron, 4 mg = 2 mL, Injection, IV Push, Once, Stop date 04/13/23 10:47:00 EST, STAT, Start date 04/13/23 10:47:00 EST, 04/13/23 10:47:00 EST ondansetron, 4 mg = 1 tab(s), Oral, q8hr, PRN Nausea/Vomiting, # 30 tab(s), Refills(s) 0, Pharmacy: [id number], 167.6, cm, 04/13/23 10:07:00 EST, Height/Length Dosing, 79, kg, 04/13/23 10:07:00 EST, Weight Dosing Sodium Chloride 0.9% intravenous solution, 1,000 mL, Soln-IV, IV, Once, Stop date 04/13/23 10:47:00 EST, STAT, Start date 04/13/23 10:47:00 EST, Infuse over 61, minute(s) tamsulosin, 0.4 mg = 1 cap(s), Oral, Daily, X 14 day(s), # 14 cap(s), Refills(s) 0, Pharmacy: [id number], 167.6, cm, 04/13/23 10:07:00 EST, Height/Length Dosing, 79, kg, 04/13/23 10:07:00 EST, Weight Dosing Basic Metabolic Panel CBC w/ Auto Diff CT Abdomen/Pelvis w/o Contrast ED Cardiac Monitoring eGFR Extra Blue Tube Hepatic Function Panel Lipase Level Saline Lock Insert Troponin 0 Hr. UA With Cult Reflex [facility]01-15-2024 Evaluation note* Encounter Date Diagnosis Assessment Notes Treatment Notes Treatment Clinical Notes Mar, Obstructive airway disease (ICD-10 - J44.9) [facility] Other 01-02-2024 History of Present illness Narrative* Ivette Purcell MD - 03/08/2023 2:00 PM EST Subjective Abhijit Tavarez is a 88 y.o. male Chief Complaint Follow-up HPI Patient is here for follow-up continue management for coronary artery disease with prior PCI to themarginal, with recent observation of ventricular and atrial ectopy with some SVT. Moderate aortic stenosis, obesity and sleep apnea. Since last time I saw him he denies any changes in cardiac status or symptoms. Last time I stopped his diuretic and added magnesium. Repeat Holter monitor continues to demonstrate moderate to high volume of arrhythmia but this is minimally symptomatic. Patient denies lightheadedness, dizziness or syncope. ASSESSMENT: 1. Coronary artery disease, prior percutaneous coronary intervention to the marginal, he denies chest pain. His last stress test 3 years ago was negative. Described functional class I 2., Frequent ventricular ectopy and supraventricular ectopy and runs of supraventricular tachycardia. His recent Holter monitor noted and reviewed with him. 3. Asthma and breath unchanged from before. 4. Moderate aortic stenosis based on his l recent echocardiogram 5. Mild obesity 6. Classic sleep apnea symptomatology 7. Hypertriglyceridemia 8. SVT RECOMMENDATIONS: 1. I reviewed with the patient results of his recent Holter monitor and we discussed treatment option. We discussed EP evaluation versus continuation observant approach. Following lengthy discussion the patient elected to continue with observant approach because of lack of symptoms. 2. The patient was advised to lose weight and to exercise. 3. I advised the patient to notify me if he develop any lightheadedness, dizziness or syncope or ifhe changes his mind in regard to EP evaluation I will see him back in the office in 6 months we will plan to repeat his lab work 4. The patient was advised to notify me any change in cardiac status or symptoms. Review of Systems All other systems reviewed and are negative. Visit Vitals BP 134/74 (BP Location: Left arm, Patient Position: Sitting) Pulse 60 Ht 1.676 m (5' 6 ) Wt 79.8 kg (176 lb) BMI 28.41 kg/m Smoking Status Former BSA 1.93 m Objective Physical Exam Constitutional: Appearance: Normal appearance. He is normal weight. HENT: Nose: Nose normal. Neck: Vascular: No carotid bruit. Cardiovascular: Rate and Rhythm: Normal rate. Pulses: Normal pulses. Heart sounds: Normal heart sounds. Pulmonary: Effort: Pulmonary effort is normal. Abdominal: General: Bowel sounds are normal. Palpations: Abdomen is soft. Genitourinary: Rectum: Normal. Musculoskeletal: General: Normal range of motion. Cervical back: Normal range of motion. Right lower leg: No edema. Left lower leg: No edema. Skin: General: Skin is warm and dry. Neurological: General: No focal deficit present. Mental Status: He is alert. Psychiatric: Mood and Affect: Mood normal. Behavior: Behavior normal. Thought Content: Thought content normal. Judgment: Judgment normal. Current Medications Current Outpatient Medications: albuterol 90 mcg/actuation inhaler, Inhale 1 puff every 4 hours if needed., Disp: , Rfl: aspirin 81 mg EC tablet, Take 1 tablet (81 mg) by mouth once daily., Disp: , Rfl: fluocinonide (Lidex) 0.05 % gel, Apply topically once daily as needed., Disp: , Rfl: magnesium oxide (Mag-Ox) 400 mg tablet, 1 tablet (400 mg) once daily., Disp: , Rfl: metoprolol tartrate (Lopressor) 25 mg tablet, Take 1 tablet (25 mg) by mouth once daily., Disp: , Rfl: metroNIDAZOLE (Metrogel) 0.75 % gel, Apply topically once daily. APPLY TOPICALLY TO FACE, Disp: , Rfl: nitroglycerin (Nitrostat) 0.4 mg SL tablet, Place 1 tablet (0.4 mg) under the tongue every 5 minutes if needed for chest pain. UNDER THE TONGUE EVERY 5 MINUTES UP TO 3 DOSES NEEDED FOR CHEST PAIN., Disp: , Rfl: omega 0-ggg-ysj-fish oil 360 mg-108 mg- 180 mg-1,200 mg capsule, Take by mouth., Disp: , Rfl: rosuvastatin (Crestor) 40 mg tablet, TAKE 1 TABLET BY MOUTH AT BEDTIME, Disp: 90 tablet, Rfl: 3 vit C-U-wujzii-zinc-lutein (Eye Multivit-Lutein,C-E-Cu-Zn,) 226 mg-90 mg-2 mg- 34.8 mg-5 mg capsule,Take by mouth., Disp: , Rfl: Assessment/Plan 1. 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Follow Up In Cardiology Basic Metabolic Panel Lipid Panel Magnesium Alanine Aminotransferase Aspartate Aminotransferase 2. Nonrheumatic aortic valve stenosis Basic Metabolic Panel Alanine Aminotransferase Aspartate Aminotransferase 3. PAC (premature atrial contraction) Magnesium Alanine Aminotransferase Aspartate Aminotransferase 4. Paroxysmal SVT (supraventricular tachycardia) Basic Metabolic Panel Alanine Aminotransferase Aspartate Aminotransferase 5. Ventricular ectopic beat Aspartate Aminotransferase 6. Essential hypertension Basic Metabolic Panel Alanine Aminotransferase Aspartate Aminotransferase 7. Mixed hyperlipidemia Basic Metabolic Panel Lipid Panel Alanine Aminotransferase 8. Bradycardia 9. Dyspnea on exertion 10. Obstructive sleep apnea syndrome [facility] Work Phone: 1(489) 190-316701-02-2024 Instructions* Patient Instructions* Tanya Storey CMA - 03/08/2023 2:00 PM EST Please bring all medicines, vitamins, and herbal supplements with you when you come to the office. Prescriptions will not be filled unless you are compliant with your follow up appointments or have a follow up appointment scheduled as per instruction of your physician. Refills should be requested at the time of your visit. [facility] Work Phone: 1(519) 945-516508-10-2023 Evaluation note* Encounter Date Diagnosis Assessment Notes Treatment Notes Treatment Clinical Notes Oct, Bradycardia (ICD-10 - R00.1) [facility] Other 08-08-2023 Evaluation note* Encounter Date Diagnosis Assessment Notes Treatment Notes Treatment Clinical Notes Oct, Lumbar back pain with radiculopathy affecting left lower extremity (ICD-10 - M54.16) His symptoms do not sound like renal colic, they are much more suspicious for musculoskeletal low back pain with an intermittent radiculopathy. His symptoms are minimal today. We reviewed treatment options including OTC Tylenol, NSAIDs, muscle relaxants, lidocaine patches, physical therapy. Ultimately, he decided to continue using intermittent Tylenol and he will let me know if he wants to do anything further. Oct, Bradycardia (ICD-10 - R00.1) EKG performed which shows ventricular bigeminy. I reviewed his office and hospital chart and could not find an EKG in the last few years, and the most recent one from 3 years ago showed sinus rhythm. He seems to be completely asymptomatic. 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 Purcell. Bradycardia warning signs are reviewed, call or go to the ER should they occur. Oct, Ventricular bigeminy (ICD-10 - I49.8) [facility] Other 01-11-2023 Evaluation note* Encounter Date Diagnosis Assessment Notes Treatment Notes Treatment Clinical Notes Mar, Obstructive airway disease (ICD-10 - J44.9) Mar, Diastolic dysfunction (ICD-10 - I51.9) [facility] Other 10-05-2022 Evaluation note* Encounter Date Diagnosis Assessment Notes Treatment Notes Treatment Clinical Notes Dec, Obstructive airway disease (ICD-10 - J44.9) Dec, Diastolic dysfunction (ICD-10 - I51.9) Dec, Sleep apnea (ICD-10 - G47.30) [facility] Other 03-07-2022 Evaluation note* Encounter Date Diagnosis Assessment Notes Treatment Notes Treatment Clinical Notes May, Essential (primary) hypertension (ICD-10 - I10) May, Irregular heart rhythm (ICD-10 - I49.9) [facility] Other 03-07-2022 Evaluation note* Encounter Date Diagnosis Assessment Notes Treatment Notes Treatment Clinical Notes May, Essential (primary) hypertension (ICD-10 - I10) [facility] Other 02-24-2022 Evaluation note* Encounter Date Diagnosis Assessment Notes Treatment Notes Treatment Clinical Notes Apr, Medicare annual wellness visit, initial (ICD-10 - Z00.00) Personalized health advice was given to the beneficiary including a written plan for screenings discussed and provided. Advanced care planning reviewed and/or information given as requested. Additional counseling was provided here today in regards to, ( ). The above visit was performed by Roselia Villalobos LPN, IV-EARLENE, under direct supervision of Dr. Candelaria Gusman DO. Document reviewed and amended by provider signed below. His exam is stable. No changes are made. Continue to follow with specialty care as he is doing. Encouraged preventive issues as noted above. Recheck in 1 year, sooner if problems Apr, Diastolic dysfunction (ICD-10 - I51.9) [facility] Other 01-04-2022 Evaluation note* Encounter Date Diagnosis Assessment Notes Treatment Notes Treatment Clinical Notes Mar, Contact with and (suspected) exposure to other viral communicable diseases (ICD-10 - Z20.828) COVID negative. See above treatment plan. Mar, Moderate persistent asthma with exacerbation (ICD-10 - J45.41) Discussed diagnosis with patient. COVID negative. Patient to start Doxycycline due to increased sputum production and fatigue, SOB. Finish entire course of antibiotic. Stop Medrol dose pack and will change to Prednisone 60 mg daily x 5 days with food in AM. Continue Albuterol PRN. Increase fluids and rest. Hqra-hbt-tpasbwe antipyretics as needed. Warning signs and symptoms reviewed with patient today. Patient to go immediately to the ER should he experience any of these. Patient to notify office should symptoms persist and not improve. Patient verbalizes understanding and agrees to treatment plan. Mar, Other Additional time spent conducting pre-visit phone call, screening for symptoms, instructions on social distancing, application and removal of PPE, and cleaning of examination room, equipment and supplies was preformed. [facility] Other 12-02-2021 Evaluation note* Encounter Date Diagnosis Assessment Notes Treatment Notes Treatment Clinical Notes Feb, Benign paroxysmal positional vertigo of left ear (ICD-10 - H81.12) Symptoms are resolved. Recheck as needed [facility] Other 11-11-2021 Evaluation note* Encounter Date Diagnosis Assessment Notes Treatment Notes Treatment Clinical Notes Jan, Benign paroxysmal positional vertigo of left ear (ICD-10 - H81.12) I think his symptoms are most likely coming from BPV, we discussed this at length. I encouraged him to start doing Andrzej maneuvers at home, then recheck in 3 weeks. We discussed his ambulatory difficulties may or may not be related to this, and if they persist, then I would proceed with additional work-up for possible ataxia including brain imaging, likely MRI. He is in agreement, call if problems. [facility] Other 10-06-2021 Evaluation note* Encounter Date Diagnosis Assessment Notes Treatment Notes Treatment Clinical Notes Dec, Obstructive airway disease (ICD-10 - J44.9) Dec, Diastolic dysfunction (ICD-10 - I51.9) [facility] Other 05-06-2020 History of Present illness Narrative* Patient is here for follow-up continue management for coronary artery disease with prior PCI to themarginal, hyperlipidemia, mild aortic stenosis and obesity. Since last time I saw him his only complaint is mild shortness of breath due to his asthma. He denies lightheadedness, dizziness or syncope. His last work-up was couple of years ago. His stress test was negative his echocardiogram showed aortic stenosis. Patient denies change in his cardiac status or symptoms. * ASSESSMENT: * 1. Coronary artery disease, prior percutaneous coronary intervention to the marginal, he denies chest pain. His recent stress test is negative. Described functional class I * 2. Hyperlipidemia controlled * 3. Symptoms of asthma and shortness of breath unchanged from before * 4. Mild aortic stenosis documented on echo several years ago * 5. Mild obesity * RECOMMENDATIONS: * 1. I advised the patient to continue present medical * 2. The patient was advised to lose weight and to exercise. * 3. I will see him back in the office in 9 month and will repeat his echocardiogram to reassess the aortic stenosis * 4. The patient was advised to notify me any change in cardiac status or symptoms. * 5. I reviewed with him his recent lab work all appears to be satisfactory [facility] Work Phone: [phone]) 387-725311-04-2019 History of Present illness Narrative* Patient is here for follow-up continue management for coronary artery disease with prior PCI to themarginal, hyperlipidemia, mild aortic stenosis and obesity. Since last time I saw him his only complaint is mild shortness of breath due to his asthma. He denies lightheadedness, dizziness or syncope. His last work-up was couple of years ago. His stress test was negative his echocardiogram showed aortic stenosis. Patient denies change in his cardiac status or symptoms. * ASSESSMENT: * 1. Coronary artery disease, prior percutaneous coronary intervention to the marginal, he denies chest pain. His recent stress test is negative. Described functional class I * 2. Hyperlipidemia controlled * 3. Symptoms of asthma and shortness of breath unchanged from before * 4. Mild aortic stenosis documented on echo several years ago * 5. Mild obesity * RECOMMENDATIONS: * 1. I advised the patient to continue present medical * 2. The patient was advised to lose weight and to exercise. * 3. I will see him back in the office in 9 month and will repeat his echocardiogram to reassess the aortic stenosis * 4. The patient was advised to notify me any change in cardiac status or symptoms. * 5. I reviewed with him his recent lab work all appears to be satisfactory [facility] DO Work Phone: Evaluation + Plan note Future Appointments Appointment Date:05/06/2023 09:00:00 AM Scheduled Provider:Jeffrey MCKEON MD Location:[facility] Appointment [facility]O [facility] Future Appointments Appointment Date:05/10/2023 08:00:00 AM Scheduled Provider: [facility]:XR Genital/Urinary Procedures () Future Scheduled Tests Laboratory* Creatinine 05/06/23 Radiology* XR IVP 05/10/23 [facility] evaluation noteNo InformationNort [employer] Other Evaluation note* Diagnosis 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- Primary Nonrheumatic aortic valve stenosis PAC (premature atrial contraction) Supraventricular premature beats Paroxysmal SVT (supraventricular tachycardia) Ventricular ectopic beat Other premature beats Essential hypertension Unspecified essential hypertension Mixed hyperlipidemia Bradycardia Other specified cardiac dysrhythmias Dyspnea on exertion Other dyspnea and respiratory abnormality Obstructive sleep apnea syndrome Obstructive sleep apnea (adult) (pediatric) documented in this encounter [facility] Work Phone: History general Narrative - Reported* Type Description Date Medical History CAD Medical History hypercholesterolemia Medical History asthma Medical History macular degeneration Medical History rocescea Medical History [place] Medical History diastolic dysfunction Surgical History Procedure:angioplasty 2006, 200 8;Disease: Surgical History wisdom teeth Surgical History angioplasty 2005,2007 Surgical History TURP Surgical History Lower back Dr. Herrera 08/2019 Surgical History lt. ankle fx 09/2019 Hospitalization History see above [facility] Other [facility] Narrative - Reported* Type Description Date Medical History CAD Medical History hypercholesterolemia Medical History asthma Medical History macular degeneration Medical History rosacea Medical History [place] Medical History diastolic dysfunction Surgical History Procedure:angioplasty 2006, 200 8;Disease: Surgical History wisdom teeth Surgical History angioplasty 2005,2007 Surgical History TURP Surgical History Lower back Dr. Herrera 08/2019 Surgical History lt. ankle fx 09/2019 Hospitalization History see above [facility] Other [facility] Narrative - Reported* Type Description Date Medical History CAD Medical History hypercholesterolemia Medical History asthma Medical History macular degeneration Medical History rosacea Medical History [place] Medical History diastolic dysfunction Medical History sleep apnea Surgical History Procedure:angioplasty 2006, 200 8;Disease: Surgical History wisdom teeth Surgical History angioplasty 2005,2007 Surgical History TURP Surgical History Lower back Dr. Herrera 08/2019 Surgical History lt. ankle fx 09/2019 Hospitalization History see above [facility] Other [facility] Narrative - Reported* Type Description Date Medical History CAD Medical History hypercholesterolemia Medical History asthma Medical History macular degeneration Medical History rosacea Medical History [place]- uses wedge pillow Medical History diastolic dysfunction Medical History sleep apnea Surgical History Procedure:angioplasty 2006, 200 8;Disease: Surgical History wisdom teeth Surgical History angioplasty 2005,2007 Surgical History TURP Surgical History Lower back Dr. Herrera 08/2019 Surgical History lt. ankle fx 09/2019 Hospitalization History see above [facility] Other History of Present illness Narrative* Patient is here for follow-up continue management for history of coronary artery disease, hyperlipidemia, aortic stenosis and patient complaint of shortness of breath. Since last time I saw him he reports he is doing well. He denies complaint of lightheadedness, dizziness or syncope. He reports shortness of breath unchanged from before. His recent echocardiogram showed moderate aortic stenosis with some progression of his aortic valve disease. His report classic symptoms of sleep apnea including loud snoring, apneic episodes and daily naps. He is followed by pulmonary. * ASSESSMENT: * 1. Coronary artery disease, prior percutaneous coronary intervention to the marginal, he denies chest pain. His recent stress test is negative. Described functional class I * 2. Hyperlipidemia controlled * 3. Symptoms of asthma and shortness of breath unchanged from before. Appears to be due to asthma * 4. Moderate aortic stenosis based on recent echocardiogram * 5. Mild obesity * 6. Classic sleep apnea symptomatology * 7. Hypertriglyceridemia * RECOMMENDATIONS: * 1. I advised the patient to continue present medical and continue to encourage him to take fish [id number] mg daily * 2. The patient was advised to lose weight and to exercise. * 3. I I reviewed his echocardiogram with him and suggested continue with observant approach * 4. The patient was advised to notify me any change in cardiac status or symptoms. * 5. I advised him to discuss with his mixing technician the diagnosis of sleep apnea and consider outpatient sleep study * 6. Follow-up in [address] [facility] [employer] Work Phone: History of Present illness Narrative* Patient is here for follow-up and management for coronary artery disease with remote PCI to the marginal, hyperlipidemia, aortic stenosis, obesity and hypercaloric triglyceridemia./Time I saw him he denies any other complaint of chest pain, palpitation, lightheadedness, dizziness or syncope. He continues to be reasonably active. No recent lab available. * ASSESSMENT: * 1. Coronary artery disease, prior percutaneous coronary intervention to the marginal, he denies chest pain. His last stress test 3 years ago was negative. Described functional class I * 2. Hyperlipidemia controlled. No recent labs * 3. Symptoms of asthma and shortness of breath unchanged from before. Appears to be due to asthma * 4. Moderate aortic stenosis based on his last echocardiogram * 5. Mild obesity * 6. Classic sleep apnea symptomatology * 7. Hypertriglyceridemia * RECOMMENDATIONS: * 1. I advised the patient to continue present medical and continue to encourage him to take fish [id number] mg daily * 2. The patient was advised to lose weight and to exercise. * 3. I advised him to repeat his lab and echocardiogram * 4. The patient was advised to notify me any change in cardiac status or symptoms. * 5. I advised him to discuss with his mixing technician the diagnosis of sleep apnea and consider outpatient sleep study * 6. Follow-up in [address] [facility] [employer] Work Phone: History of Present illness Narrative* Patient is here for follow-up and management for coronary artery disease with remote PCI to the marginal, hyperlipidemia, aortic stenosis, obesity and hypercaloric triglyceridemia./Time I saw him he denies any other complaint of chest pain, palpitation, lightheadedness, dizziness or syncope. He continues to be reasonably active. No recent lab available. * ASSESSMENT: * 1. Coronary artery disease, prior percutaneous coronary intervention to the marginal, he denies chest pain. His last stress test 3 years ago was negative. Described functional class I * 2. Hyperlipidemia controlled. No recent labs * 3. Symptoms of asthma and shortness of breath unchanged from before. Appears to be due to asthma * 4. Moderate aortic stenosis based on his last echocardiogram * 5. Mild obesity * 6. Classic sleep apnea symptomatology * 7. Hypertriglyceridemia * RECOMMENDATIONS: * 1. I advised the patient to continue present medical and continue to encourage him to take fish [id number] mg daily * 2. The patient was advised to lose weight and to exercise. * 3. I advised him to repeat his lab and echocardiogram * 4. The patient was advised to notify me any change in cardiac status or symptoms. * 5. I advised him to discuss with his mixing technician the diagnosis of sleep apnea and consider outpatient sleep study * 6. Follow-up in 9 months [facility] Work Phone: History of Present illness Narrative* Patient is here for earlier follow-up. He was seen recently by his family physician and complained some palpitation and shortness of breath. Patient underwent echocardiogram that showed basically moderate aortic stenosis with preserved LV systolic function and his echo was unchanged from before. Heunderwent Holter monitor which showed frequent ventricular and supraventricular ectopy including runs of supraventricular tachycardia. Patient has been on long-term diuretic therapy was given by his mixing technician for concern about volume overload. His recent laboratory data showed his potassium was3.8. The patient describes intermittent lightheadedness but no dizziness or syncope. * ASSESSMENT: * 1. Coronary artery disease, prior percutaneous coronary intervention to the marginal, he denies chest pain. His last stress test 3 years ago was negative. Described functional class I * 2., Frequent ventricular ectopy and supraventricular ectopy and runs of supraventricular tachycardia * 3. Asthma and breath unchanged from before. * 4. Moderate aortic stenosis based on his l recent echocardiogram * 5. Mild obesity * 6. Classic sleep apnea symptomatology * 7. Hypertriglyceridemia * 8. SVT * RECOMMENDATIONS: * 1. I advised the patient to stop his hydrochlorothiazide. Start magnesium oxide 400 mg twice daily and metoprolol ER 25 mg daily and advised to notify me change in cardiac status or symptoms * 2. The patient was advised to lose weight and to exercise. * 3. I advised him to repeat his Holter monitor in 30 days to see if medication changes will make an impact. If continue to have frequent ventricular ectopy will consider EP evaluation * 4. The patient was advised to notify me any change in cardiac status or symptoms. * 5. I advised him to discuss with his mixing technician the diagnosis of sleep apnea and consider outpatient sleep study * 6. Follow-up in 9 months [facility] 250 DO Work Phone: Hospital course Narrative No data available for this section [facility] Dis[facility] instructions No data available for this section [facility] No data available for this section [facility] (narrative)* Consultation (Routine) - Authorized Specialty Diagnoses / Procedures Referred By Contac t Referred To Contact Cardiology Diagnoses 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 Procedures Follow Up In Cardiology Ivette Purcell MD [address] [place] [address] 2, [place] [address] Ivette Purcell MD [address] [place] [address] 2, [place] [address] Referral ID Status Reason Start Date Expiration Date V isits Requested Visits Authorized [id number] Authorized 03/08/2023 03/07/2024 1 1 [facility] Work Phone: Summary Purpose Family History No Family History Records FoundUnknown Family Member Name Dates Details Family history of arterioscl erotic cardiovascular disease: Father(V17.49, Z82.49) Status:Active Unknown Family Member Name Dates Details Family history of arterioscl erotic cardiovascular disease: Father(V17.49, Z82.49) Status:Active Unknown Family Member Name Dates Details Family history of arterioscl erotic cardiovascular disease: Father(V17.49, Z82.49) Status:Active Unknown Family Member Name Dates Details Family history of arterioscl erotic cardiovascular disease: Father(V17.49, Z82.49) Status:Active Unknown Family Member Name Dates Details Family history of arterioscl erotic cardiovascular disease: Father(V17.49, Z82.49) Status:Active Unknown Family Member Name Dates Details Family history of arterioscl erotic cardiovascular disease: Father(V17.49, Z82.49) Status:Active Unknown Family Member Name Dates Details Family history of arterioscl erotic cardiovascular disease: Father(V17.49, Z82.49) Status:Active Unknown Family Member Name Dates Details Family history of arterioscl erotic cardiovascular disease: Father(V17.49, Z82.49) Status:Active Unknown Family Member Name Dates Details Family history of arterioscl erotic cardiovascular disease: Father(V17.49, Z82.49) Status:Active Unknown Family Member Name Dates Details Family history of arterioscl erotic cardiovascular disease: Father(V17.49, Z82.49) Status:Active Unknown Family Member Name Dates Details Family history of arterioscl erotic cardiovascular disease: Father(V17.49, Z82.49) Status:Active Unknown Family Member Name Dates Details Family history of arterioscl erotic cardiovascular disease: Father(V17.49, Z82.49) Status:Active Unknown Family Member Name Dates Details Family history of arterioscl erotic cardiovascular disease: Father(V17.49, Z82.49) Status:Active Unknown Family Member Name Dates Details Family history of arterioscl erotic cardiovascular disease: Father(V17.49, Z82.49) Status:Active Unknown Family Member Name Dates Details Family history of arterioscl erotic cardiovascular disease: Father(V17.49, Z82.49) Status:Active Unknown Family Member Name Dates Details Family history of arterioscl erotic cardiovascular disease: Father(V17.49, Z82.49) Status:Active Advance Directives No Advanced Directives Records FoundNo Advanced Directives Records FoundNo Advanced Directives Records FoundNo Advanced Directives Records FoundNo Advanced Directives Records FoundNo Advanced Directives Records FoundNo Advanced Directives Records FoundNo Advanced Directives Records FoundNo Advanced Directives Records Found Chief Complaint ABHIJIT TAVAREZ is being seen for a 6 month follow-up of.ABHIJIT TAVAREZ is being seen for a 6 month follow-up of.ABHIJIT TAVAREZ is being seen for a 9 month follow-up of.ABHIJIT TAVAREZ is being seen for a 9 month follow-up of.ABHIJIT TAVAREZ is being seen for a 9 month follow-up of.patient here for ekg ordered by Dr. Ivette Purcell MD due to Bradycardia Dr. Jorge Kee MD in suite. They are here due to PCP d/c'd Metoprolol due to low heart rate. Medication list updated verbally with patient. No cardiac complaints noted at this time. Ekg reviewed by Bisi Duval RN prior to discharge. Dr. Ivette Purcell MD for review. ABHIJIT TAVAREZ is being seen for a 4 month follow-up of. Additional Source Comments (unrecognized sect ion and content) No Status Records FoundNo Status Records FoundNo Status Records FoundNo Status Records FoundNo Status Records FoundNo Status Records FoundNo Status Records FoundNo Status Records FoundNo Status Records Found INFORMATION SOURCE (unrecogn ized section and content) DATE CREATED AUTHOR 08/30/2017 [facility] DATE CREATED AUTHOR AUTHOR'S ORGANIZ ATION 10/03/2018 [facility] DATE CREATED AUTHOR AUTHOR'S ORGANIZ ATION 09/29/2019 [facility] DATE CREATED AUTHOR AUTHOR'S ORGANIZ ATION 11/01/2022 [facility] DATE CREATED AUTHOR AUTHOR'S ORGANIZ ATION 11/11/2022 [facility] DATE CREATED AUTHOR AUTHOR'S ORGANIZ ATION 11/20/2022 [facility] DATE CREATED AUTHOR AUTHOR'S ORGANIZ ATION 11/25/2022 [facility] DATE CREATED AUTHOR AUTHOR'S ORGANIZ ATION 03/10/2023 [facility] DATE CREATED AUTHOR AUTHOR'S ORGANIZ ATION 05/19/2023 [facility] REASON FOR VISIT (unrecogniz ed section and content) Reason Comments Follow-up Aortic stenosis Care Teams (unrecognized sec tion and content) Mortgage Underwriter Relationship Specialty Start Date End Date Candelaria Gusman DO [address] [facility] [place] [address] PCP - General 08/22/18 Ivette Purcell MD [address] [facility] [address] [place] [address] PCP - MSSP ACO Attributed Provider 06/05/22 FOR RECORDS PERTAINING TO PATIENTS WHO ARE OR HAVE BEEN ENROLLED IN A CHEMICAL DEPENDENCY/SUBSTANCEABUSE PROGRAM, SOME INFORMATION MAY BE OMITTED. This clinical summary was aggregated from multiple sources. Caution should be exercised in using it in the provision of clinical care. This summary normalizes information from multiple sources, and as a consequence, information in this document may materially change the coding, format and clinical context of patient data. In addition, data may be omitted in some cases. CLINICAL DECISIONS SHOULD BE BASED ON THE PRIMARY CLINICAL RECORDS. [facility]. provides no warranty or guarantee of the accuracy or completeness of information in this document.
[2023-05-19] MEDS: LACTATED RINGER'S SOLUTION 1,000 ML 50 ML IV (09:53)
[2023-05-19] MEDS: CIPROFLOXACIN IN 5 % DEXTROSE 400 MG/200 ML PIGGYBACK 200 MG IV (11:13)
--- NOTE | 2023-05-19 12:04 | PM.URSON ---
Urology Surgery Operative Note Operative Note Procedure Date: 05/19/23 Time Out Performed: yes Pre-op Diagnosis: None left ureteral calculus Post-op Diagnosis: same as pre-op Procedures performed: 1. Cystoscopy. 2. Left rigid ureteral dilation. 3. Left ureteroscopy. 4. Thulium laser lithotripsy of left ureteral calculus. 5. Stone fragment basket extraction. 6. Placement of 6 [place] variable length left ureteral stent Anesthesia: General-LMA Primary Surgeon: Jovani Mckeon Complications: None Estimated blood loss (mL): 5 Findings: Left distal ureteral stenosis Specimens: Left distal ureteral calculus Drains: 6 [place] variable length left ureteral stent Indications for Procedures: This gentleman has a retained 5 to 6 mm left distal ureteral calculus. He now presents for definitive ureteroscopic stone manipulation and stent placement. He has signed an informed consent after all risks were explained. Detailed description of Procedure: The patient was brought to the operating room and placed on the operating room table in the supine position. SCDs were placed on the lower extremities and turned on and functioning during the entire case. Timeout was done by all parties in the room. We all agreed upon the patient's identification and the planned procedures for this patient. Genn. anesthesia was then administered. The patient was then repositioned into the modified dorsal lithotomy position. All pressure points were satisfactorily padded. Genitalia were sterilely prepped and draped in usual fashion. I started by passing a 22 [place] Olympus cystoscope per year urethra and into the bladder. Anterior urethra was normal. Prostatic urethra was open. Panendoscopy in the bladder showed high-grade bladder damage with diffuse diverticuli. No tumors were seen. I then passed a Glidewire through the scope and cannulated the left ureter and I could feel a stone as the wire ascended. I then used a 8 [place] rigid dilator and dilated the distal ureter. Again, I could feel a stone in the distal ureter. After the wire was removed I then passed a semirigid ureteroscope adjacent to the wire through the urethra into the bladder and into the left ureter. I was able to get right to the stone. I then passed a 270 ? laser fiber through the scope and made contact with the stone. Laser lithotripsy was done at 8 W in the fragmenting mode. After cracking the stone up into several pieces I then used a 0 tip nitinol basket and engaged pieces and dumped them in the base of the bladder. I went up and down the ureter numerous times removing pieces until the left ureter was free of stone. The ureteroscope was removed. The cystoscope was backloaded over the wire and passed into the bladder. I then slid a 6 [place] variable length ureteral stent over the wire up into the left kidney. The wire was removed and there were good curls in the kidney and in the bladder. The Ilich evacuator was used to get the stone pieces out of the base of the bladder and these were sent for stone analysis. The bladder was drained of its contents and the scope was then removed. He was then transferred to a [facility] bed and wheeled to PACU in stable condition.
--- NOTE | 2023-05-19 12:51 | PC.NURSE ---
Up to bathroom and voided without difficulty figueroa colored urine without clots
[2023-05-26 20:07] LABS: Calcium Oxalate Dihydrate 30 % (.); Calcium Oxalate Monohydrate 70 % (.); Size 4x3 mm (.)
== END 2023-05-19 13:20 | disposition home or self-care (01) ==
PROVIDERS: Visit Provider Urology
PROC: (CPT 52356; principal; 2023-05-19 10:20)
DX: Z79.01 Long term (current) use of anticoagulants (principal); I48.91 Unspecified atrial fibrillation; I25.10 Atherosclerotic heart disease of native coronary artery without angina pectoris; Q62.10 Congenital occlusion of ureter, unspecified; N40.1 Benign prostatic hyperplasia with lower urinary tract symptoms; R35.1 Nocturia; N41.1 Chronic prostatitis; Z87.891 Personal history of nicotine dependence; E78.00 Pure hypercholesterolemia, unspecified; Z87.442 Personal history of urinary calculi; N13.2 Hydronephrosis with renal and ureteral calculous obstruction
CPT/HCPCS: 52356; 36415; 76000; 82365; 99999; J2704